=== PATIENT | male | born 1975 | race Hispanic/Latino ===

== ENCOUNTER 2016-07-16 14:07 | Emergency (ER) | payer MEDICAID ==
[2016-07-16 14:08] VITALS: BMI 34.2
[2016-07-16 14:25] VITALS: O2SAT 96
--- NOTE | 2016-07-16 15:13 | C.PDOC ---
History Of Present Illness 41-year-old male, PMHx includes chronic back pain and EtOH Abuse, presents to the emergency department with complaints of back and leg pain/tremors for the past few days. Patient states he has not had a drink in two days and is trying to self-detox. Patients last ED visit was two days ago. Denies vomiting, fevers , chills, or any other associated symptoms. No other complaints at this time. Time Seen by Provider: 07/16/16 14:17 Chief Complaint (Nursing): Back Pain History Per: Patient Onset/Duration Of Symptoms: Days Past Medical History Reviewed: Historical Data, Nursing Documentation, Vital Signs Vital Signs: Last Vital Signs Temp 98.5 F 07/16/16 15:25 Pulse 103 H 07/16/16 15:25 Resp 20 07/16/16 15:25 BP 131/91 H 07/16/16 15:25 Pulse Ox 96 07/16/16 15:25 - Medical History PMH: Anxiety, Arthritis (to knees per pt), Asthma, Back Problems (lumbar spine injury), Bipolar Disorder, Depression, HTN (per old chart but pt denies), Paranoia Denies: Diabetes, Hepatitis, HIV, Chronic Kidney Disease, Seizures, Sexually Transmitted Disease - [facility] Procedures DETOXIFICATION SERVICES FOR SUBSTANCE ABUSE TREATMENT (09/30/15) GROUP ROLE PLAYER FOR SUBSTANCE ABUSE TREATMENT, PSYCHOEDUCATION (06/26/16) GROUP PSYCHOTHERAPY (06/26/16) INDIV PSYCHOTHERAPY FOR SUBSTANCE ABUSE TREATMENT, SUPPORT (06/26/16) INDIVIDUAL PSYCHOTHERAPY, SUPPORTIVE (06/26/16) INJECT/INFUSE NEC (10/10/14) MEDICATION MANAGEMENT (06/26/16) NEBULIZER THERAPY (02/16/14) Family History: States: Unknown Family Hx - Social History Hx Tobacco Use: Yes (light smoker) Hx Alcohol Use: Yes Hx Substance Use: No - Immunization History Hx Tetanus Toxoid Vaccination: Yes Hx Influenza Vaccination: Yes Hx Pneumococcal Vaccination: Yes Review Of Systems Except As Marked, All Systems Reviewed And Found Negative. Constitutional: Negative for: Fever Gastrointestinal: Negative for: Vomiting Musculoskeletal: Positive for: Back Pain, Leg Pain Skin: Negative for: Rash Physical Exam - Physical Exam Appears: Non-toxic, No Acute Distress Skin: Warm, Dry, No Rash Eye(s): bilateral: Normal Inspection Nose: Normal Oral Mucosa: Moist Lips: Normal Appearing Neck: Normal ROM Respiratory: No Accessory Muscle Use Back: No Paraspinal Tenderness Extremity: Normal ROM ED Course And Treatment O2 Sat by Pulse Oximetry: 96 Disposition Counseled Patient/Family Regarding: Diagnosis, Need For Followup, Rx Given - Disposition Referrals: [facility] [Outside] Disposition: HOME/ ROUTINE Disposition Time: 15:15 Condition: STABLE Additional Instructions: FOLLOW UP WITH YOUR DOCTOR/CLINIC IN 1-2 DAYS USE MEDICATIONS NEEDED RETURN TO ER IF SYMPTOMS WORSEN Prescriptions: Cyclobenzaprine [Cyclobenzaprine HCl] 10 mg PO BID PRN #12 tab PRN Reason: pain/muscle Naproxen [Naprosyn Tab] 375 mg PO BID PRN #20 tab PRN Reason: pain Instructions: Back Pain (ED) Print Language: THAI - POA Present On Arrival: None - Clinical Impression Clinical Impression: Thoracic back pain, Chronic back pain - Scribe Statement The provider has reviewed the documentation as recorded by the Lenka Apodaca All medical record entries made by the Kennaibcarter were at my direction and personally dictated by me. I have reviewed the chart and agree that the record accurately reflects my personal performance of the history, physical exam, medical decision making, and the department course for this patient. I have also personally directed, reviewed, and agree with the discharge instructions and disposition.
[2016-07-16 15:27] VITALS: BP 131/91; PULSE 103; RESP 20; TEMP 98.5
== END 2016-07-16 15:35 | disposition home or self-care (01) ==
LOC: C.ER 14:07
DX: M54.6 Pain in thoracic spine (principal)

== ENCOUNTER 2016-07-19 11:39 | Inpatient (IN) | payer MEDICAID ==
[2016-07-19 11:39] VITALS: BMI 34.2
--- NOTE | 2016-07-19 13:41 | C.PDOC ---
History Of Present Illness The patient, a 41 y/o male whose PMHx includes alcohol abuse, presents to the ED requesting alcohol detoxification. Patient states he has been a heavy drinker for the past 2 years. He states he normally drinks around 2 pints of Vodka per day and reports his last drink was around 4 days ago. Patient reports body aches, tremors, weakness and nausea. Patient is concerned about impending withdrawal and alcohol related seizures (although he has no PMHx of such). Patient denies fever, chills, headache, vomiting, diarrhea at this time. Time Seen by Provider: 07/19/16 12:04 Chief Complaint (Nursing): Substance Abuse History Per: Patient History/Exam Limitations: intoxication Onset/Duration Of Symptoms: Days Current Symptoms Are (Timing): Still Present Suicide/Self Injury Attempted (Context): None Modifying Factor(s): Alcohol Associated Symptoms: denies: Suicidal Thoughts, Suicidal Plan Additional History Per: Patient Past Medical History Reviewed: Historical Data, Nursing Documentation, Vital Signs Vital Signs: Last Vital Signs Temp 98.2 F 07/19/16 15:40 Pulse 82 07/19/16 15:40 Resp 18 07/19/16 15:40 BP 119/77 07/19/16 15:40 Pulse Ox 96 07/19/16 15:57 - Medical History PMH: Anxiety, Arthritis (to knees per pt), Asthma, Back Problems (lumbar spine injury), Bipolar Disorder, Depression, HTN (per old chart but pt denies), Paranoia Denies: Diabetes, Hepatitis, HIV, Chronic Kidney Disease, Seizures, Sexually Transmitted Disease Surgical History: No Surg Hx - [facility] Procedures DETOXIFICATION SERVICES FOR SUBSTANCE ABUSE TREATMENT (09/30/15) GROUP ELECTORAL OFFICER FOR SUBSTANCE ABUSE TREATMENT, PSYCHOEDUCATION (06/26/16) GROUP PSYCHOTHERAPY (06/26/16) INDIV PSYCHOTHERAPY FOR SUBSTANCE ABUSE TREATMENT, SUPPORT (06/26/16) INDIVIDUAL PSYCHOTHERAPY, SUPPORTIVE (06/26/16) INJECT/INFUSE NEC (10/10/14) MEDICATION MANAGEMENT (06/26/16) NEBULIZER THERAPY (02/16/14) Family History: States: Unknown Family Hx - Social History Hx Tobacco Use: Yes (light smoker) Hx Alcohol Use: Yes Hx Substance Use: No - Immunization History Hx Tetanus Toxoid Vaccination: Yes Hx Influenza Vaccination: Yes Hx Pneumococcal Vaccination: Yes Review Of Systems Constitutional: Negative for: Fever, Chills Gastrointestinal: Positive for: Nausea. Negative for: Vomiting, Diarrhea Musculoskeletal: Positive for: Other (generalized body aches ) Neurological: Positive for: Weakness, Other (+tremors ) Psych: Positive for: Withdrawal, Other (+alcohol detox ). Negative for: Suicidal ideation Physical Exam - Physical Exam Appears: No Acute Distress, Other (+obese ) Skin: Normal Color, Warm, Dry Head: Atraumatic, Normacephalic Eye(s): bilateral: Normal Inspection Oral Mucosa: Moist Neck: Supple Chest: Symmetrical, No Deformity, No Tenderness Cardiovascular: Rhythm Regular, No Murmur, Other (+tachycardia ) Respiratory: Normal Breath Sounds, No Rales, No Rhonchi, No Wheezing Gastrointestinal/Abdominal: Soft, No Tenderness, No Guarding, No Rebound Back: Normal Inspection, No Vertebral Tenderness, No Paraspinal Tenderness Extremity: Normal ROM, Capillary Refill (less than 2 seconds) Neurological/Psych: Oriented x3, Normal Speech, Other (tremulous ) Gait: Steady ED Course And Treatment - Laboratory Results Result Diagrams: 07/19/16 14:07 07/19/16 14:07 ECG: Interpreted By Me, Viewed By Me ECG Rhythm: Sinus Rhythm Interpretation Of ECG: Normal Sinus Rhythm at 80bpm. No ST elevations or depressions. Rate From EC O2 Sat by Pulse Oximetry: 96 (on RA) Pulse Ox Interpretation: Normal Medical Decision Making Medical Decision Making: Impression: 41 y/o male requesting alcohol detox Plan: * labs * EKG * CXR * Librium PO * reassess and disposition Progress Notes: labs, EKG, CXR ordered and reviewed. Patient received Librium PO. Plan is to admit patient to medicine for impending withdrawals as he awaits detox beds. Disposition Discussed With : Grant Jacobsen Counseled Patient/Family Regarding: Studies Performed, Diagnosis - Disposition Disposition: HOSPITALIZED Disposition Time: 13:41 Condition: GUARDED - Clinical Impression Clinical Impression: Alcohol withdrawal - Scribe Statement The provider has reviewed the documentation as recorded by the Scribe (Carmen Sewell) Provider Attestation: All medical record entries made by the Scribe were at my direction and personally dictated by me. I have reviewed the chart and agree that the record accurately reflects my personal performance of the history, physical exam, medical decision making, and the department course for this patient. I have also personally directed, reviewed, and agree with the discharge instructions and disposition. Decision To Admit - Pt Status Changed To: Hospital Disposition Of: Inpatient - Admit Certification Admit to Inpatient:: After my assessment, the patient will require hospitalization for at least two midnights. This is because of the severity of symptoms shown, intensity of services needed, and/or the medical risk in this patient being treated as an outpatient. - InPatient: Physician Admission Certification: I certify that this patient requires 2 or more midnights of care for the following reason:: alcohol withdrawl - . Bed Request Type: Regular Patient Diagnosis: Alcohol withdrawal
[2016-07-19 14:15] LABS: URINE BILIRUBIN NEGATIVE (NEGATIVE); URINE BLOOD NEGATIVE (NEGATIVE); URINE COLOR Yellow (YELLOW); URINE GLUCOSE (UA) NORMAL (Normal); URINE KETONE NEGATIVE (NEGATIVE); URINE LEUKOCYTE ESTERASE NEG Leu/uL (Negative); URINE PROTEIN NEGATIVE (NEGATIVE); URINE UROBILINOGEN NORMAL mg/dL (0.2-1.0); WBC URINE < 1 /hpf (0-5)
[2016-07-19 14:16] LABS: BASO # 0.1 K/uL (0.0-0.2); BASO % 1.3 % (0.0-2.0); EOS # 0.3 K/uL (0.0-0.7); EOS % 3.2 % (0.0-4.0); HEMATOCRIT 47.6 % (35.0-51.0); LYMPH # 2.3 K/uL (1.0-4.3); LYMPH % 23.3 % (20.0-40.0); MEAN CELL VOLUME 90.4 fL (80.0-94.0); MEAN CORPUSCULAR HEMOGLOBIN 30.8 pg (27.0-31.0); MEAN CORPUSCULAR HGB CONC 34.1 g/dL (33.0-37.0); MEAN PLATELET VOLUME 7.7 fL (7.2-11.7); MONO # 0.7 K/uL (0.0-0.8); MONO % 7.6 % (0.0-10.0); NRBC % 0.1 % (0.0-2.0); RED CELL DISTRIBUTION WIDTH 13.2 % (11.5-14.5); WHITE BLOOD COUNT 9.7 K/uL (4.8-10.8)
[2016-07-19 14:22] LABS: CHLORIDE 99 mmol/L (98-107); POTASSIUM 3.6 mmol/L (3.6-5.2); SODIUM 142 mmol/L (132-148)
[2016-07-19 14:24] LABS: BILIRUBIN,TOTAL 0.8 mg/dL (0.2-1.3); CARBON DIOXIDE 28 mmol/L (22-30); GFR AFRICAN-AMERICAN > 60
[2016-07-19 14:25] LABS: ALB/GLOB RATIO 1.3 (1.0-2.1); ALKALINE PHOSPHATASE 38 U/L (38-126); ALT/SGPT 33 U/L (21-72); AST/SGOT 22 U/L (17-59); BLOOD UREA NITROGEN 11 mg/dL (9-20); CALCIUM 9.3 mg/dl (8.6-10.4); GLUCOSE,RANDOM 79 mg/dL (75-110); TOTAL PROTEIN 7.8 g/dL (6.3-8.3)
[2016-07-19 14:26] LABS: ALCOHOL SERUM < 10 mg/dl (0-10)
--- NOTE | 2016-07-19 14:52 | RAD ---
PROCEDURE: CHEST RADIOGRAPH, 1 VIEW HISTORY: Detox/Psy COMPARISON: None available. FINDINGS: LUNGS: No focal consolidation. Slight increased coarse interstitial markings with a few scattered peribronchial cuffing changes. Findings could represent sequela of reactive/inflammatory airway disease or viral illness. PLEURA: No pneumothorax or pleural fluid seen. CARDIOVASCULAR: Normal. OSSEOUS STRUCTURES: No significant abnormalities. VISUALIZED UPPER ABDOMEN: Normal. OTHER FINDINGS: None. IMPRESSION: No focal consolidation. Slight increased coarse interstitial markings with a few scattered peribronchial cuffing changes. Findings could represent sequela of reactive/inflammatory airway disease or viral illness.
[2016-07-19] MEDS ORDERED: Dextrose 5%/0.45% NS 1,000 ML IV ONE (20:14)
[2016-07-19] MEDS: Dextrose 5%/0.45% NS 1,000 ML IV SCH (20:25)
[2016-07-20 01:52] VITALS: RESP 20
[2016-07-20] MEDS: Dextrose 5%/0.45% NS 1,000 ML IV SCH ×2 (08:49→21:20)
[2016-07-20] MEDS: Thiamine 100 mg/ml Inj IM SCH (09:03)
--- NOTE | 2016-07-20 22:22 | CARD ---
APPROVED REPORT EKG Measurement Heart [id number] <Conclusion> Normal sinus rhythm Normal ECG
--- NOTE | 2016-07-21 07:52 | HP ---
The patient is a 41-year-old male admitted to the hospital with chief complaint of alcohol withdrawal , shaking. The patient came, found to be severe alcohol withdrawal, advised admission. The patient has history of alcoholism, hypertension. PHYSICAL EXAMINATION: GENERAL: The patient is awake, alert, shaking of extremities present. VITAL SIGNS: Temperature 98, pulse 90. HEENT: Within normal limits. NECK: Supple. CHEST: Symmetrical. HEART: Regular. ABDOMEN: Soft. EXTREMITIES: No edema. The patient suffers from alcohol withdrawal, alcoholism. The patient placed on bedrest, IV fluids, t hiamine, folic acid, Ativan p.r.n. Grant Castrejon MD cc: [phone] TT: 07/20/2016 12:05:10 en
[2016-07-21 07:54] LABS: BASO # 0.1 K/uL (0.0-0.2); EOS # 0.5 K/uL (0.0-0.7); EOS % 5.6 % (0.0-4.0); HEMATOCRIT 45.7 % (35.0-51.0); LYMPH % 22.7 % (20.0-40.0); MEAN CELL VOLUME 90.7 fL (80.0-94.0); MEAN CORPUSCULAR HEMOGLOBIN 31.3 pg (27.0-31.0); MEAN CORPUSCULAR HGB CONC 34.5 g/dL (33.0-37.0); MEAN PLATELET VOLUME 7.8 fL (7.2-11.7); MONO # 0.6 K/uL (0.0-0.8); MONO % 7.2 % (0.0-10.0); RED CELL DISTRIBUTION WIDTH 13.1 % (11.5-14.5); WHITE BLOOD COUNT 8.7 K/uL (4.8-10.8)
[2016-07-21 08:10] LABS: CHLORIDE 99 mmol/L (98-107); SODIUM 137 mmol/L (132-148)
[2016-07-21 08:11] LABS: POTASSIUM 3.8 mmol/L (3.6-5.2)
[2016-07-21 08:13] LABS: ALB/GLOB RATIO 1.3 (1.0-2.1); ALKALINE PHOSPHATASE 37 U/L (38-126); ALT/SGPT 20 U/L (21-72); AST/SGOT 18 U/L (17-59); BILIRUBIN,TOTAL 0.5 mg/dL (0.2-1.3); BLOOD UREA NITROGEN 12 mg/dL (9-20); CARBON DIOXIDE 25 mmol/L (22-30); GFR AFRICAN-AMERICAN > 60; GLUCOSE,RANDOM 92 mg/dL (75-110); TOTAL PROTEIN 6.8 g/dL (6.3-8.3)
[2016-07-21 08:14] LABS: CALCIUM 8.7 mg/dl (8.6-10.4)
--- NOTE | 2016-07-21 08:59 | CP.PCM.PN ---
Subjective - Date & Time of Evaluation Date of Evaluation: 07/21/16 Time of Evaluation: 07:10 - Subjective Subjective: PGY2 Medicine Note - Dr. Jacobsen's Service: Patient seen and examined at bedside this AM. Patient states he has been a heavy drinker for the past 2 years. He states he normally drinks around 2 pints of Vodka per day and reports his last drink was around 6 days ago. Patient reports tremors, body aches, weakness and balance impairment. Patient says he has difficulty walking to the bathroom because his balance is off. Patient denies fever, chills, nausea, vomiting, diarrhea, constipation, dysuria. Objective - Vital Signs/Intake and Output Vital Signs (last 24 hours): Temp Pulse Resp BP Pulse Ox 97.9 F 91 H 20 132/81 95 07/21/16 08:00 07/21/16 08:00 07/21/16 08:00 07/21/16 08:00 07/21/16 08:00 - Medications Medications: Current Medications Chlordiazepoxide (Librium) 50 mg PO Q6H [facility] Stop: 07/22/16 16:01 Last Admin: 07/21/16 04:29 Dose: 50 mg Folic Acid (Folic Acid) 1 mg PO DAILY [facility] Last Admin: 07/20/16 09:03 Dose: 1 mg Dextrose/Sodium Chloride (Dextrose 5%/0.45% Ns 1000 Ml) 1,000 mls @ 80 mls/hr IV .[id number] [facility] Last Admin: 07/20/16 21:20 Dose: 80 mls/hr Lorazepam (Ativan) 2 mg IVP Q6H PRN PRN Reason: Anxiety Last Admin: 07/21/16 07:35 Dose: 2 mg Pantoprazole Sodium (Protonix Inj) 40 mg IVP DAILY [facility] Last Admin: 07/20/16 09:03 Dose: 40 mg Thiamine HCl (Vitamin B1 Inj) 100 mg IM DAILY [facility] Last Admin: 07/20/16 09:03 Dose: 100 mg - Labs Labs: 07/21/16 07:38 07/21/16 07:38 - Constitutional Appears: Non-toxic, No Acute Distress - Head Exam Head Exam: NORMAL INSPECTION - Eye Exam Eye Exam: EOMI - ENT Exam ENT Exam: Mucous Membranes Moist - Respiratory Exam Respiratory Exam: Clear to Ausculation Bilateral, NORMAL BREATHING PATTERN. absent: Rales, Rhonchi, Wheezes - Cardiovascular Exam Cardiovascular Exam: REGULAR RHYTHM, +S1, +S2. absent: Gallop, Rubs, Murmur - GI/Abdominal Exam GI & Abdominal Exam: Soft, Normal Bowel Sounds. absent: Distended, Firm, Tenderness - Extremities Exam Extremities Exam: absent: Pedal Edema - Neurological Exam Neurological Exam: Alert, Oriented x3 - Psychiatric Exam Psychiatric exam: Normal Affect, Normal Mood - Skin Skin Exam: Diaphoretic Assessment and Plan - Assessment and Plan (Free Text) Assessment: 1. Alcohol withdrawal Lirbrium Taper Ativan 2mg IVP Q6H PRN anziety Thiamine 100mg IM daily Folic Acid 1mg PO daily Psych consult - Dr. Lowe - help appreciated Awaiting call back to see if patient can be transferred to detox 2. Prophylaxis PT eval Protonix 40mg PO daily
[2016-07-21] MEDS: Dextrose 5%/0.45% NS 1,000 ML IV SCH (11:19)
[2016-07-21] MEDS: Thiamine 100 mg/ml Inj IM SCH (11:24)
[2016-07-21] MEDS: Pantoprazole 40 mg EC Tab PO SCH (11:32)
[2016-07-22 08:13] LABS: BASO # 0.1 K/uL (0.0-0.2); BASO % 1.4 % (0.0-2.0); EOS # 0.4 K/uL (0.0-0.7); EOS % 5.4 % (0.0-4.0); HEMATOCRIT 48.3 % (35.0-51.0); LYMPH # 2.1 K/uL (1.0-4.3); MEAN CELL VOLUME 91.4 fL (80.0-94.0); MEAN CORPUSCULAR HEMOGLOBIN 30.4 pg (27.0-31.0); MEAN CORPUSCULAR HGB CONC 33.2 g/dL (33.0-37.0); MONO # 0.6 K/uL (0.0-0.8); MONO % 6.7 % (0.0-10.0); NRBC % 0.1 % (0.0-2.0); RED CELL DISTRIBUTION WIDTH 13.2 % (11.5-14.5); WHITE BLOOD COUNT 8.3 K/uL (4.8-10.8)
[2016-07-22 08:22] LABS: CHLORIDE 98 mmol/L (98-107); SODIUM 140 mmol/L (132-148)
[2016-07-22 08:24] LABS: BILIRUBIN,TOTAL 0.5 mg/dL (0.2-1.3); GFR AFRICAN-AMERICAN > 60
[2016-07-22 08:25] LABS: ALB/GLOB RATIO 1.4 (1.0-2.1); ALKALINE PHOSPHATASE 38 U/L (38-126); ALT/SGPT 21 U/L (21-72); AST/SGOT 22 U/L (17-59); BLOOD UREA NITROGEN 13 mg/dL (9-20); CARBON DIOXIDE 28 mmol/L (22-30); GLUCOSE,RANDOM 87 mg/dL (75-110); TOTAL PROTEIN 7.2 g/dL (6.3-8.3)
[2016-07-22 08:26] LABS: CALCIUM 9.2 mg/dl (8.6-10.4)
--- NOTE | 2016-07-22 09:38 | CP.PCM.PN ---
Subjective - Date & Time of Evaluation Date of Evaluation: 07/22/16 Time of Evaluation: 07:05 - Subjective Subjective: PGY2 Medicine Note - Dr. Jacobsen's Service: Patient seen and examined at bedside this AM. Patient reports improvement in tremors, body aches, weakness and balance impairment. Patient says he has difficulty walking to the bathroom because his balance is off. Patient was told by physical therapy he should use a rolling walker or wheelchair to get arlund but he says he likes walking. Patient was counseled to not walk around on his home because of risk of falling. Patient denies fever, chills, nausea, vomiting, diarrhea, constipation, dysuria. Objective - Vital Signs/Intake and Output Vital Signs (last 24 hours): Temp Pulse Resp BP Pulse Ox 97.2 F L 84 20 123/84 98 07/22/16 08:00 07/22/16 08:00 07/22/16 08:00 07/22/16 08:00 07/22/16 08:00 Intake and Output: 07/22/16 07/22/16 06:59 18:59 Intake Total 360 Balance 360 - Medications Medications: Current Medications Chlordiazepoxide (Librium) 50 mg PO Q6H [facility] Stop: 07/22/16 16:01 Last Admin: 07/22/16 04:12 Dose: 50 mg Folic Acid (Folic Acid) 1 mg PO DAILY [facility] Last Admin: 07/21/16 11:22 Dose: 1 mg Dextrose/Sodium Chloride (Dextrose 5%/0.45% Ns 1000 Ml) 1,000 mls @ 80 mls/hr IV .[id number] [facility] Last Admin: 07/21/16 11:19 Dose: Not Given Lorazepam (Ativan) 2 mg IVP Q6H PRN PRN Reason: Anxiety Last Admin: 07/22/16 01:50 Dose: 2 mg Pantoprazole Sodium (Protonix Ec Tab) 40 mg PO DAILY [facility] Last Admin: 07/21/16 11:32 Dose: Not Given Thiamine HCl (Vitamin B1 Inj) 100 mg IM DAILY [facility] Last Admin: 07/21/16 11:24 Dose: 100 mg - Labs Labs: 07/22/16 07:58 07/22/16 07:58 - Constitutional Appears: Non-toxic, No Acute Distress - Head Exam Head Exam: NORMAL INSPECTION - Eye Exam Eye Exam: EOMI - ENT Exam ENT Exam: Mucous Membranes Moist - Respiratory Exam Respiratory Exam: Clear to Ausculation Bilateral, NORMAL BREATHING PATTERN. absent: Rales, Rhonchi, Wheezes - Cardiovascular Exam Cardiovascular Exam: REGULAR RHYTHM, +S1, +S2. absent: Gallop, Rubs, Murmur - GI/Abdominal Exam GI & Abdominal Exam: Soft, Normal Bowel Sounds. absent: Firm, Guarding, Tenderness - Extremities Exam Extremities Exam: Normal Capillary Refill. absent: Pedal Edema - Neurological Exam Neurological Exam: Alert, Oriented x3 - Psychiatric Exam Psychiatric exam: Normal Affect, Normal Mood - Skin Skin Exam: Normal Color, Warm Assessment and Plan - Assessment and Plan (Free Text) Assessment: 1. Alcohol withdrawal Lirbrium Taper Ativan 2mg IVP Q6H PRN anziety Thiamine 100mg IM daily Folic Acid 1mg PO daily Psych consult - Dr. Lowe - help appreciated Awaiting call back to see if patient can be transferred to detox 2. Alcoholic Myopathy Case management referral for discharge planning to [facility]/TCU 2. Prophylaxis PT eval - recommends TCU Protonix 40mg PO daily
[2016-07-22 10:18] LABS: POTASSIUM 4.1 mmol/L (3.6-5.2)
[2016-07-22] MEDS: Pantoprazole 40 mg EC Tab PO SCH (10:40)
[2016-07-22] MEDS: Thiamine 100 mg/ml Inj IM SCH (10:59)
[2016-07-23 01:43] VITALS: TEMP 97.4
[2016-07-23 07:06] LABS: BASO # 0.1 K/uL (0.0-0.2); BASO % 1.3 % (0.0-2.0); EOS # 0.5 K/uL (0.0-0.7); EOS % 7.4 % (0.0-4.0); HEMATOCRIT 44.4 % (35.0-51.0); LYMPH # 1.9 K/uL (1.0-4.3); MEAN CELL VOLUME 91.2 fL (80.0-94.0); MEAN CORPUSCULAR HEMOGLOBIN 30.6 pg (27.0-31.0); MEAN CORPUSCULAR HGB CONC 33.5 g/dL (33.0-37.0); MEAN PLATELET VOLUME 7.9 fL (7.2-11.7); MONO # 0.6 K/uL (0.0-0.8); MONO % 8.7 % (0.0-10.0); RED CELL DISTRIBUTION WIDTH 13.2 % (11.5-14.5); WHITE BLOOD COUNT 6.9 K/uL (4.8-10.8)
[2016-07-23 07:18] LABS: CHLORIDE 100 mmol/L (98-107); SODIUM 140 mmol/L (132-148)
[2016-07-23 07:19] LABS: POTASSIUM 3.6 mmol/L (3.6-5.2)
[2016-07-23 07:21] LABS: ALB/GLOB RATIO 1.4 (1.0-2.1); ALKALINE PHOSPHATASE 33 U/L (38-126); ALT/SGPT 23 U/L (21-72); AST/SGOT 21 U/L (17-59); BILIRUBIN,TOTAL 0.3 mg/dL (0.2-1.3); BLOOD UREA NITROGEN 14 mg/dL (9-20); CARBON DIOXIDE 27 mmol/L (22-30); GFR AFRICAN-AMERICAN > 60; GLUCOSE,RANDOM 94 mg/dL (75-110); TOTAL PROTEIN 6.5 g/dL (6.3-8.3)
[2016-07-23 07:22] LABS: CALCIUM 8.6 mg/dl (8.6-10.4)
[2016-07-23 08:49] VITALS: BP 135/87; PULSE 77; O2SAT 98
[2016-07-23] MEDS: Pantoprazole 40 mg EC Tab PO SCH (09:59)
--- NOTE | 2016-07-23 10:28 | CP.PCM.PN ---
Subjective - Date & Time of Evaluation Date of Evaluation: 07/23/16 Time of Evaluation: 07:10 - Subjective Subjective: PGY2 Medicine Note - Dr. Jacobsen's Service: Patient seen and examined at bedside this AM. Patient says he feels he has his balance back and is no longer weak. Patient reports walking around the floor many times yesterday. Physical therapy cleared him for DC home. Patient denies fever, chills, nausea, vomiting, diarrhea, constipation, dysuria. Patient reports lipoma on his back for many years that hurts him sometimes. Objective - Vital Signs/Intake and Output Vital Signs (last 24 hours): Temp Pulse Resp BP Pulse Ox 97.4 F L 77 20 135/87 98 07/23/16 08:00 07/23/16 08:00 07/23/16 08:00 07/23/16 08:00 07/23/16 08:00 Intake and Output: 07/23/16 07/23/16 06:59 18:59 Intake Total 240 Balance 240 - Medications Medications: Current Medications Folic Acid (Folic Acid) 1 mg PO DAILY [facility] Last Admin: 07/23/16 09:59 Dose: 1 mg Lorazepam (Ativan) 1 mg PO Q6H PRN PRN Reason: Seizure activity Last Admin: 07/22/16 15:06 Dose: 1 mg Pantoprazole Sodium (Protonix Ec Tab) 40 mg PO DAILY [facility] Last Admin: 07/23/16 09:59 Dose: 40 mg Quetiapine Fumarate (Seroquel) 50 mg PO DAILY [facility] Last Admin: 07/23/16 09:59 Dose: 50 mg Thiamine HCl (Vitamin B1 Tab) 100 mg PO DAILY [facility] Last Admin: 07/23/16 09:59 Dose: 100 mg - Labs Labs: 07/23/16 06:30 07/23/16 06:30 - Constitutional Appears: Non-toxic, No Acute Distress - Head Exam Head Exam: NORMAL INSPECTION - Eye Exam Eye Exam: EOMI - ENT Exam ENT Exam: Mucous Membranes Moist - Respiratory Exam Respiratory Exam: Clear to Ausculation Bilateral, NORMAL BREATHING PATTERN. absent: Rales, Rhonchi, Wheezes - Cardiovascular Exam Cardiovascular Exam: REGULAR RHYTHM, +S1, +S2. absent: Gallop, Rubs, Murmur - GI/Abdominal Exam GI & Abdominal Exam: Soft, Normal Bowel Sounds. absent: Firm, Guarding, Tenderness - Extremities Exam Extremities Exam: Normal Capillary Refill. absent: Pedal Edema - Neurological Exam Neurological Exam: Alert, Oriented x3 - Psychiatric Exam Psychiatric exam: Normal Affect, Normal Mood - Skin Skin Exam: Normal Color, Warm Assessment and Plan - Assessment and Plan (Free Text) Assessment: 1. Alcohol withdrawal Lirbrium Taper Ativan 2mg IVP Q6H PRN anxiety Thiamine 100mg IM daily Folic Acid 1mg PO dailyx 2. Alcoholic Myopathy Resolved 2. Prophylaxis PT eval - recommends dc home now Protonix 40mg PO daily Discharge patient home with thiamine and multivitamin and instructions to follow up with PMD
[2016-07-23] MEDS ORDERED: Vancomycin 1 gm/NS 200 ml 200 ML IVPB ONE (12:00)
--- NOTE | 2016-07-23 15:09 | PCM.PSYCH ---
Initial Psychiatric Evaluation - Initial Psychiatric Evaluation Type of Admission: Voluntary Legal Status: Capacity Chief Complaint (in patient's own words): "I was drinking a lot again" History of Present Illness and Precipitating Events: Pt seen, chart reviewed, case discussed with team. Pt is a 41yo M that is well known to the psych team for detox and treatment of his EtOH use d/o and MDD. Pt was recently discharged from the psych unit after having been treated for EtOH withdrawal and for his mood disorder, he states that he relapsed a day after he was discharged because he couldn't get his medication anywhere due to lack of insurance. He reports to drinking 2 pints of vodka daily after he was sent home and came back after he started to experience more withdrawal symptoms. The pt appears to be in no distress on examination and is not complaining of any withdrawal symptoms. He indicates a desire to continue treatment as an outpt and help to set that up. The pt currently denies tremors, nausea, headache, vomiting, hallucinations, delusions, seizures, homicidal ideation, suicidal ideation. Social: homeless; Tobacco - 2-3 cig/day; ETOH - 3-4 pint/day; denies illicit drug use Psych Hx: Bipolar, anxiety, depression, suicidal attempt in his 20s (OD on pills ) Family Psych Hx: denies Family substance use: denies PMHx: denies Medications: denies Current Medications: Active Medications Generic Name Dose Route Start Last Admin Trade Name Freq PRN Reason Stop Dose Admin Folic Acid 1 mg 07/20/16 10:00 07/23/16 09:59 Folic Acid PO 1 mg DAILY [facility] Administration Lorazepam 1 mg 07/22/16 10:30 07/22/16 15:06 Ativan PO 1 mg Q6H PRN Administration Seizure activity Pantoprazole Sodium 40 mg 07/21/16 10:00 07/23/16 09:59 Protonix Ec Tab PO 40 mg DAILY [facility] Administration Quetiapine Fumarate 50 mg 07/22/16 22:00 07/23/16 09:59 Seroquel PO 50 mg DAILY [facility] Administration Thiamine HCl 100 mg 07/23/16 10:00 07/23/16 09:59 Vitamin B1 Tab PO 100 mg DAILY [facility] Administration Past Psychiatric History - Past Psychiatric History Previous Treatment History: Inpatient Pertinent Medical Hx (Current Medical&Sleep Prob, Allergies): Allergies Allergy/AdvReac Type Severity Reaction Status Date / Time No Known Allergies Allergy Verified 07/16/16 14:31 Clindamycin [Cleocin] 300 mg PO Q6H #28 cap 07/23/16 Multivitamin [Multivitamins] 1 each PO DAILY #30 capsule 07/23/16 Thiamine [Vitamin B1 Tab] 100 mg PO DAILY #30 tab 07/23/16 Review of Systems - Review of Systems All systems: reviewed and no additional remarkable complaints except - Psychiatric Psychiatric: Anxiety, Irritability Mental Status Examination - Personal Presentation Personal Presentation: Looks stated age - Affect Affect: Constricted - Motor Activity Motor Activity: Calm - Reliability in Providing Information Reliability in Providing Information: Good - Speech Speech: Organized - Mood Mood: Anxious - Formal Thought Process Formal Thought Process: No Impairment - Obsessions/Compulsions Obsessions: No Compulsions: No - Cognitive Functions Orientation: Person, Place, Situation, Time Sensorium: Alert Attention/Concentration: Attentive Abstract Thinking: [place] Estimate of Intelligence: Below average Judgement: Intact, as evidence by: Good judgement, Intact, as evidence by: Insight regarding need for hospitalization - Risk Risk: Withdrawal, Diminished functioning - Strength & Assets Inventory Strength & Assets Inventory: Cooperative - Limitations Limitations: Living alone DSM 5 DX - DSM 5 DSM 5 Diagnosis: Primary: bipolar disorder depressed moderate EtOH use d/o - severe - Recommended/Plan of Treatment Treatment Recommendations and Plan of Treatment: Patient psychiatric stable will be discharged Prognosis: good with treament
== END 2016-07-23 15:10 | disposition home or self-care (01) | DRG 750 ==
LOC: C.ER 11:39 → C.9E 13:42 → C.3T 23:17
PROVIDERS: ADMIT Internal Medicine Pulmonary Disease; ATTEND Internal Medicine Pulmonary Disease
DX: F10.230 Alcohol dependence with withdrawal, uncomplicated (principal); G72.1 Alcoholic myopathy; F31.32 Bipolar disorder, current episode depressed, moderate; M65.9 Synovitis and tenosynovitis, unspecified; J45.909 Unspecified asthma, uncomplicated; F17.210 Nicotine dependence, cigarettes, uncomplicated; M17.0 Bilateral primary osteoarthritis of knee

== ENCOUNTER 2016-08-15 20:05 | Emergency (ER) | payer MEDICAID, OTHER ==
[2016-08-15 20:06] VITALS: BMI 34.2
[2016-08-15 20:16] VITALS: BP 123/85
[2016-08-15] MEDS ORDERED: Albuterol-Ipratrop 3 mg / 0.5 (3 ml) UD ONE ×2 (20:47→21:35)
[2016-08-15] MEDS ORDERED: Albuterol-Ipratrop 3 mg / 0.5 (3 ml) UD INH STA (20:47)
--- NOTE | 2016-08-15 20:53 | C.PDOC ---
History Of Present Illness 41 y/o male presents to the ED with complains of fever, sore throat, cough and chest congestion for the past 3 days. Pt was seen at [place] yesterday, discharged with prescriptions which he wasn't able to fill. Pt denies chest pain , abdominal pain, nausea, vomiting, diarrhea or any other complaints. Time Seen by Provider: 08/15/16 20:41 Chief Complaint (Nursing): Flu-like Symptoms History Per: Patient History/Exam Limitations: no limitations Onset/Duration Of Symptoms: Days Current Symptoms Are (Timing): Still Present Sick Contacts (Context): None Associated Symptoms: Sore Throat, Cough, Other (chest congestion). denies: Fever, Vomiting, Diarrhea Severity: Moderate Recent travel outside of the [place]: No Past Medical History Reviewed: Historical Data, Nursing Documentation, Vital Signs Vital Signs: Last Vital Signs Temp 99.6 F 08/15/16 21:54 Pulse 108 H 08/15/16 21:54 Resp 20 08/15/16 21:54 BP 123/85 08/15/16 20:12 Pulse Ox 96 08/15/16 21:54 - Medical History PMH: Anxiety, Arthritis, Asthma, Back Problems (lumbar spine injury), Bipolar Disorder, Depression, HTN, Paranoia - [facility] Procedures DETOXIFICATION SERVICES FOR SUBSTANCE ABUSE TREATMENT (09/30/15) GROUP SPEECH LANGUAGE PATHOLOGIST FOR SUBSTANCE ABUSE TREATMENT, PSYCHOEDUCATION (06/26/16) GROUP PSYCHOTHERAPY (07/11/16) INDIV PSYCHOTHERAPY FOR SUBSTANCE ABUSE TREATMENT, SUPPORT (07/11/16) INDIVIDUAL PSYCHOTHERAPY, SUPPORTIVE (06/26/16) INJECT/INFUSE NEC (10/10/14) MEDICATION MANAGEMENT (06/26/16) NEBULIZER THERAPY (02/16/14) Family History: States: Unknown Family Hx - Social History Hx Tobacco Use: Yes (light smoker) Hx Alcohol Use: Yes Hx Substance Use: No - Immunization History Hx Tetanus Toxoid Vaccination: Yes Hx Influenza Vaccination: Yes Hx Pneumococcal Vaccination: Yes Review Of Systems Except As Marked, All Systems Reviewed And Found Negative. Constitutional: Positive for: Fever ENT: Positive for: Throat Pain Cardiovascular: Negative for: Chest Pain Respiratory: Positive for: Cough, Other (chest congestion) Gastrointestinal: Negative for: Nausea, Vomiting, Abdominal Pain, Diarrhea Physical Exam - Physical Exam Appears: Non-toxic, No Acute Distress Skin: Warm, Dry, No Rash Head: Atraumatic, Normacephalic Eye(s): bilateral: Normal Inspection Ear(s): Bilateral: Normal Oral Mucosa: Moist Throat: Erythema (mild), No Exudate Neck: Normal ROM, Supple Chest: Symmetrical Cardiovascular: Rhythm Regular, No Friction Rub, No Murmur Respiratory: Normal Breath Sounds, No Rales, No Rhonchi, No Wheezing, Other ( actively coughing) Gastrointestinal/Abdominal: Soft, No Tenderness Back: Normal Inspection, No CVA Tenderness Extremity: Normal ROM, No Swelling Extremity: Bilateral: Atraumatic Neurological/Psych: Oriented x3, Normal Speech, Normal Motor Gait: Steady ED Course And Treatment O2 Sat by Pulse Oximetry: 97 (on room air) Pulse Ox Interpretation: Normal Progress Note: Plan: motrin, nebulizer treatment Medical Decision Making Medical Decision Making: Old records reviewed the patient was seen in [facility] for similar symptoms and was discharged home on Z-pack but did not fill the medications. CXR done yesterday and will not repeat as lungs remain CTA and no wheezing at this time. On re-exam, the patient reports improvement of symptoms. Abdomen is soft, non- tender and tolerating PO well. Lungs are CTA, heart is RRR. Follow up with the medical doctor within 1-2 days without fail. Return if worsened. s Disposition - Disposition Referrals: [facility] [Outside] Disposition: HOME/ ROUTINE Disposition Time: 22:08 Condition: GOOD Additional Instructions: Follow up with the medical doctor within 1-2 days without fail. Return if worsened. 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 - Scribe Statement The provider has reviewed the documentation as recorded by the Kennaibcarter [facility] All medical record entries made by the Kennaibcarter were at my direction and personally dictated by me. I have reviewed the chart and agree that the record accurately reflects my personal performance of the history, physical exam, medical decision making, and the department course for this patient. I have also personally directed, reviewed, and agree with the discharge instructions and disposition.
[2016-08-15 21:55] VITALS: PULSE 108; RESP 20; TEMP 99.6
[2016-08-15 22:10] VITALS: O2SAT 97
== END 2016-08-15 22:24 | disposition home or self-care (01) ==
LOC: C.ER 20:05
DX: J45.909 Unspecified asthma, uncomplicated (principal); Z87.891 Personal history of nicotine dependence

== ENCOUNTER 2016-08-29 16:28 | Inpatient (IN) | payer MEDICAID, OTHER ==
[2016-08-29 16:28] VITALS: BMI 34.2
[2016-08-29 17:33] LABS: BASO # 0.1 K/uL (0.0-0.2); BASO % 0.8 % (0.0-2.0); EOS # 0.2 K/uL (0.0-0.7); EOS % 1.5 % (0.0-4.0); HEMATOCRIT 46.2 % (35.0-51.0); LYMPH # 3.9 K/uL (1.0-4.3); LYMPH % 32.1 % (20.0-40.0); MEAN CELL VOLUME 89.1 fL (80.0-94.0); MEAN CORPUSCULAR HEMOGLOBIN 30.6 pg (27.0-31.0); MEAN CORPUSCULAR HGB CONC 34.3 g/dL (33.0-37.0); MEAN PLATELET VOLUME 7.4 fL (7.2-11.7); MONO % 8.3 % (0.0-10.0); NRBC % 0.1 % (0.0-2.0); RED CELL DISTRIBUTION WIDTH 13.2 % (11.5-14.5)
[2016-08-29 17:39] LABS: CHLORIDE 107 mmol/L (98-107); SODIUM 148 mmol/L (132-148)
[2016-08-29 17:40] LABS: POTASSIUM 3.9 mmol/L (3.6-5.2)
[2016-08-29 17:41] LABS: GFR AFRICAN-AMERICAN > 60
[2016-08-29 17:42] LABS: ALB/GLOB RATIO 1.4 (1.0-2.1); ALKALINE PHOSPHATASE 46 U/L (38-126); ALT/SGPT 39 U/L (21-72); AST/SGOT 25 U/L (17-59); BILIRUBIN,TOTAL 0.6 mg/dL (0.2-1.3); BLOOD UREA NITROGEN 12 mg/dL (9-20); CALCIUM 8.7 mg/dl (8.6-10.4); CARBON DIOXIDE 23 mmol/L (22-30); GLUCOSE,RANDOM 115 mg/dL (75-110); TOTAL PROTEIN 7.4 g/dL (6.3-8.3)
[2016-08-29 17:43] LABS: ALCOHOL SERUM 271 mg/dl (0-10)
--- NOTE | 2016-08-29 18:51 | C.PDOC ---
History Of Present Illness <Magi Otoole - Last Filed: 08/29/16 19:03> <Edison Ramirez - Last Filed: 08/29/16 23:56> 41 y/o male presents to ED with complaint of suicidal ideation. Patient states he wants to "jump in front of a bus". Also reports alcohol use today. Otherwise , denies suicidal attempt, homicidal ideation, or other medical complaints. ( Magi Otoole) History Per: Patient History/Exam Limitations: no limitations Current Symptoms Are (Timing): Still Present Suicide/Self Injury Attempted (Context): None Modifying Factor(s): Alcohol Associated Symptoms: Suicidal Thoughts, Suicidal Plan Recent travel outside of the [place]: No <Magi Otoole - Last Filed: 08/29/16 19:03> <Edison Ramirez - Last Filed: 08/29/16 23:56> Time Seen by Provider: 08/29/16 17:39 Chief Complaint (Nursing): Psychiatric Evaluation Past Medical History Reviewed: Historical Data, Nursing Documentation, Vital Signs - Medical History PMH: Anxiety, Arthritis, Asthma, Back Problems (lumbar spine injury), Bipolar Disorder, Depression, HTN, Paranoia Family History: States: Unknown Family Hx - Social History Hx Tobacco Use: Yes (light smoker) Hx Alcohol Use: (couple mths ago) Hx Substance Use: Yes (3 years ago) - Immunization History Hx Tetanus Toxoid Vaccination: Yes Hx Influenza Vaccination: Yes Hx Pneumococcal Vaccination: Yes <Magi Otoole - Last Filed: 08/29/16 19:03> Review Of Systems Except As Marked, All Systems Reviewed And Found Negative. Constitutional: Negative for: Fever, Chills Cardiovascular: Negative for: Chest Pain Respiratory: Negative for: Cough, Shortness of Breath, Wheezing Gastrointestinal: Negative for: Vomiting, Abdominal Pain Skin: Negative for: Rash Neurological: Negative for: Headache, Dizziness Psych: Positive for: Suicidal ideation <Magi Otoole - Last Filed: 08/29/16 19:03> Physical Exam - Physical Exam Appears: Non-toxic, No Acute Distress, Other (EtOH on breath) Skin: Normal Color, Warm, Dry Head: Atraumatic, Normacephalic Eye(s): bilateral: Normal Inspection Chest: Symmetrical Cardiovascular: Rhythm Regular Respiratory: Normal Breath Sounds, No Rales, No Rhonchi, No Wheezing Gastrointestinal/Abdominal: Soft, No Tenderness, No Guarding, No Rebound Back: Normal Inspection Extremity: Normal ROM, Capillary Refill (< 2 sec. ) Neurological/Psych: Oriented x3, Normal Speech, Normal Cognition <Magi Otoole - Last Filed: 08/29/16 19:03> ED Course And Treatment - Laboratory Results Result Diagrams: 08/29/16 17:25 08/29/16 17:25 O2 Sat by Pulse Oximetry: 96 (RA) Pulse Ox Interpretation: Normal Progress Note: Labs ordered. Crisis eval ordered. As per crisis, further managment pending clinical sobriety. <Magi Otoole - Last Filed: 08/29/16 19:03> - Laboratory Results Result Diagrams: 08/29/16 17:25 08/29/16 17:25 Pulse Ox Interpretation: Normal <Edison Ramirez - Last Filed: 08/29/16 23:56> ED OBSERVATION Date of observation admission: 08/29/16 Time of observation admission: 19:03 <Magi Otoole - Last Filed: 08/29/16 19:03> <Jamila Ramirezdi - Last Filed: 08/29/16 23:56> - Observation admission statement Patient is being placed in observation because:: ETOH intoxication (Magi Otoole) - Goals of Observation Goals of observation are:: will be evaluated by Crisis when sober (Magi Otoole) Disposition - Disposition Disposition Time: 19:04 <Magi Otoole - Last Filed: 08/29/16 19:03> Discussed With : Maude Spicer Comment: accepted the pt on her service and took over the care at 11:55 PM <Edison Ramirez - Last Filed: 08/29/16 23:56> - Disposition Disposition: HOSPITALIZED Condition: FAIR - Clinical Impression Clinical Impression: Alcohol abuse, Alcohol intoxication, Major depression - 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 - Scribe Statement The provider has reviewed the documentation as recorded by the Scribe <Magi Otoole - Last Filed: 08/29/16 19:03> <Edison Ramirez - Last Filed: 08/29/16 23:56> - Scribe Statement César Moussa Provider Scribe Attestation: All medical record entries made by the Scribe were at my direction and personally dictated by me. I have reviewed the chart and agree that the record accurately reflects my personal performance of the history, physical exam, medical decision making, and the department course for this patient. I have also personally directed, reviewed, and agree with the discharge instructions and disposition. (Magi Otoole) Physician Patient Turnover Patient Signed Over To: Edison Ramirez Handoff Comments: pending sobriety, crisis eval <Magi Otoole - Last Filed: 08/29/16 19:03> Decision To Admit <Magi Otoole - Last Filed: 08/29/16 19:03> - Pt Status Changed To: Hospital Disposition Of: Inpatient - Admit Certification Admit to Inpatient:: After my assessment, the patient will require hospitalization for at least two midnights. This is because of the severity of symptoms shown, intensity of services needed, and/or the medical risk in this patient being treated as an outpatient. - InPatient: Physician Admission Certification: I certify that this patient requires 2 or more midnights of care for the following reason:: After my assessment, the patient will require hospitalization for at least two midnights. This is because of the severity of symptoms shown, intensity of services needed, and/or the medical risk in this patient being treated as an outpatient. - . Bed Request Type: Psychiatry Admitting Physician: Maude Spicer <Edison Ramirez - Last Filed: 08/29/16 23:56> - . Patient Diagnosis: Alcohol abuse, Alcohol intoxication, Major depression
[2016-08-29 22:27] LABS: RBC URINE 1 /hpf (0-3); URINE BACTERIA RARE (<OCC); URINE BILIRUBIN NEGATIVE (NEGATIVE); URINE BLOOD NEGATIVE (NEGATIVE); URINE COLOR Yellow (YELLOW); URINE GLUCOSE (UA) NORMAL (Normal); URINE KETONE 1+ mg/dL (NEGATIVE); URINE LEUKOCYTE ESTERASE NEG Leu/uL (Negative); URINE PROTEIN NEGATIVE (NEGATIVE); URINE UROBILINOGEN NORMAL mg/dL (0.2-1.0); WBC URINE 2 /hpf (0-5)
[2016-08-30] MEDS ORDERED: Pneumococcal 23-Valent Vaccine IM ONE (01:34)
[2016-08-30 07:27] VITALS: O2SAT 99
[2016-08-30] MEDS: Multiple Vitamins Tab PO SCH (09:56)
[2016-08-30] MEDS: buPROPion 150 mg/24 Hours XL Tab PO SCH (10:06)
[2016-08-31] MEDS: buPROPion 150 mg/24 Hours XL Tab PO SCH (09:11)
[2016-08-31] MEDS: Multiple Vitamins Tab PO SCH (09:11)
--- NOTE | 2016-09-01 08:38 | PCM.PSYCH ---
Initial Psychiatric Evaluation - Initial Psychiatric Evaluation Legal Status: Capacity Chief Complaint (in patient's own words): i wanted to jump in front of a bus Patient's Reaction to Hospitalization: i feel safe here History of Present Illness and Precipitating Events: pt is a 41 year old white single homeless unemployed male who suffers from depression and anxiety. He was recently discharged from but did not take meds or keep outpt appointment because he had no money. Pt now has medicaid so can get his meds. Pt lost his job with [employer] in [place]. Pt has been living in shelters. Pt states his mother has stage 4 Breast Cancer and is being cared for at home.Pt has auditory hallucinations. he feels helpless, worthless and hopeless. He has no energy, no motivation and is anhedonic. He lacks insight and jugment into his illness and life situation Current Medications: Active Medications Generic Name Dose Route Start Last Admin Trade Name Freq PRN Reason Stop Dose Admin Benztropine Mesylate 0.5 mg 08/30/16 10:00 08/31/16 17:53 Cogentin PO 0.5 mg BID TOREY Administration Bupropion HCl 150 mg 08/30/16 10:00 08/31/16 09:11 Wellbutrin Xl PO 150 mg DAILY TOREY Administration Chlordiazepoxide 25 mg 08/30/16 06:00 09/01/16 06:27 Librium PO 09/03/16 05:59 25 mg Q12H TOREY Administration Taper Chlordiazepoxide 25 mg 08/30/16 01:32 08/30/16 01:42 Librium PO 25 mg Q6 PRN Administration withdrawals Escitalopram Oxalate 10 mg 08/31/16 10:00 08/31/16 09:17 Lexapro PO 10 mg DAILY TOREY Administration Folic Acid 1 mg 08/30/16 10:00 08/31/16 09:11 Folic Acid PO 1 mg DAILY TOREY Administration Haloperidol 5 mg 08/30/16 10:00 08/31/16 17:53 Haldol PO 5 mg BID TOREY Administration Hydroxyzine HCl 25 mg 08/30/16 01:22 08/30/16 01:41 Atarax PO 25 mg Q6 PRN Administration Agitation Multivitamins 1 tab 08/30/16 10:00 08/31/16 09:11 Hexavitamin PO 1 tab DAILY TOREY Administration Quetiapine Fumarate 25 mg 08/30/16 18:00 08/31/16 17:53 Seroquel PO 25 mg TID TOREY Administration Thiamine HCl 100 mg 08/30/16 10:00 08/31/16 09:11 Vitamin B1 Tab PO 100 mg DAILY TOREY Administration Trazodone HCl 50 mg 08/30/16 22:00 08/31/16 21:18 Desyrel PO 50 mg HS TOREY Administration Past Psychiatric History - Past Psychiatric History Prior Professional Help: SEE HPI Pertinent Medical Hx (Current Medical&Sleep Prob, Allergies): Allergies Allergy/AdvReac Type Severity Reaction Status Date / Time No Known Allergies Allergy Verified 08/29/16 16:48 Albuterol HFA [Ventolin HFA 90 mcg/actuation (8 g)] 1 puff IH Q4 #1 inhaler Fluticasone/Salmeterol 250/50 [Advair Diskus 250/50] 1 puff IH Q12 puff Methylprednisolone [Medrol Dose Pack (21 tabs)] 4 mg PO ASDIR #21 mg 08/20/16 Review of Systems - Constitutional Constitutional: Malaise - EENT Eyes: UNREMARKABLE Ears: UNREMARKABLE Nose/Mouth/Throat: UNREMARKABLE - Cardiovascular Cardiovascular: UNREMARKABLE - Respiratory Respiratory: UNREMARKABLE - Gastrointestinal Gastrointestinal: UNREMARKABLE - Musculoskeletal Musculoskeletal: UNREMARKABLE - Neurological Neurological: UNREMARKABLE - Psychiatric Psychiatric: Anhedonia, Anxiety, Auditory Hallucinations, Change in Appetite, Depression, Difficulty Concentrating, Hallucinations, Hopelessness, Suicidal Ideation - Endocrine Endocrine: UNREMARKABLE - Hematologic/Lymphatic Hematologic: UNREMARKABLE Mental Status Examination - Personal Presentation Personal Presentation: Looks older than stated age - Affect Affect: Constricted - Motor Activity Motor Activity: Calm - Reliability in Providing Information Reliability in Providing Information: Fair - Speech Speech: Organized - Mood Mood: Depressed, Anxious - Formal Thought Process Formal Thought Process: Hallucinations - Hallucinations/Delusions Hallucinations: Auditory - Cognitive Functions Orientation: Person, Place, Situation, Time Sensorium: Alert Attention/Concentration: Easily distracted Abstract Thinking: [place] Estimate of Intelligence: Average Judgement: Intact, as evidence by: Insight regarding need for hospitalization Memory: Recent intact, as evidence by: 3/3 object recall, Remote intact, as evidenced by: Ability to recall historical events - Risk Risk: Withdrawal - Strength & Assets Inventory Strength & Assets Inventory: Employment history - Limitations Limitations: Living alone DSM 5 DX - DSM 5 DSM 5 Diagnosis: major depressive disorder, recurrent, severe with psychotic features alcohol use disorder severe alcohol withdrawal mDD- Wellbutrin Lexapro [place] CBT recraetional group and milieu therapy supportive psychotherapy alcohol use disorder supportive psychotherapy psychoeducation TX CBT alcohol use disorder Librium taper - Smoking Cessation Smoking Cessation Initiated: No
--- NOTE | 2016-09-01 08:51 | PCM.PYCHPN ---
Psychiatric Progress Note - Psychiatric Progress Note Patient seen today, length of contact: 15 min Patient Chief Complaint: ii am sad and depressedbut not suicidal Problems Identified/Issues Discussed: need for adherence. PAWS mourning process Medical Problems: nothing acute Diagnostic Results: reviewed DSM 5 Symptoms Update: anhedonia aenergy avolition Medication Change: Yes (librium taper) Medical Record Reviewed: Yes Mental Status Examination - Cognitive Function Orientation: Person, Place, Situation, Time Memory: Intact Attention: WNL Concentration: Poor Association: WNL Fund of Knowledge: WNL - Mood Mood: Depressed, Anxious - Affect Affect: Constricted - Formal Thought Process Formal Thought Process: Hallucinations - Suicidal Ideation Suicidal Ideation: No - Homicidal Ideation Homicidal Ideation: No Goal/Treatment Plan - Goal/Treatment Plan Need for Continued Stay: Discharge may exacerbated symptoms Progress Toward Problem(s) and Goals/Treatment Plan: MDD continue Wellbutrin Lexapro Alcohol willie Librium taper Estimated Date of D/C: 09/08/16 - Smoking Cessation Smoking Cessation Initiated: No
[2016-09-01] MEDS: Multiple Vitamins Tab PO SCH (10:26)
[2016-09-01] MEDS: buPROPion 150 mg/24 Hours XL Tab PO SCH (10:26)
--- NOTE | 2016-09-01 10:47 | PCM.PYCHPN ---
Psychiatric Progress Note - Psychiatric Progress Note Patient seen today, length of contact: 15 min Patient Chief Complaint: 'I feel terrible' Problems Identified/Issues Discussed: Patient seen and evaluated, chart reviewed and discussed with nurse. 41 yo M discussed at morning meeting and it was reported that the patient was positive for alcohol and opiate use, suicidal ideation with plans to jump in front of a bus. Upon follow up patient reports that he feeling "terrible", anxious, and feels the same compared to yesterday, and that detox is going "OK". Positive for hearing one voice that tells him to keep drinking and give up on life. Denies current suicidal ideation. Patient is experiencing withdrawal symptoms including body aches, sweating, shaking. Did not sleep well and is taking naps during the day to compensate. Medication side effects include sluggishness that began Thursday. Denies agitation and anger. Denies wanting to hurt self or others, seeing things that are not really there, feeling like people are out to get him, following him, reading his mind and thoughts. Denies chest pain, shortness of breath, fever, chills, headache, nausea, vomiting, abdominal pain. Patient plans to speak to a clinical social work aide about his plans for after the hospital stay. General impression includes depressed and tired disposition. Medication Change: Yes (librium taper) Medical Record Reviewed: Yes Mental Status Examination - Cognitive Function Orientation: Person, Place, Situation, Time Memory: Intact Attention: WNL Concentration: Poor Association: WNL Fund of Knowledge: WNL - Mood Mood: Depressed, Anxious - Affect Affect: Constricted - Speech Speech: Soft - Formal Thought Process Formal Thought Process: Hallucinations, Delusions, Paranoia - Suicidal Ideation Suicidal Ideation: No - Homicidal Ideation Homicidal Ideation: No Goal/Treatment Plan - Goal/Treatment Plan Need for Continued Stay: Discharge may exacerbated symptoms Progress Toward Problem(s) and Goals/Treatment Plan: Major depressive disorder, recurrent, severe with psychotic features CBT Psychoeducation Supportive therapy, group therapy, individual therapy Lexapro 10 mg daily Trazodone 50 mg by mouth daily at bedtime Haldol 5 mg by mouth twice a day Wellbutrin 150 mg by mouth daily Seroquel 5 mg daily TID Alcohol use disorder severe CBT Psychoeducation Supportive therapy, individual therapy Use SD for abstinence Alcohol withdrawal uncomplicated CBT Psychoeducation Supportive therapy, individual therapy Librium when necessary Start Librium taper Start folic acid/thiamine/multivitamin Estimated Date of D/C: 09/08/16
[2016-09-02 08:04] VITALS: RESP 18
[2016-09-02] MEDS: Multiple Vitamins Tab PO SCH (09:34)
[2016-09-02] MEDS: buPROPion 150 mg/24 Hours XL Tab PO SCH (09:34)
--- NOTE | 2016-09-02 11:04 | PCM.PYCHPN ---
Psychiatric Progress Note - Psychiatric Progress Note Patient seen today, length of contact: 15 min Patient Chief Complaint: I'm feeling better Problems Identified/Issues Discussed: Patient seen and evaluated, chart reviewed and discussed with nurse. 41 yo M discussed at morning meeting and it was reported that the patient slept through the night. Yesterday he stayed in his room and also went to the TV room. Upon follow up patient reports improvement in the anxiety and depression. Patient reports improvement in the voices and denies any visual hallucinations. Patient has trouble falling asleep, but says staying asleep is not a problem. Positive appetite. Current symptoms include sweating, shaking. Patient feels the medication is making him 'groggy'. Denies suicidal or homicidal ideation. Denies shortness of breath, chest pain, nausea, vomiting, abdominal pain, body aches, headache, fever, chills. Patient is still unsure of what his plans are after discharge. General impression includes depressed and anxious demeanor. Medication Change: Yes (librium taper, discontinue Seroquel) Medical Record Reviewed: Yes Mental Status Examination - Cognitive Function Orientation: Person, Place, Situation, Time Memory: Intact Attention: WNL Concentration: WNL Association: WNL Fund of Knowledge: WNL - Mood Mood: Depressed, Anxious - Affect Affect: Constricted - Speech Speech: Soft - Formal Thought Process Formal Thought Process: Hallucinations - Suicidal Ideation Suicidal Ideation: No - Homicidal Ideation Homicidal Ideation: No Goal/Treatment Plan - Goal/Treatment Plan Need for Continued Stay: Discharge may exacerbated symptoms Progress Toward Problem(s) and Goals/Treatment Plan: Major depressive disorder, recurrent, severe with psychotic features CBT Psychoeducation Supportive therapy, group therapy, individual therapy Lexapro 10 mg daily Trazodone 50 mg by mouth daily at bedtime Haldol 5 mg by mouth twice a day Wellbutrin 150 mg by mouth daily Seroquel 5 mg daily TID Alcohol use disorder severe CBT Psychoeducation Supportive therapy, individual therapy Use PR for abstinence Alcohol withdrawal uncomplicated CBT Psychoeducation Supportive therapy, individual therapy Librium when necessary Start Librium taper Start folic acid/thiamine/multivitamin Estimated Date of D/C: 09/08/16 - Smoking Cessation Smoking Cessation Initiated: No
[2016-09-03] MEDS: Multiple Vitamins Tab PO SCH (10:14)
--- NOTE | 2016-09-03 10:25 | PCM.PYCHDC ---
Mental Status Examination - Mental Status Examination Orientation: Person, Place, Situation, Time Memory: Intact Mood: Neutral Affect: Constricted Speech: Soft Attention: WNL Concentration: WNL Association: WNL Fund of Knowledge: WNL Formal Thought Process: No Impairment Description of patient's judgement and insight: good, fair Psychotic Thoughts and Behaviors: denies any AVH Suicidal Ideation: No Current Homicidal Ideation?: No Discharge Summary - Discharge Note Reason for Hospitalization: pt is a 41 year old white single homeless unemployed male who suffers from depression and anxiety. He was recently discharged from but did not take meds or keep outpt appointment because he had no money. Pt now has medicaid so can get his meds. Pt lost his job with [employer] in [place]. Pt has been living in shelters. Pt states his mother has stage 4 Breast Cancer and is being cared for at home.Pt has auditory hallucinations. he feels helpless, worthless and hopeless. He has no energy, no motivation and is anhedonic. He lacks insight and jugment into his illness and life situation Consultations:: List each consultation separately and include: 1. Reason for request. 2. Findings. 3. Follow-up Summary of Hospital Course include:: 1. Description of specific treatment plan utilized for patients during their course of treatmen. 2. Summarize the time- course for resolution of acute symptoms and/or regressed behaviors. 3. Describe issues identified and worked on during hospitalization. 4. Describe medication utilized. 5. Describe medical problems identified and treated. 6. Reassessment of suicide risk Summary of Hospital Course: During the course of his stay, patient (pt) started progressively improving and he no longer remained irritable, depressed, suicidal and paranoid. His mood and paranoia were improved and he started attending groups and meetings and started socializing. Patient denied any feelings of hopelessness, helplessness, and worthlessness, denied any problem with the sleep or appetite, denied suicidal ideation or homicidal ideation. Pt denied any auditory or visual hallucinations. Some changes were made in his current medications and patient was discharged on following medications. He tolerated these medications very well and denied any side effects. - Final Diagnosis (DSM 5) Condition upon Discharge: FAIR DSM 5: Major depressive disorder, recurrent, severe with psychotic features Alcohol use disorder severe Alcohol withdrawal uncomplicated Disposition: HOME/ ROUTINE Follow-up Treatment Plan: Education: Pt was educated and counseled about the risks and benefits of taking and not taking medications. Pt was educated and counseled about the risks of drinking and abusing drugs. Pt was educated and counseled to go to the ER or call 911 if pt develop suicidal ideation or homicidal ideation, worsening of symptoms or severe side effects of the meds. Prescriptions/Medication Reconciliation: buPROPion XL [Wellbutrin XL] 150 mg PO DAILY #30 t24 Escitalopram [Lexapro] 10 mg PO DAILY #30 tab Haloperidol [Haldol] 5 mg PO BID #60 tab traZODone [Desyrel] 50 mg PO HS #30 tab - Smoking Cessation Smoking Cessation Medication prescribed: No - Antipsychotic Medications Pt discharged on 2 or more routine antipsychotic medications: No
[2016-09-03] MEDS: buPROPion 150 mg/24 Hours XL Tab PO SCH (10:41)
[2016-09-03 14:18] VITALS: BP 119/79; PULSE 77; TEMP 98.1
== END 2016-09-03 11:40 | disposition home or self-care (01) | DRG 430 ==
LOC: C.ER 16:28 → OBSVTOIN 19:05 → INTOOBSV 19:05 → C.9OBSV 19:05 → OBSVTOIN 23:54 → C.5E 08-30 00:07 → C.9OBSV 08-30 00:07 → C.5E 08-30 00:26
PROVIDERS: ADMIT Psychiatry & Neurology Psychiatry; ATTEND Psychiatry & Neurology Psychiatry
PROC: GZ3ZZZZ Medication Management (ICD-10-PCS; principal; 2016-08-29)
PROC: GZHZZZZ Group Psychotherapy (ICD-10-PCS; 2016-08-29)
PROC: GZ56ZZZ Individual Psychotherapy, Supportive (ICD-10-PCS; 2016-08-29)
PROC: HZ2ZZZZ Detoxification Services for Substance Abuse Treatment (ICD-10-PCS; 2016-08-29)
DX: F33.3 Major depressive disorder, recurrent, severe with psychotic symptoms (principal); F10.230 Alcohol dependence with withdrawal, uncomplicated; F17.210 Nicotine dependence, cigarettes, uncomplicated; M19.90 Unspecified osteoarthritis, unspecified site; I10 Essential (primary) hypertension; J45.909 Unspecified asthma, uncomplicated; F41.9 Anxiety disorder, unspecified; Z59.0 Homelessness

== ENCOUNTER 2016-09-12 18:08 | Observation (INO) | payer MEDICAID ==
[2016-09-12 18:08] VITALS: BMI 34.7
--- NOTE | 2016-09-12 20:12 | C.PDOC ---
History Of Present Illness Patient presents to the ER intoxicated with a complaint of hearing voices telling him to hurt himself. Denies any physical complaint at this time. Time Seen by Provider: 09/12/16 20:12 Chief Complaint (Nursing): Psychiatric Evaluation History Per: Patient History/Exam Limitations: no limitations Onset/Duration Of Symptoms: Hrs Current Symptoms Are (Timing): Still Present Suicide/Self Injury Attempted (Context): None Modifying Factor(s): Alcohol Severity: None Pain Scale Rating Of: 0 Associated Symptoms: Suicidal Thoughts. denies: Depression, Suicidal Plan Involuntary Hold By: None Recent travel outside of the [place]: No Past Medical History Reviewed: Historical Data, Nursing Documentation, Vital Signs Vital Signs: Last Vital Signs Temp 98 F 09/13/16 00:37 Pulse 102 H 09/13/16 00:37 Resp 20 09/13/16 00:37 BP 130/74 09/13/16 00:37 Pulse Ox 96 09/13/16 01:26 - Medical History PMH: Anxiety, Arthritis, Asthma (WAS TAKING MEDS FOR SAME BUT REFUSED IT FOR NOW ), Back Problems (lumbar spine injury), Bipolar Disorder, Depression, HTN, Paranoia Surgical History: No Surg Hx - [facility] Procedures DETOXIFICATION SERVICES FOR SUBSTANCE ABUSE TREATMENT (08/29/16) GROUP WE[employer]ER [employer]IVITY FOR SUBSTANCE ABUSE TREATMENT, PSYCHOEDUCATION (06/26/16) GROUP PSYCHOTHERAPY (08/29/16) INDIV PSYCHOTHERAPY FOR SUBSTANCE ABUSE TREATMENT, SUPPORT (07/11/16) INDIVIDUAL PSYCHOTHERAPY, SUPPORTIVE (08/29/16) INJECT/INFUSE NEC (10/10/14) MEDICATION MANAGEMENT (08/29/16) NEBULIZER THERAPY (02/16/14) Family History: States: No Known Family Hx - Social History Hx Tobacco Use: Yes (light smoker) Hx Alcohol Use: Yes Hx Substance Use: Yes - Immunization History Hx Tetanus Toxoid Vaccination: Yes Hx Influenza Vaccination: Yes Hx Pneumococcal Vaccination: Yes Review Of Systems Constitutional: Negative for: Fever, Chills Gastrointestinal: Negative for: Nausea, Vomiting Neurological: Positive for: Other (ETOH intoxication) Psych: Positive for: Suicidal ideation, Other (Hearing voices) Physical Exam - Physical Exam Appears: Non-toxic, Other (ETOH on breath) Skin: Warm, Dry Oral Mucosa: Moist Chest: Symmetrical, No Tenderness Cardiovascular: Rhythm Regular, No Murmur Respiratory: No Rales, No Rhonchi, No Wheezing Gastrointestinal/Abdominal: Soft, No Tenderness Neurological/Psych: Oriented x3 ED Course And Treatment - Laboratory Results Result Diagrams: 09/12/16 20:28 09/12/16 20:28 O2 Sat by Pulse Oximetry: 96 (Room air) Pulse Ox Interpretation: Normal Progress Note: Blood work and urinalysis ordered. Consulted w/ crisis. Patient was cleared for discharge by dr Marshall Reevaluation Time: 05:39 Reassessment Condition: Improved ED OBSERVATION Discharge: Yes Date of observation admission: 09/12/16 Time of observation admission: 20:20 - Observation admission statement Patient is being placed in observation because:: acute alcohol intoxication - Goals of Observation Goals of observation are:: sobriety - Progress Note Progress Note: 09/12/16 20:20 vitals stable, 09/12/16 22:20 no complaints 09/13/16 00:25 vitals stable 09/13/16 02:25 no complaints Disposition Counseled Patient/Family Regarding: Studies Performed, Diagnosis, Need For Followup - Disposition Disposition: HOME/ ROUTINE Disposition Time: 20:12 Condition: FAIR - Clinical Impression Clinical Impression: Depression - Scribe Statement The provider has reviewed the documentation as recorded by the Scribe Kota Rodriguez All medical record entries made by the Kennaibcarter were at my direction and personally dictated by me. I have reviewed the chart and agree that the record accurately reflects my personal performance of the history, physical exam, medical decision making, and the department course for this patient. I have also personally directed, reviewed, and agree with the discharge instructions and disposition.
[2016-09-12 20:32] LABS: BASO # 0.1 K/uL (0.0-0.2); BASO % 1.3 % (0.0-2.0); EOS # 0.4 K/uL (0.0-0.7); EOS % 4.8 % (0.0-4.0); LYMPH # 2.9 K/uL (1.0-4.3); LYMPH % 36.9 % (20.0-40.0); MEAN CELL VOLUME 90.1 fL (80.0-94.0); MEAN CORPUSCULAR HEMOGLOBIN 30.4 pg (27.0-31.0); MEAN CORPUSCULAR HGB CONC 33.7 g/dL (33.0-37.0); MEAN PLATELET VOLUME 7.7 fL (7.2-11.7); MONO # 0.7 K/uL (0.0-0.8); MONO % 8.5 % (0.0-10.0); NRBC % 0.1 % (0.0-2.0); RED CELL DISTRIBUTION WIDTH 13.8 % (11.5-14.5); WHITE BLOOD COUNT 7.9 K/uL (4.8-10.8)
[2016-09-12 20:41] LABS: CHLORIDE 103 mmol/L (98-107); SODIUM 142 mmol/L (132-148)
[2016-09-12 20:42] LABS: POTASSIUM 3.4 mmol/L (3.6-5.2)
[2016-09-12 20:44] LABS: ALB/GLOB RATIO 1.5 (1.0-2.1); ALKALINE PHOSPHATASE 42 U/L (38-126); ALT/SGPT 26 U/L (21-72); AST/SGOT 19 U/L (17-59); BILIRUBIN,TOTAL 0.6 mg/dL (0.2-1.3); BLOOD UREA NITROGEN 13 mg/dL (9-20); CALCIUM 9.1 mg/dl (8.6-10.4); CARBON DIOXIDE 25 mmol/L (22-30); GFR AFRICAN-AMERICAN > 60; GLUCOSE,RANDOM 97 mg/dL (75-110); TOTAL PROTEIN 7.2 g/dL (6.3-8.3)
[2016-09-12 20:45] LABS: ALCOHOL SERUM 207 mg/dl (0-10)
[2016-09-12 20:46] LABS: RBC URINE 1 /hpf (0-3); URINE BILIRUBIN NEGATIVE (NEGATIVE); URINE COLOR Yellow (YELLOW); URINE GLUCOSE (UA) NORMAL (Normal); URINE KETONE NEGATIVE (NEGATIVE); URINE LEUKOCYTE ESTERASE NEG Leu/uL (Negative); URINE PROTEIN NEGATIVE (NEGATIVE); URINE UROBILINOGEN NORMAL mg/dL (0.2-1.0); WBC URINE < 1 /hpf (0-5)
[2016-09-12 20:49] LABS: URINE BLOOD NEGATIVE (NEGATIVE)
[2016-09-13 00:38] VITALS: RESP 20; TEMP 98
[2016-09-13 06:30] VITALS: BP 130/80; PULSE 80; O2SAT 98
== END 2016-09-13 05:40 | disposition home or self-care (01) ==
LOC: C.ER 18:08 → C.9OBSV 20:18
PROVIDERS: ADMIT Emergency Medicine; ATTEND Emergency Medicine
DX: F10.129 Alcohol abuse with intoxication, unspecified (principal); F20.9 Schizophrenia, unspecified; F31.9 Bipolar disorder, unspecified; I10 Essential (primary) hypertension
CPT/HCPCS: 36415; 80053; 80320; 80324; 80345; 80346; 80349; 80353; 80358; 80361; 81001; 83992; 85025; 99284; G0378

== ENCOUNTER 2016-09-14 15:15 | Emergency (ER) | payer MEDICAID ==
[2016-09-14 15:15] VITALS: BMI 34.7
[2016-09-14 15:25] VITALS: RESP 20; TEMP 97.8
[2016-09-14 16:29] VITALS: BP 122/85; PULSE 101; O2SAT 97
--- NOTE | 2016-09-14 16:33 | C.PDOC ---
History Of Present Illness 41-year-old male, presents to the emergency department requesting detox from alcohol. Patients last drink was a few hours ago. He has a hx of multiple visits to ED for similar complaint. No SI/HI, or physical complaint at this time. Time Seen by Provider: 09/14/16 15:53 Chief Complaint (Nursing): Substance Abuse History Per: Patient History/Exam Limitations: no limitations Onset/Duration Of Symptoms: Days Current Symptoms Are (Timing): Still Present Past Medical History Reviewed: Historical Data, Nursing Documentation, Vital Signs Vital Signs: Last Vital Signs Temp 97.8 F 09/14/16 15:18 Pulse 101 H 09/14/16 16:28 Resp 20 09/14/16 16:28 BP 122/85 09/14/16 16:28 Pulse Ox 97 09/14/16 18:55 - Medical History PMH: Anxiety, Arthritis, Asthma (WAS TAKING MEDS FOR SAME BUT REFUSED IT FOR NOW ), Back Problems (lumbar spine injury), Bipolar Disorder, COPD, Depression, HTN , Paranoia Denies: Diabetes, Hepatitis, HIV, Chronic Kidney Disease, Seizures, Sexually Transmitted Disease - [facility] Procedures DETOXIFICATION SERVICES FOR SUBSTANCE ABUSE TREATMENT (08/29/16) GROUP DIESEL LUBE TECH FOR SUBSTANCE ABUSE TREATMENT, PSYCHOEDUCATION (06/26/16) GROUP PSYCHOTHERAPY (08/29/16) INDIV PSYCHOTHERAPY FOR SUBSTANCE ABUSE TREATMENT, SUPPORT (07/11/16) INDIVIDUAL PSYCHOTHERAPY, SUPPORTIVE (08/29/16) INJECT/INFUSE NEC (10/10/14) MEDICATION MANAGEMENT (08/29/16) NEBULIZER THERAPY (02/16/14) Family History: States: Unknown Family Hx - Social History Hx Tobacco Use: Yes (light smoker) Hx Alcohol Use: Yes Hx Substance Use: Yes - Immunization History Hx Tetanus Toxoid Vaccination: Yes Hx Influenza Vaccination: Yes Hx Pneumococcal Vaccination: Yes Review Of Systems Except As Marked, All Systems Reviewed And Found Negative. Constitutional: Negative for: Fever, Chills Cardiovascular: Negative for: Chest Pain Respiratory: Negative for: Shortness of Breath Neurological: Negative for: Weakness, Numbness Psych: Negative for: Suicidal ideation Physical Exam - Physical Exam Appears: Non-toxic, No Acute Distress Head: Atraumatic Eye(s): bilateral: Normal Inspection Neck: Normal ROM Extremity: Normal ROM Neurological/Psych: Oriented x3, Normal Speech, Normal Cognition Gait: Steady ED Course And Treatment ECG: Interpreted By Me, Viewed By Me ECG Rhythm: Sinus Tachycardia ECG Interpretation: No Acute Changes Rate From EC O2 Sat by Pulse Oximetry: 97 Progress Note: Case was discussed w/ mortar worker Maral, who states that Dr Marshall is aware of patient; there are no detox beds available. Patient made aware ; Pt will be discharged w/ a list of detox programs, and information for the detox co-ordinator/instructions for pre-screening process. Patient is agreeable with plan. All questions answered. Disposition Counseled Patient/Family Regarding: Diagnosis, Need For Followup - Disposition Disposition: HOME/ ROUTINE Disposition Time: 16:31 Condition: STABLE Additional Instructions: Please follow up outpatiently as instructed by Crisis counselor Return to ER if worse Instructions: Alcohol Dependence (ED) - Clinical Impression Clinical Impression: Alcohol abuse - Scribe Statement The provider has reviewed the documentation as recorded by the Scribe Shae Apodaca All medical record entries made by the Scribe were at my direction and personally dictated by me. I have reviewed the chart and agree that the record accurately reflects my personal performance of the history, physical exam, medical decision making, and the department course for this patient. I have also personally directed, reviewed, and agree with the discharge instructions and disposition.
== END 2016-09-14 16:52 | disposition home or self-care (01) ==
LOC: C.ER 15:15
DX: F10.10 Alcohol abuse, uncomplicated (principal); Y90.9 Presence of alcohol in blood, level not specified

== ENCOUNTER 2016-09-21 15:26 | Emergency (ER) | payer MEDICAID ==
[2016-09-21 15:27] VITALS: BMI 34.7
[2016-09-21 15:32] VITALS: O2SAT 97
--- NOTE | 2016-09-21 15:54 | C.PDOC ---
History Of Present Illness 41 year old patient presents to the ED requesting detox from alcohol. Patient admits his last drink was yesterday. Patient has been trying to get a detox admission for several day, but still there are no detox beds available. Patient also complains of shakes, generalized myalgia, and nausea. REQUESTING ETOH DETOX. LAST DRINK YEST. PS HAS BEEN TRYING FOR SEV DAYS FOR DETOX ADMISSION BUT STILL NO DETOX BEDS. CO SHAKES, GEN MYALGIA, NAUSEA. EXAM MILD DIST NONTOXIC +TONGUE FASCIC +FINE TREMORS CV RRR TACHY NO S/S ACUTE INTOX. Time Seen by Provider: 09/21/16 15:45 Chief Complaint (Nursing): Substance Abuse History Per: Patient History/Exam Limitations: no limitations Onset/Duration Of Symptoms: Other Current Symptoms Are (Timing): Still Present Suicide/Self Injury Attempted (Context): None Modifying Factor(s): None Severity: None Pain Scale Rating Of: 0 Recent travel outside of the [place]: No Past Medical History Reviewed: Historical Data, Nursing Documentation, Vital Signs Vital Signs: Last Vital Signs Temp 97.9 F 09/21/16 17:05 Pulse 83 09/21/16 17:05 Resp 17 09/21/16 17:05 BP 126/81 09/21/16 17:05 Pulse Ox 97 09/21/16 17:07 - Medical History PMH: Anxiety, Arthritis, Asthma (WAS TAKING MEDS FOR SAME BUT REFUSED IT FOR NOW ), Back Problems (lumbar spine injury), Bipolar Disorder, COPD, Depression, Paranoia - [facility] Procedures DETOXIFICATION SERVICES FOR SUBSTANCE ABUSE TREATMENT (08/29/16) GROUP OUTSOLE CUTTER MACHINE FOR SUBSTANCE ABUSE TREATMENT, PSYCHOEDUCATION (06/26/16) GROUP PSYCHOTHERAPY (08/29/16) INDIV PSYCHOTHERAPY FOR SUBSTANCE ABUSE TREATMENT, SUPPORT (07/11/16) INDIVIDUAL PSYCHOTHERAPY, SUPPORTIVE (08/29/16) INJECT/INFUSE NEC (10/10/14) MEDICATION MANAGEMENT (08/29/16) NEBULIZER THERAPY (02/16/14) Family History: States: Unknown Family Hx - Social History Hx Tobacco Use: Yes (light smoker) Hx Alcohol Use: Yes Hx Substance Use: Yes - Immunization History Hx Tetanus Toxoid Vaccination: Yes Hx Influenza Vaccination: Yes Hx Pneumococcal Vaccination: Yes Review Of Systems Except As Marked, All Systems Reviewed And Found Negative. Constitutional: Positive for: Malaise (generalized), Other (shakes) Gastrointestinal: Positive for: Nausea. Negative for: Vomiting, Abdominal Pain Physical Exam - Physical Exam Appears: Non-toxic, Other (mild distress, no signs and symptoms) Skin: Warm, Dry Head: Atraumatic, Normacephalic Eye(s): bilateral: Normal Inspection Ear(s): Bilateral: Normal Nose: Normal Oral Mucosa: Moist Tongue: Other (tongue fasciculations) Throat: Normal Neck: Normal ROM, Supple Chest: Symmetrical Cardiovascular: Rhythm Regular (tachycardic) Respiratory: Normal Breath Sounds, No Rales, No Rhonchi, No Wheezing Neurological/Psych: Other (fine tremors) Gait: Steady ED Course And Treatment O2 Sat by Pulse Oximetry: 97 (room air) Pulse Ox Interpretation: Normal Reevaluation Time: 17:07 Reassessment Condition: Improved Progress - Data Reviewed Data Reviewed: Old records Disposition Counseled Patient/Family Regarding: Diagnosis, Need For Followup - Disposition Referrals: ESTEFANY,DETOX [Other] Disposition: HOME/ ROUTINE Disposition Time: 17:07 Condition: IMPROVED Instructions: Abuse of Alcohol (ED) - Clinical Impression Clinical Impression: Alcohol abuse - Scribe Statement The provider has reviewed the documentation as recorded by the Scribe Candy Sewell Provider Attestation: All medical record entries made by the Scribe were at my direction and personally dictated by me. I have reviewed the chart and agree that the record accurately reflects my personal performance of the history, physical exam, medical decision making, and the department course for this patient. I have also personally directed, reviewed, and agree with the discharge instructions and disposition.
[2016-09-21 17:06] VITALS: BP 126/81; PULSE 83; RESP 17; TEMP 97.9
== END 2016-09-21 17:15 | disposition home or self-care (01) ==
LOC: C.ER 15:26
DX: F10.10 Alcohol abuse, uncomplicated (principal); Y90.9 Presence of alcohol in blood, level not specified
CPT/HCPCS: 96372; 99284; J1885

== ENCOUNTER 2016-09-28 21:44 | Inpatient (IN) | payer MEDICAID ==
[2016-09-28 21:45] VITALS: BMI 34.7
[2016-09-28 22:02] VITALS: O2SAT 98
--- NOTE | 2016-09-28 22:15 | C.PDOC ---
History Of Present Illness Pt was transferred here from [facility] for psychiatric admission. He was medically cleared at the referring facility. Time Seen by Provider: 09/28/16 22:11 Chief Complaint (Nursing): Psychiatric Evaluation History Per: Patient Onset/Duration Of Symptoms: Days Current Symptoms Are (Timing): Still Present Severity: Moderate Associated Symptoms: Anxiety, Depression Additional History Per: Prior Records Past Medical History Reviewed: Historical Data, Nursing Documentation, Vital Signs Vital Signs: Last Vital Signs Temp 97.9 F 09/28/16 21:55 Pulse 91 H 09/28/16 21:55 Resp 16 09/28/16 21:55 BP 129/88 09/28/16 21:55 Pulse Ox 98 09/28/16 21:55 - Medical History PMH: Anxiety, Arthritis, Asthma, Back Problems (lumbar spine injury), Bipolar Disorder, COPD, Depression, Paranoia - [facility] Procedures DETOXIFICATION SERVICES FOR SUBSTANCE ABUSE TREATMENT (08/29/16) GROUP AIRLINE STATION AGENT FOR SUBSTANCE ABUSE TREATMENT, PSYCHOEDUCATION (06/26/16) GROUP PSYCHOTHERAPY (08/29/16) INDIV PSYCHOTHERAPY FOR SUBSTANCE ABUSE TREATMENT, SUPPORT (07/11/16) INDIVIDUAL PSYCHOTHERAPY, SUPPORTIVE (08/29/16) INJECT/INFUSE NEC (10/10/14) MEDICATION MANAGEMENT (08/29/16) NEBULIZER THERAPY (02/16/14) Family History: States: Unknown Family Hx - Social History Hx Tobacco Use: Yes (light smoker) Hx Alcohol Use: Yes Hx Substance Use: No - Immunization History Hx Tetanus Toxoid Vaccination: Yes Hx Influenza Vaccination: Yes Hx Pneumococcal Vaccination: Yes Review Of Systems Constitutional: Negative for: Fever Respiratory: Negative for: Hemoptysis Gastrointestinal: Negative for: Vomiting Musculoskeletal: Negative for: Neck Pain Skin: Negative for: Rash Neurological: Negative for: Weakness, Seizures Physical Exam - Physical Exam Appears: Non-toxic, No Acute Distress Skin: Normal Color, Warm, Dry, No Rash Head: Atraumatic, Normacephalic Eye(s): bilateral: PERRL, EOMI Neck: Normal ROM, Supple Cardiovascular: Rhythm Regular Respiratory: Normal Breath Sounds, No Accessory Muscle Use Gastrointestinal/Abdominal: Soft Extremity: Normal ROM, No Deformity Neurological/Psych: Oriented x3, Normal Motor, Normal Sensation ED Course And Treatment O2 Sat by Pulse Oximetry: 98 Pulse Ox Interpretation: Normal Disposition - Disposition Disposition: HOSPITALIZED Disposition Time: 22:14 Condition: STABLE - Clinical Impression Clinical Impression: Depression Decision To Admit - Pt Status Changed To: Hospital Disposition Of: Inpatient - Admit Certification Admit to Inpatient:: After my assessment, the patient will require hospitalization for at least two midnights. This is because of the severity of symptoms shown, intensity of services needed, and/or the medical risk in this patient being treated as an outpatient. - InPatient: Physician Admission Certification: I certify that this patient requires 2 or more midnights of care for the following reason:: Psych. - . Bed Request Type: Psychiatry Admitting Physician: Robert Viera Patient Diagnosis: Depression
[2016-09-28] MEDS ORDERED: Albuterol HFA 90 mcg/actuation (8 g) INH PRN (22:32)
--- NOTE | 2016-09-29 18:38 | PCM.PSYCH ---
Initial Psychiatric Evaluation - Initial Psychiatric Evaluation Type of Admission: Voluntary Legal Status: Capacity Chief Complaint (in patient's own words): I am depressed and was suicidal. History of Present Illness and Precipitating Events: Patient is a 41 years old single, employed, male, with history of depression and alcohol use was admitted because of depression and suicidal ideations. Patient reported that he is very depressed because of his stresses including his mother's breast cancer and for him stress of work. Reported noncompliant with treatment after discharge from the hospital. Patient reported he couldn't afford medications because of no insurance at that time. Reported now he has insurance. But reported that he cannot continue his treatment and also he cannot go to appointments because of his alcohol problem. Patient reported that he starts drinking when he starts feeling more depressed. No patient reported that he started feeling more depressed for last few days with decreased sleep but no change in appetite but he lost about 4 pounds in 1 month. Reported that 2 days ago he had suicidal ideations with plan to cut on his arm. Denied any previous suicidal attempts or any homicidal ideations. Reported he has history of cutting on his arms twice in the past not for suicidal but he wanted to feel pain. Reported he cut on his arm one month ago and he was admitted to [facility] after that. Also reported that he hears voices that sometimes last heard 2 days ago. Reported voices were telling him to jump in front of a bus. Denied any manic or anxiety symptoms. History of 3 previous admissions but no visit to any psychiatrist after discharge from the hospitals. Alcohol: Reported he started drinking alcohol 2 years ago. Started from half pint when increased gradually up to 2 pints daily. Lasting reported 2 days ago. Reported history of 2 previous detox at [facility] and no rehabs. Denied use of any other drugs including cocaine cannabis heroin. Denied smoking cigarette. Patient was born in [place], has high school graduation working, lives in shelters. Never and has no children. His height is 6 feet 1 inch and weight is 254 pounds. Current Medications: Active Medications Generic Name Dose Route Start Last Admin Trade Name Freq PRN Reason Stop Dose Admin Albuterol 1 puff 09/28/16 22:32 Ventolin Hfa 90 Mcg/Actuation (8 G) INH RQ6 PRN Shortness of Breath Benztropine Mesylate 0.5 mg 09/29/16 18:30 Cogentin PO BID TOREY Escitalopram Oxalate 10 mg 09/30/16 10:00 Lexapro PO DAILY TOREY Haloperidol 5 mg 09/29/16 18:30 Haldol PO BID TOREY Lorazepam 1 mg 09/28/16 22:28 09/29/16 18:18 Ativan PO 1 mg Q6H PRN Administration Anxiety Trazodone HCl 100 mg 09/28/16 22:30 09/28/16 23:15 Desyrel PO 100 mg HS TOREY Administration Past Psychiatric History - Past Psychiatric History Previous Treatment History: Inpatient Prior Professional Help: Inpatient detox, inpatient admissions At [facility]: [facility] History of Abuse: None reported History of ETOH/Drug Use: See HPI History of Family Illness: None reported Pertinent Medical Hx (Current Medical&Sleep Prob, Allergies): Allergies Allergy/AdvReac Type Severity Reaction Status Date / Time shellfish derived Allergy RASH Verified 09/28/16 13:03 Ventolin HFA 90 mcg/actuation (8 g) 90 mcg INH PRN PRN 09/21/16 COPD Review of Systems - Psychiatric Psychiatric: Depression Mental Status Examination - Personal Presentation Personal Presentation: Looks stated age - Affect Affect: Depressed - Motor Activity Motor Activity: Calm - Reliability in Providing Information Reliability in Providing Information: Fair - Speech Speech: Organized - Mood Mood: Depressed - Formal Thought Process Formal Thought Process: No Impairment - Hallucinations/Delusions Hallucinations: Other (None reported) Delusions: Other - Obsessions/Compulsions Obsessions: None Compulsions: None - Cognitive Functions Orientation: Person, Place, Situation, Time Sensorium: Alert Attention/Concentration: Attentive Abstract Thinking: [place] Estimate of Intelligence: Average Judgement: Intact, as evidence by: Insight regarding need for hospitalization Memory: Recent intact, as evidence by: 3/3 object recall, Remote intact, as evidenced by: Ability to recall historical events - Risk Risk: Diminished functioning - Strength & Assets Inventory Strength & Assets Inventory: Employment status, Cooperative - Limitations Limitations: Other DSM 5 DX - DSM 5 DSM 5 Diagnosis: Major depressive disorder recurrent severe with psychotic features Alcohol use disorder Alcohol withdrawal - Recommended/Plan of Treatment Treatment Recommendations and Plan of Treatment: Patient education Supportive therapy Start Lexapro 10 mg daily Haloperidol 5 mg twice a day Cogentin 0.5 mg twice a day Ativan 1 mg by mouth every 6 hours when necessary for alcohol withdrawal symptoms. Currently patient has no withdrawal symptoms. Gabapentin 300 mg 3 times a day Projected ELOS: 8-10 days - Smoking Cessation Smoking Cessation Initiated: No Reason for not providing: Patient doesn't smoke cigarettes
--- NOTE | 2016-09-30 15:21 | PCM.PYCHPN ---
Psychiatric Progress Note - Psychiatric Progress Note Patient seen today, length of contact: 16min Patient Chief Complaint: "I'm doing alright." Problems Identified/Issues Discussed: The pt is seen, chart reviewed, case discussed with staff. The patient states that he is doing alright except for some withdrawal symptoms. He also says that he's been living in [place] with a friend but is otherwise homeless. He is willing to go to the [facility]. The pt is compliant with medications and reports no side-effects. Symptoms are improving but needs more time to stabilize. After care discussed, support and psychoeducation given Medication Change: Yes (marely villalpando) Medical Record Reviewed: Yes Mental Status Examination - Cognitive Function Orientation: Person, Place, Situation, Time Memory: Intact Attention: WNL Concentration: WNL Association: WNL Fund of Knowledge: WNL - Mood Mood: Depressed - Affect Affect: Depressed - Speech Speech: Appropriate - Formal Thought Process Formal Thought Process: No Impairment - Suicidal Ideation Suicidal Ideation: No - Homicidal Ideation Homicidal Ideation: No Goal/Treatment Plan - Goal/Treatment Plan Need for Continued Stay: Discharge may exacerbated symptoms, Severe functional impairment Progress Toward Problem(s) and Goals/Treatment Plan: Continue medications but some of the unnecessary ones are discontinued. he agreed Support and psychoeducation daily Attend groups and activities daily After care planning by DESHAUN Estimated Date of D/C: 10/02/16
--- NOTE | 2016-10-01 14:47 | PCM.PYCHPN ---
Psychiatric Progress Note - Psychiatric Progress Note Patient seen today, length of contact: 16min Patient Chief Complaint: "I'm doing alright." Problems Identified/Issues Discussed: The pt is seen, chart reviewed, case discussed with staff. The patient states that he is still a little shaky but has no other complaints. Mood is down at times, nervous about [employer] app[employer] The pt is compliant with medications and reports no side-effects. Symptoms are improving but needs more time to stabilize. After care discussed, support and psychoeducation given Medication Change: No Medical Record Reviewed: Yes Mental Status Examination - Cognitive Function Orientation: Person, Place, Situation, Time Memory: Intact Attention: WNL Concentration: WNL Association: WNL Fund of Knowledge: WNL - Mood Mood: Depressed - Affect Affect: Depressed - Speech Speech: Appropriate - Formal Thought Process Formal Thought Process: No Impairment - Suicidal Ideation Suicidal Ideation: No - Homicidal Ideation Homicidal Ideation: No Goal/Treatment Plan - Goal/Treatment Plan Need for Continued Stay: Discharge may exacerbated symptoms, Severe functional impairment Progress Toward Problem(s) and Goals/Treatment Plan: Continue medications but some of the unnecessary ones are discontinued. he agreed Support and psychoeducation daily Attend groups and activities daily After care planning by [employer] isamar faxed to [facility] in EDD Estimated Date of D/C: 10/02/16
--- NOTE | 2016-10-02 12:35 | PCM.PYCHPN ---
Psychiatric Progress Note - Psychiatric Progress Note Patient seen today, length of contact: 16min Patient Chief Complaint: "I'm fine." Problems Identified/Issues Discussed: The pt is seen, chart reviewed, case discussed with staff. The patient states that he is doing fine and has no complaints. He states that he is planning to go to the [facility] [employer] [facility]. The pt is compliant with medications and reports no side-effects. Symptoms are improving but needs more time to stabilize. After care discussed, support and psychoeducation given. Medication Change: No Medical Record Reviewed: Yes Mental Status Examination - Cognitive Function Orientation: Person, Place, Situation, Time Memory: Intact Attention: WNL Concentration: WNL Association: WNL Fund of Knowledge: WNL - Mood Mood: Depressed - Affect Affect: Depressed - Speech Speech: Appropriate - Formal Thought Process Formal Thought Process: No Impairment - Suicidal Ideation Suicidal Ideation: No - Homicidal Ideation Homicidal Ideation: No Goal/Treatment Plan - Goal/Treatment Plan Need for Continued Stay: Discharge may exacerbated symptoms, Severe functional impairment Progress Toward Problem(s) and Goals/Treatment Plan: Continue medications but some of the unnecessary ones are discontinued. he agreed Support and psychoeducation daily Attend groups and activities daily After care planning by [employer] isamar faxed to [facility] in EDD Estimated Date of D/C: 10/02/16
[2016-10-03 07:27] VITALS: BP 118/77; PULSE 78; RESP 19; TEMP 97.5
--- NOTE | 2016-10-03 08:51 | PCM.PYCHDC ---
Mental Status Examination - Mental Status Examination Orientation: Person, Place, Situation, Time Memory: Intact Mood: Neutral Affect: Broad Speech: Appropriate Attention: WNL Concentration: WNL Association: WNL Fund of Knowledge: WNL Formal Thought Process: No Impairment Suicidal Ideation: No Current Homicidal Ideation?: No Plan: Continue below medications after discharge. Follow after care plan as discussed. Use relapse prevention skills Return to ER or call 911 if suicidal, homicidal or symptoms relapse. Stay away from stress, alcohol and drugs. See primary doctor once a year. Discharge Summary - Discharge Note Reason for Hospitalization: Depression, SI Laboratory Data: Abnormal Lab Results 10/02/16 16:44 HIV 1&2 Antibody Screen Negative Consultations:: List each consultation separately and include: 1. Reason for request. 2. Findings. 3. Follow-up Summary of Hospital Course include:: 1. Description of specific treatment plan utilized for patients during their course of treatmen. 2. Summarize the time- course for resolution of acute symptoms and/or regressed behaviors. 3. Describe issues identified and worked on during hospitalization. 4. Describe medication utilized. 5. Describe medical problems identified and treated. 6. Reassessment of suicide risk Summary of Hospital Course: The pt was admitted and started on treatment with psychotherapy, support, psychoeducation and medications. NH and CBT used. The pt attended groups and activities, as well as milieu therapy. All the risks and benefits of medications are discussed and the patient understood and agreed. After care discussed with the patient and he will [facility]. - Final Diagnosis (DSM 5) Condition upon Discharge: GOOD DSM 5: Major depressive disorder recurrent severe with psychotic features Alcohol use disorder Alcohol withdrawal Disposition: HOME/ ROUTINE Follow-up Treatment Plan: Continue medications but some of the unnecessary ones are discontinued. He agreed Attend [facility], which takes adults too Continue below medications after discharge. Use relapse prevention skills Return to ER or call 911 if suicidal, homicidal or symptoms relapse. Stay away from stress, alcohol and drugs. Prescriptions/Medication Reconciliation: Albuterol HFA [Ventolin HFA 90 mcg/actuation (8 g)] 1 puff INH RQ6 PRN #1 inhaler PRN Reason: Shortness Of Breath Escitalopram [Lexapro] 10 mg PO DAILY #30 tab Gabapentin [Neurontin] 300 mg PO TID #90 cap traZODone [Desyrel] 100 mg PO HS #30 tab - Smoking Cessation Smoking Cessation Medication prescribed: No - Antipsychotic Medications Pt discharged on 2 or more routine antipsychotic medications: No
== END 2016-10-03 12:10 | disposition home or self-care (01) | DRG 430 ==
LOC: C.ER 21:44 → C.5E 22:15
PROC: GZ3ZZZZ Medication Management (ICD-10-PCS; principal; 2016-09-28)
PROC: GZHZZZZ Group Psychotherapy (ICD-10-PCS; 2016-09-28)
PROC: GZ56ZZZ Individual Psychotherapy, Supportive (ICD-10-PCS; 2016-09-28)
DX: F33.3 Major depressive disorder, recurrent, severe with psychotic symptoms (principal); R45.851 Suicidal ideations; F10.282 Alcohol dependence with alcohol-induced sleep disorder; J44.9 Chronic obstructive pulmonary disease, unspecified; J45.909 Unspecified asthma, uncomplicated; R06.02 Shortness of breath; Z87.891 Personal history of nicotine dependence

== ENCOUNTER 2017-02-18 16:13 | Emergency (ER) | payer MEDICAID ==
[2017-02-18 16:13] VITALS: BMI 33.0
[2017-02-18 16:22] VITALS: TEMP 98.1
[2017-02-18] MEDS ORDERED: Multivitamin (MVI) 10 ML, Thiamine 100 MG, Folic Acid 1 MG in Sodium Chloride 0.9% 1,00... IV ONE (16:49)
[2017-02-18 17:08] LABS: BASO # 0.1 K/uL (0.0-0.2); EOS # 0.1 K/uL (0.0-0.7); EOS % 0.6 % (0.0-4.0); HEMATOCRIT 42.9 % (35.0-51.0); LYMPH # 2.4 K/uL (1.0-4.3); LYMPH % 23.1 % (20.0-40.0); MEAN CELL VOLUME 90.9 fL (80.0-94.0); MEAN CORPUSCULAR HEMOGLOBIN 31.5 pg (27.0-31.0); MEAN CORPUSCULAR HGB CONC 34.7 g/dL (33.0-37.0); MEAN PLATELET VOLUME 7.4 fL (7.2-11.7); MONO # 0.7 K/uL (0.0-0.8); MONO % 6.9 % (0.0-10.0); NRBC % 0.1 % (0.0-2.0); RED CELL DISTRIBUTION WIDTH 13.3 % (11.5-14.5); WHITE BLOOD COUNT 10.3 K/uL (4.8-10.8)
[2017-02-18 17:23] LABS: CHLORIDE 100 mmol/L (98-107)
[2017-02-18 17:24] LABS: POTASSIUM 3.6 mmol/L (3.6-5.2); SODIUM 135 mmol/L (132-148)
--- NOTE | 2017-02-18 17:24 | C.PDOC ---
History Of Present Illness 41 y/o male with Hx of ETOH abuse presents to ED requesting detox from ETOH. Patient states last time he consumed ETOH was 3 days ago and reports he feel tremulous. Patient is a regular ED visitor [address] Patient denies HX of DTs, headache, fever, hallucinations or any other complaints at this time. Time Seen by Provider: 02/18/17 16:42 Chief Complaint (Nursing): Psychiatric Evaluation History Per: Patient History/Exam Limitations: no limitations Onset/Duration Of Symptoms: Days Current Symptoms Are (Timing): Still Present Suicide/Self Injury Attempted (Context): None Modifying Factor(s): Alcohol Past Medical History Reviewed: Historical Data, Nursing Documentation, Vital Signs Vital Signs: Last Vital Signs Temp 98.1 F 02/18/17 16:21 Pulse 131 H 02/18/17 16:21 Resp 18 02/18/17 16:21 BP 127/83 02/18/17 16:21 Pulse Ox 94 L 02/18/17 18:39 - Medical History PMH: Anxiety, Arthritis, Asthma, Back Problems, Bipolar Disorder, COPD, Depression, HTN, Paranoia Surgical History: No Surg Hx - [facility] Procedures DETOXIFICATION SERVICES FOR SUBSTANCE ABUSE TREATMENT (08/29/16) GROUP REINFORCING STEEL PLACER FOR SUBSTANCE ABUSE TREATMENT, PSYCHOEDUCATION (06/26/16) GROUP PSYCHOTHERAPY (01/24/17) INDIV PSYCHOTHERAPY FOR SUBSTANCE ABUSE TREATMENT, SUPPORT (07/11/16) INDIVIDUAL PSYCHOTHERAPY, COGNITIVE-BEHAVIORAL (01/24/17) INDIVIDUAL PSYCHOTHERAPY, SUPPORTIVE (09/28/16) INJECT/INFUSE NEC (10/10/14) MEDICATION MANAGEMENT (09/28/16) NEBULIZER THERAPY (02/16/14) Family History: States: No Known Family Hx - Social History Hx Tobacco Use: Yes (light smoker) Hx Alcohol Use: Yes Hx Substance Use: No - Immunization History Hx Tetanus Toxoid Vaccination: Yes Hx Influenza Vaccination: Yes Hx Pneumococcal Vaccination: Yes Review Of Systems Constitutional: Negative for: Fever, Chills Cardiovascular: Negative for: Chest Pain Respiratory: Negative for: Shortness of Breath Gastrointestinal: Negative for: Nausea, Vomiting Skin: Negative for: Rash Neurological: Negative for: Weakness, Numbness, Headache Psych: Negative for: Suicidal ideation Physical Exam - Physical Exam Appears: Non-toxic Skin: Warm, Dry, No Rash Head: Atraumatic, Normacephalic Eye(s): bilateral: Normal Inspection Oral Mucosa: Moist Neck: Normal ROM, Supple Chest: Symmetrical Cardiovascular: Rhythm Regular Respiratory: Normal Breath Sounds, No Rales, No Rhonchi, No Wheezing Gastrointestinal/Abdominal: Soft, No Tenderness, No Guarding, No Rebound Extremity: Capillary Refill (<2 seconds), No Deformity, Other (Tremulous hands bilaterally) Pulses: Left Radial: Normal, Right Radial: Normal Neurological/Psych: Oriented x3, Normal Motor, Normal Sensation ED Course And Treatment - Laboratory Results Result Diagrams: 02/18/17 17:03 02/18/17 17:03 O2 Sat by Pulse Oximetry: 94 (RA) Pulse Ox Interpretation: Normal Medical Decision Making Medical Decision Making: Patient given Ativan and Iv fluids Disposition Counseled Patient/Family Regarding: Diagnosis, Need For Followup - Disposition Disposition: HOME/ ROUTINE Disposition Time: 18:20 Condition: GUARDED Additional Instructions: Follow up with Detox. You can go to other locations. You can call [facility] at [phone] Instructions: Abuse of Alcohol (ED) Forms: [facility] (Micronesian), General Discharge Instructions - POA Present On Arrival: None - Clinical Impression Clinical Impression: Alcohol abuse - Scribe Statement The provider has reviewed the documentation as recorded by the Kennaibcarter Barber All medical record entries made by the Kennaibcarter were at my direction and personally dictated by me. I have reviewed the chart and agree that the record accurately reflects my personal performance of the history, physical exam, medical decision making, and the department course for this patient. I have also personally directed, reviewed, and agree with the discharge instructions and disposition.
[2017-02-18 17:26] LABS: ALB/GLOB RATIO 1.3 (1.0-2.1); ALKALINE PHOSPHATASE 52 U/L (38-126); ALT/SGPT 40 U/L (21-72); AST/SGOT 26 U/L (17-59); BILIRUBIN,TOTAL 0.8 mg/dL (0.2-1.3); BLOOD UREA NITROGEN 13 mg/dL (9-20); CARBON DIOXIDE 25 mmol/L (22-30); GFR AFRICAN-AMERICAN > 60; GLUCOSE,RANDOM 124 mg/dL (75-110); TOTAL PROTEIN 7.5 g/dL (6.3-8.3)
[2017-02-18 17:27] LABS: ALCOHOL SERUM < 10 mg/dl (0-10); CALCIUM 9.3 mg/dl (8.6-10.4)
[2017-02-18 20:57] VITALS: BP 124/70; PULSE 94; RESP 20; O2SAT 97
--- NOTE | 2017-02-20 12:26 | CARD ---
APPROVED REPORT EKG Measurement Heart [id number] <Conclusion> Sinus tachycardia Otherwise normal ECG
== END 2017-02-18 20:57 | disposition home or self-care (01) ==
LOC: C.ER 16:13
DX: F10.10 Alcohol abuse, uncomplicated (principal); Y90.9 Presence of alcohol in blood, level not specified
CPT/HCPCS: 80053; 80320; 80329; 85025; 93005; 96365; 96366; 96375; 96376; 99284; J2060; J3411; J7040

== ENCOUNTER 2017-03-13 15:30 | Emergency (ER) | payer MEDICAID ==
[2017-03-13 15:31] VITALS: BMI 33.0
[2017-03-13 15:37] VITALS: RESP 18
--- NOTE | 2017-03-13 16:18 | C.PDOC ---
History Of Present Illness 41 year old male with Hx of ETOH abuse presents to the ED requesting ETOH detox , he states being a daily drinker felt nauseous, anxious, and shaky this morning. Patient denies any CP, SOB, vomit, diarrhea. Time Seen by Provider: 03/13/17 15:44 Chief Complaint (Nursing): Substance Abuse History Per: Patient History/Exam Limitations: no limitations Onset/Duration Of Symptoms: Hrs Current Symptoms Are (Timing): Still Present Suicide/Self Injury Attempted (Context): None Modifying Factor(s): Alcohol Associated Symptoms: Anxiety. denies: Suicidal Thoughts, Suicidal Plan Recent travel outside of the [place]: No Additional History Per: Patient Past Medical History Reviewed: Historical Data, Nursing Documentation, Vital Signs Vital Signs: Last Vital Signs Temp 97.7 F 03/13/17 16:55 Pulse 103 H 03/13/17 16:55 Resp 18 03/13/17 16:55 BP 135/84 03/13/17 16:55 Pulse Ox 96 03/13/17 16:55 - Medical History PMH: Anxiety, Arthritis, Asthma, Back Problems, Bipolar Disorder, COPD, Depression, HTN, Paranoia, Schizophrenia Denies: Diabetes, Hepatitis, HIV, Chronic Kidney Disease, Seizures, Sexually Transmitted Disease Surgical History: No Surg Hx - [facility] Procedures DETOXIFICATION SERVICES FOR SUBSTANCE ABUSE TREATMENT (08/29/16) GROUP EXPLOSIVES DETONATOR FOR SUBSTANCE ABUSE TREATMENT, PSYCHOEDUCATION (06/26/16) GROUP PSYCHOTHERAPY (03/06/17) INDIV PSYCHOTHERAPY FOR SUBSTANCE ABUSE TREATMENT, SUPPORT (07/11/16) INDIVIDUAL PSYCHOTHERAPY, COGNITIVE-BEHAVIORAL (01/24/17) INDIVIDUAL PSYCHOTHERAPY, SUPPORTIVE (09/28/16) INJECT/INFUSE NEC (10/10/14) MEDICATION MANAGEMENT (09/28/16) NEBULIZER THERAPY (02/16/14) Family History: States: Unknown Family Hx - Social History Hx Tobacco Use: Yes (light smoker) Hx Alcohol Use: Yes Hx Substance Use: No - Immunization History Hx Tetanus Toxoid Vaccination: No Hx Influenza Vaccination: Yes Hx Pneumococcal Vaccination: Yes Review Of Systems Except As Marked, All Systems Reviewed And Found Negative. Gastrointestinal: Positive for: Nausea Neurological: Positive for: Other (Very mild tremors to upper extremities ) Physical Exam - Physical Exam Appears: Other (Mildly uncomfortable) Skin: Normal Color, Warm, Dry Head: Atraumatic, Normacephalic Oral Mucosa: Moist Chest: Symmetrical Cardiovascular: Rhythm Regular (Mildly tachycardia) Respiratory: Normal Breath Sounds, No Accessory Muscle Use, No Rales, No Rhonchi , No Wheezing Gastrointestinal/Abdominal: Soft, No Tenderness Extremity: Other (Very mild tremors to upper extremities) Neurological/Psych: Oriented x3, Normal Speech, Normal Cognition ED Course And Treatment ECG Rhythm: Sinus Tachycardia ECG Interpretation: No Acute Changes Interpretation Of ECG: Normal axis, no acute ST-T chnages Rate From EC O2 Sat by Pulse Oximetry: 97 (On RA) Pulse Ox Interpretation: Normal Progress Note: Plan: -EKG done. -Librium 50 mg PO, and Zofran 4 mg PO administered. Spoke with crisis counselor regarding the patient, there are not detox beds available at the moment. After medications will repeat vitals to see if there is an improvement. Disposition Counseled Patient/Family Regarding: Diagnosis, Need For Followup - Disposition Referrals: [facility] [Outside] Disposition: HOME/ ROUTINE Disposition Time: 16:30 Condition: STABLE Instructions: Alcohol Dependence (ED) Forms: [employer] [facility] (Mohawk) Print Language: SOUTH AFRICAN - Clinical Impression Clinical Impression: Alcohol dependence - Scribe Statement The provider has reviewed the documentation as recorded by the Scribe Doug Whiteside All medical record entries made by the Scribe were at my direction and personally dictated by me. I have reviewed the chart and agree that the record accurately reflects my personal performance of the history, physical exam, medical decision making, and the department course for this patient. I have also personally directed, reviewed, and agree with the discharge instructions and disposition.
[2017-03-13 16:56] VITALS: BP 135/84; PULSE 103; TEMP 97.7
[2017-03-13 17:10] VITALS: O2SAT 97
--- NOTE | 2017-03-17 12:35 | CARD ---
APPROVED REPORT EKG Measurement Heart [id number] <Conclusion> Sinus tachycardia Otherwise normal ECG
== END 2017-03-13 17:05 | disposition home or self-care (01) ==
LOC: C.ER 15:30
DX: F10.20 Alcohol dependence, uncomplicated (principal); Y90.9 Presence of alcohol in blood, level not specified

== ENCOUNTER 2017-04-23 16:51 | Inpatient (IN) | payer MEDICAID ==
[2017-04-23 16:52] VITALS: BMI 33.0
[2017-04-23] MEDS ORDERED: Lactated Ringer's 1,000 ML IVB STA (17:59)
[2017-04-23] MEDS ORDERED: Lactated Ringer's 1,000 ML ONE (18:12)
[2017-04-23 18:18] LABS: BASO # 0.1 K/uL (0.0-0.2); BASO % 1.2 % (0.0-2.0); EOS # 0.3 K/uL (0.0-0.7); EOS % 3.4 % (0.0-4.0); LYMPH # 2.7 K/uL (1.0-4.3); LYMPH % 27.1 % (20.0-40.0); MEAN CELL VOLUME 91.9 fL (80.0-94.0); MEAN CORPUSCULAR HEMOGLOBIN 31.9 pg (27.0-31.0); MEAN CORPUSCULAR HGB CONC 34.8 g/dL (33.0-37.0); MEAN PLATELET VOLUME 7.2 fL (7.2-11.7); MONO # 0.7 K/uL (0.0-0.8); MONO % 7.1 % (0.0-10.0); NRBC % 0.1 % (0.0-2.0); RED CELL DISTRIBUTION WIDTH 13.5 % (11.5-14.5); WHITE BLOOD COUNT 9.9 K/uL (4.8-10.8)
[2017-04-23 18:34] LABS: ALB/GLOB RATIO 1.7 (1.0-2.1); ALCOHOL SERUM 222 mg/dl (0-10); ALKALINE PHOSPHATASE 40 U/L (38-126); ALT/SGPT 18 U/L (21-72); AST/SGOT 18 U/L (17-59); BILIRUBIN,TOTAL 0.8 mg/dL (0.2-1.3); BLOOD UREA NITROGEN 11 mg/dL (9-20); CALCIUM 8.4 mg/dl (8.6-10.4); CARBON DIOXIDE 26 mmol/L (22-30); CHLORIDE 103 mmol/L (98-107); GFR AFRICAN-AMERICAN > 60; GLUCOSE,RANDOM 90 mg/dL (75-110); POTASSIUM 3.5 mmol/L (3.6-5.2); SODIUM 139 mmol/L (132-148); TOTAL PROTEIN 6.4 g/dL (6.3-8.3)
[2017-04-23 18:48] LABS: RBC URINE < 1 /hpf (0-3); URINE BILIRUBIN NEGATIVE (NEGATIVE); URINE BLOOD NEGATIVE (NEGATIVE); URINE COLOR Yellow (YELLOW); URINE GLUCOSE (UA) NORMAL (Normal); URINE KETONE NEGATIVE (NEGATIVE); URINE LEUKOCYTE ESTERASE NEG Leu/uL (Negative); URINE PROTEIN NEGATIVE (NEGATIVE); URINE UROBILINOGEN NORMAL mg/dL (0.2-1.0); WBC URINE 1 /hpf (0-5)
--- NOTE | 2017-04-23 19:31 | C.PDOC ---
Time Seen by Provider: 04/23/17 17:08 Chief Complaint (Nursing): Psychiatric Evaluation History Per: Patient History/Exam Limitations: intoxication Onset/Duration Of Symptoms: Days Current Symptoms Are (Timing): Still Present Suicide/Self Injury Attempted (Context): None Modifying Factor(s): Alcohol Severity: Moderate Associated Symptoms: Suicidal Thoughts Additional History Per: Prior Records Past Medical History Reviewed: Historical Data, Nursing Documentation, Vital Signs Vital Signs: Last Vital Signs Temp 97.5 F L 04/23/17 16:53 Pulse 125 H 04/23/17 16:53 Resp 20 04/23/17 16:53 BP 146/94 H 04/23/17 16:53 Pulse Ox 96 04/23/17 19:32 - Medical History PMH: Anxiety, Arthritis, Asthma, Back Problems, Bipolar Disorder, COPD, Depression, HTN, Pancreatitis, Paranoia, Schizophrenia - [facility] Procedures DETOXIFICATION SERVICES FOR SUBSTANCE ABUSE TREATMENT (08/29/16) GROUP SIGNAL TOWER OPERATOR FOR SUBSTANCE ABUSE TREATMENT, PSYCHOEDUCATION (06/26/16) GROUP PSYCHOTHERAPY (03/06/17) INDIV PSYCHOTHERAPY FOR SUBSTANCE ABUSE TREATMENT, SUPPORT (07/11/16) INDIVIDUAL PSYCHOTHERAPY, COGNITIVE-BEHAVIORAL (01/24/17) INDIVIDUAL PSYCHOTHERAPY, SUPPORTIVE (09/28/16) INJECT/INFUSE NEC (10/10/14) MEDICATION MANAGEMENT (09/28/16) NEBULIZER THERAPY (02/16/14) Family History: States: Unknown Family Hx - Social History Hx Tobacco Use: Yes (light smoker) Hx Alcohol Use: Yes Hx Substance Use: No - Immunization History Hx Tetanus Toxoid Vaccination: No Hx Influenza Vaccination: Yes Hx Pneumococcal Vaccination: Yes Review Of Systems Constitutional: Negative for: Fever Gastrointestinal: Positive for: Abdominal Pain Musculoskeletal: Negative for: Neck Pain Skin: Negative for: Rash Neurological: Negative for: Weakness, Numbness Psych: Positive for: Psychosis Physical Exam - Physical Exam Appears: Non-toxic, No Acute Distress, Other (AOB) Skin: Normal Color, Warm, Dry, No Rash Head: Atraumatic, Normacephalic Eye(s): bilateral: Normal Inspection, PERRL, EOMI Neck: Normal ROM, No Midline Cervical Tenderness, No Step Off Deformity, Supple Cardiovascular: Rhythm Regular Respiratory: Normal Breath Sounds, No Accessory Muscle Use Gastrointestinal/Abdominal: Soft, Tenderness (mild nonspecific), No Guarding, No Rebound Back: No CVA Tenderness, No Vertebral Tenderness, Other (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 Disposition Counseled Patient/Family Regarding: Studies Performed, Diagnosis - Disposition Disposition: HOSPITALIZED Disposition Time: 21:01 Condition: STABLE - Clinical Impression Clinical Impression: Bipolar disorder, Alcohol abuse Decision To Admit - Pt Status Changed To: Hospital Disposition Of: Inpatient - Admit Certification Admit to Inpatient:: After my assessment, the patient will require hospitalization for at least two midnights. This is because of the severity of symptoms shown, intensity of services needed, and/or the medical risk in this patient being treated as an outpatient. - InPatient: Physician Admission Certification: I certify that this patient requires 2 or more midnights of care for the following reason:: Psych - . Bed Request Type: Psychiatry Admitting Physician: Cammy Lowe Patient Diagnosis: Bipolar disorder, Alcohol abuse
--- NOTE | 2017-04-23 22:11 | PCM.BM ---
<Efren Gee - Last Filed: 04/23/17 22:08> Treatment Plan Problems - Problems identified on initial assessmt Depression Date Initiated: 04/23/17 Time Initiated: 22:09 Assessment reference: NA Suicidal Ideations Date Initiated: 04/23/17 Time Initiated: 22:09 Assessment reference: NA Treatment assets and liabiliti Patient Assests: cooperative, self-reliant, ADL independent, physically healthy , negotiates basic needs Patient Liabilities: live alone (Stays at [facility]), substance abuse (Alcohol), medical problems (Asthma, COPD) - Milieu Protocol Maintain good personal hygiene: daily Encourage regular showers, every shift Remind patient to perform daily oral care, every shift Assist patient to perform ADL's Conduct patient checks and document Observation sheet: Q15 minutes (For safety) Maintain personal safety: every shift Educate patient to report safety concerns to staff, every shift Monitor environment for contraband/sharps Medication safety: Monitor for expected outcome, potential side effects: every shift, Assess barriers to learning: every shift, Assess readiness for medication education: every shift <Cammy Lowe - Last Filed: 04/24/17 10:41> - Diagnosis (1) Bipolar disorder Status: Acute Interventions: 04/24/17 10:41 * Assess/adjust medications daily and /or as needed * See patient on an individual basis 7x/week to assess level of manic behaviors and stability * Discuss risks, benefits, side effects and alternatives of medications * (2) Alcohol dependence Status: Acute Interventions: 04/24/17 10:41 * Assess 7x/week regarding severity of withdrawal * Educate regarding risks, benefits, side effects and alternatives of medications * Use Motivational Interviewing for abstinence * Use CBT for relapse prevention * Medication management for withdrawal symptoms * Encourage medication assisted treatment * <Tonya Higuera - Last Filed: 04/24/17 11:08> Family Contact Family involvement: Family/SO is involved Family contact: Patient declines to allow family contact at present - Goals for Treatment Patient goals for treatment: "I want to go to rehab." Discharge/Continuing Care - Education Needs Education Needs: Patient Medication, Patient Coping Skills - Discharge Discharge Criteria: Tolerates medication w/o severe side effects, Free of Suicidal thoughts, Reduction of target symptoms Discharge to:: Substance Abuse Rehab - Treatment Team Participation Discussed with Family/SO: No Was Patient/Family/SO present at Treatment Team Meeting: Yes
[2017-04-23] MEDS ORDERED: Albuterol HFA 90 mcg/actuation (8 g) INH PRN (22:59)
[2017-04-24] MEDS: Multiple Vitamins Tab PO SCH (09:34)
[2017-04-24] MEDS ORDERED: RANITIDINE HCL 75 MG PO SCH (10:00)
--- NOTE | 2017-04-24 10:33 | PCM.PSYCH ---
Initial Psychiatric Evaluation - Initial Psychiatric Evaluation Type of Admission: Voluntary Legal Status: Capacity Chief Complaint (in patient's own words): i was feeling depressed and suicidal.' History of Present Illness and Precipitating Events: Pt is a 42 y/o CM, who is currently unemployed and homeless, came to the ED, with depressed mood and suicidal ideation with plan of throwing himself in front of a car or train. Patient is well known to the brief writer. Patient has been admitted to the [facility] multiple times in the past. patient was just discharged from [facility] a month ago. As per the patient he stopped taking his medications and relapsed on drinking. Patient reports of drinking 2-3 pints on a daily basis. As per the ED notes, 'patient reported that he drink alcohol daily, and wants to drink until he is . As per patient his mother is dying of cancer.' Patient reported that he attempted suicide 1 or 2 months ago by planning to threw himself in front of a car. Patient reported that he have suicidal attempts in the past when he was younger by cutting his face and his wrist. Patient reports depressed mood, poor sleep and poor appetite. He reports feelings of hopelessness and helplessness. He also reports at times irritability , and agitation. He reports auditory hallucinations but denies any visual hallucinations or delusions. He reports withdrawal symptoms from drinking including shakes, tremors, sweating and headaches. Past medical history HTN Current Medications: Active Medications Generic Name Dose Route Start Last Admin Trade Name Freq PRN Reason Stop Dose Admin Albuterol 1 puff 04/23/17 22:59 Ventolin Hfa 90 Mcg/Actuation (8 G) INH RQ6 PRN Cough Aripiprazole 5 mg 04/24/17 10:00 04/24/17 09:34 Abilify PO 5 mg DAILY TOREY Administration Chlordiazepoxide 25 mg 04/23/17 23:06 Librium PO Q4H PRN Alcohol Withdrawal Chlordiazepoxide 25 mg 04/24/17 00:00 04/24/17 06:33 Librium PO 04/28/17 23:59 25 mg Q6 TOREY Administration Taper Clonidine HCl 0.1 mg 04/23/17 23:06 Catapres PO Q4H PRN Symptoms of alcohol withdrawl Famotidine 20 mg 04/24/17 10:00 04/24/17 09:34 Pepcid PO 20 mg BID TOREY Administration Folic Acid 1 mg 04/24/17 10:00 04/24/17 09:34 Folic Acid PO 1 mg DAILY TOREY Administration Gabapentin 100 mg 04/24/17 10:00 04/24/17 09:34 Neurontin PO 100 mg TID TOREY Administration Multivitamins 1 tab 04/24/17 10:00 04/24/17 09:34 Hexavitamin PO 1 tab DAILY TOREY Administration Pneumococcal Polyvalent Vaccine 0.5 ml 04/25/17 10:00 Pneumovax 23 Vaccine IM 04/25/17 10:01 .ONCE ONE Thiamine HCl 100 mg 04/24/17 10:00 04/24/17 09:34 Vitamin B1 Tab PO 100 mg DAILY TOREY Administration Trazodone HCl 50 mg 04/23/17 23:06 Desyrel PO HS PRN Insomnia Past Psychiatric History - Past Psychiatric History Previous Treatment History: Inpatient Pertinent Medical Hx (Current Medical&Sleep Prob, Allergies): Allergies Allergy/AdvReac Type Severity Reaction Status Date / Time shellfish derived Allergy ANAPHYLAXIS Verified 04/23/17 16:59 ARIPiprazole [Abilify] 10 mg PO DAILY 30 Days #30 tab 03/12/17 Gabapentin [Neurontin] 200 mg PO TID 30 Days #90 cap 03/12/17 Albuterol HFA [Ventolin HFA 90 mcg/actuation (8 g)] 1 puff INH Q6 PRN 03/15/17 Folic Acid 1 mg PO DAILY #30 tab 03/18/17 LORazepam [Ativan] 1 mg PO Q12 #4 tab 03/18/17 Thiamine [Vitamin B1 Tab] 100 mg PO DAILY #30 tab 03/18/17 Ranitidine HCl [Zantac 75] 75 mg PO BID #10 tablet 03/20/17 Famotidine [Pepcid] 20 mg PO BID #20 tab 04/03/17 Review of Systems - Review of Systems All systems: reviewed and no additional remarkable complaints except - Psychiatric Psychiatric: Anxiety, Auditory Hallucinations, Irritability, Mood Swings, Suicidal Ideation Mental Status Examination - Personal Presentation Personal Presentation: Looks stated age - Affect Affect: Constricted, Depressed - Motor Activity Motor Activity: Calm - Reliability in Providing Information Reliability in Providing Information: Fair - Speech Speech: Organized - Mood Mood: Depressed, Anxious - Formal Thought Process Formal Thought Process: No Impairment - Hallucinations/Delusions Hallucinations: Auditory - Obsessions/Compulsions Obsessions: No Compulsions: No - Cognitive Functions Orientation: Person, Place, Situation, Time Sensorium: Alert Attention/Concentration: Attentive Abstract Thinking: [place] Estimate of Intelligence: Below average Judgement: Imparied, as evidence by: Poor judgement, Imparied, as evidence by: Lack of insight into illness - Risk Risk: Suicidal, Withdrawal, Diminished functioning - Limitations Limitations: Living alone DSM 5 DX - DSM 5 DSM 5 Diagnosis: Bipolar disorder depressed severe with psychotic features Alcohol use disorder severe Alcohol withdrawal - Recommended/Plan of Treatment Treatment Recommendations and Plan of Treatment: Bipolar disorder depressed severe with psychotic features CBT Psychoeducation Supportive therapy, group therapy, individual therapy Neurontin 100 mg PO TID Depakote 250 mg by mouth twice a day Trazodone 50 mg by mouth daily at bedtime Alcohol use disorder severe CBT Psychoeducation Supportive therapy, individual therapy Use [place] for abstinence Librium when necessary Librium taper Start folic acid/thiamine/multivitamin - Smoking Cessation Smoking Cessation Initiated: No
--- NOTE | 2017-04-24 18:33 | CARD ---
APPROVED REPORT EKG Measurement Heart [id number] <Conclusion> Normal sinus rhythm Normal ECG
[2017-04-25] MEDS: Multiple Vitamins Tab PO SCH (09:01)
[2017-04-25] MEDS ORDERED: Influenza Vaccine 60 mcg/0.5 mL SYR (4YR UP) IM ONE (10:00)
[2017-04-25] MEDS ORDERED: Pneumococcal 23-Valent Vaccine IM ONE (10:00)
--- NOTE | 2017-04-25 15:49 | PCM.PYCHPN ---
Psychiatric Progress Note - Psychiatric Progress Note Patient seen today, length of contact: 15 minutes Patient Chief Complaint: "I'm feeling better" Problems Identified/Issues Discussed: Patient is admitted for etoh Detoxification and bipolar disorder patient reported that he still have depressive symptoms including passive suicidal ideation. However he denied any suicidal intent or plan. He reported improvement and focus and anhedonia. He still reported difficulty in sleep. He stated that he is hearing voices, which are telling him that he is going to . He needed a more time for stabilization on medications. DSM 5 Symptoms Update: Bipolar disorder depressed severe with psychotic features Medication Change: Yes (Increase Abilify to 10 mg orally daily) Medical Record Reviewed: Yes Mental Status Examination - Cognitive Function Orientation: Person, Place, Situation, Time Memory: Intact Attention: WNL Concentration: WNL Association: WNL Fund of Knowledge: [facility] Decription of patient's judgement and insights: limited/fair - Mood Mood: Depressed, Anxious - Affect Affect: Constricted, Depressed - Speech Speech: Appropriate - Formal Thought Process Formal Thought Process: Hallucinations Psychotic Thoughts and Behaviors: Patient is calm and cooperative Additional comments: Calm and cooperative - Suicidal Ideation Suicidal Ideation: Yes Plan: Patient have passive suicidal ideation. He denied intent and plan. - Homicidal Ideation Homicidal Ideation: No Goal/Treatment Plan - Goal/Treatment Plan Need for Continued Stay: Discharge may exacerbated symptoms, Severe functional impairment Progress Toward Problem(s) and Goals/Treatment Plan: Continue current medication as a prior primary care team except increase Abilify 10 mg orally daily CBT Psychoeducation Supportive therapy, group therapy, individual therapy Neurontin 100 mg PO TID Trazodone 50 mg by mouth daily at bedtime Alcohol use disorder severe CBT Psychoeducation Supportive therapy, individual therapy Use [place] for abstinence Librium when necessary Librium taper Start folic acid/thiamine/multivitamin Estimated Date of D/C: 04/29/17 - Smoking Cessation Smoking Cessation Initiated: Yes
[2017-04-26] MEDS: Multiple Vitamins Tab PO SCH (09:06)
--- NOTE | 2017-04-26 12:27 | PCM.PYCHPN ---
Psychiatric Progress Note - Psychiatric Progress Note Patient seen today, length of contact: 15 minutes Patient Chief Complaint: "I'm depressed" Problems Identified/Issues Discussed: The pt is seen, chart reviewed, case discussed with staff. The pt is compliant with medications and reports no side-effects. Symptoms are improving but needs more time to stabilize. After care discussed, support and psychoeducation given. He als c/o not getting an AD when he is depressed. Lexapro started Medication Change: Yes (jorge) Medical Record Reviewed: Yes Mental Status Examination - Cognitive Function Orientation: Person, Place, Situation, Time Memory: Intact Attention: WNL Concentration: WNL Association: WN Fund of Knowledge: WNL - Mood Mood: Depressed, Anxious - Affect Affect: Constricted, Depressed - Speech Speech: Appropriate - Formal Thought Process Formal Thought Process: No Impairment - Suicidal Ideation Suicidal Ideation: No - Homicidal Ideation Homicidal Ideation: No Goal/Treatment Plan - Goal/Treatment Plan Need for Continued Stay: Discharge may exacerbated symptoms, Severe functional impairment Progress Toward Problem(s) and Goals/Treatment Plan: Continue medications Support and psychoeducation daily Attend groups and activities daily After care planning by DESHAUN. He doesn't [facility] Estimated Date of D/C: 04/29/17
[2017-04-27] MEDS: Multiple Vitamins Tab PO SCH (09:08)
--- NOTE | 2017-04-27 19:19 | PCM.PYCHPN ---
Psychiatric Progress Note - Psychiatric Progress Note Patient seen today, length of contact: 15 minutes Patient Chief Complaint: "I'm doing better" Problems Identified/Issues Discussed: Pt was seen and chart reviewed. Nurse input received. No issues overnight. Patient is admitted for etoh Detoxification and bipolar disorder patient reported that he still have depressive symptoms including passive suicidal ideation. However he denied any suicidal intent or plan. He reported improvement and focus and anhedonia. He still reported difficulty in sleep. He stated that he is hearing voices, which are telling him that he is going to . He needed a more time for stabilization on medications. Medication Change: No Medical Record Reviewed: Yes Mental Status Examination - Cognitive Function Orientation: Person, Place, Situation, Time Memory: Intact Attention: WNL Concentration: WNL Association: WNL Fund of Knowledge: [facility] Decription of patient's judgement and insights: fair/fair Addtional comments: calm and cooperative - Mood Mood: Depressed, Anxious - Affect Affect: Constricted, Depressed - Speech Speech: Appropriate - Formal Thought Process Formal Thought Process: No Impairment - Suicidal Ideation Suicidal Ideation: No Plan: denied - Homicidal Ideation Homicidal Ideation: No Plan: denied Goal/Treatment Plan - Goal/Treatment Plan Need for Continued Stay: Discharge may exacerbated symptoms, Severe functional impairment Progress Toward Problem(s) and Goals/Treatment Plan: Continue current medication as a prior primary care team CBT Psychoeducation Supportive therapy, group therapy, individual therapy Neurontin 100 mg PO TID Trazodone 50 mg by mouth daily at bedtime Alcohol use disorder severe CBT Psychoeducation Supportive therapy, individual therapy Use [place] for abstinence Librium when necessary Librium taper folic acid/thiamine/multivitamin Estimated Date of D/C: 04/29/17 - Smoking Cessation Smoking Cessation Initiated: No
[2017-04-28 06:08] VITALS: O2SAT 95
[2017-04-28] MEDS: Multiple Vitamins Tab PO SCH (09:12)
--- NOTE | 2017-04-28 11:28 | PCM.PYCHPN ---
Psychiatric Progress Note - Psychiatric Progress Note Patient seen today, length of contact: 15 minutes Patient Chief Complaint: I am feeling much better.' Problems Identified/Issues Discussed: P t seen and evaluated, chart reviewed and discussed with the staff. He reports improvement in his mood and improvement in the feelings of hopelessness and helplessness. Patient also reports improvement in the withdrawal symptoms. Patient is compliant with medications and denies any side effects. Symptoms are improving but need more time to stabilize. Support and psychoeducation given. Medication Change: No Medical Record Reviewed: Yes Mental Status Examination - Cognitive Function Orientation: Person, Place, Situation, Time Memory: Intact Attention: WNL Concentration: WNL Association: WN Fund of Knowledge: WNL - Mood Mood: Depressed, Anxious - Affect Affect: Constricted, Depressed - Speech Speech: Appropriate - Formal Thought Process Formal Thought Process: No Impairment - Suicidal Ideation Suicidal Ideation: No - Homicidal Ideation Homicidal Ideation: No Goal/Treatment Plan - Goal/Treatment Plan Need for Continued Stay: Discharge may exacerbated symptoms, Severe functional impairment Progress Toward Problem(s) and Goals/Treatment Plan: Bipolar disorder depressed severe with psychotic features CBT Psychoeducation Supportive therapy, group therapy, individual therapy Neurontin 100 mg PO TID Depakote 250 mg by mouth twice a day Trazodone 50 mg by mouth daily at bedtime Alcohol use disorder severe CBT Psychoeducation Supportive therapy, individual therapy Use [place] for abstinence Librium when necessary Librium taper Start folic acid/thiamine/multivitamin Estimated Date of D/C: 04/29/17 - Smoking Cessation Smoking Cessation Initiated: No
[2017-04-29 06:38] VITALS: BP 121/80; PULSE 72; RESP 18; TEMP 97.5
[2017-04-29] MEDS: Multiple Vitamins Tab PO SCH (10:10)
--- NOTE | 2017-04-29 10:46 | PCM.PYCHDC ---
Mental Status Examination - Mental Status Examination Orientation: Person, Place, Situation, Time Memory: Intact Mood: Neutral Affect: Constricted Speech: Soft Attention: WNL Concentration: WNL Association: WNL Fund of Knowledge: WNL Formal Thought Process: No Impairment Description of patient's judgement and insight: good, fair Psychotic Thoughts and Behaviors: denies any AVH Suicidal Ideation: No Current Homicidal Ideation?: No Discharge Summary - Discharge Note Reason for Hospitalization: Pt is a 42 y/o CM, who is currently unemployed and homeless, came to the ED, with depressed mood and suicidal ideation with plan of throwing himself in front of a car or train. Patient is well known to the freelance copywriter. Patient has been admitted to the [facility] multiple times in the past. patient was just discharged from [facility] a month ago. As per the patient he stopped taking his medications and relapsed on drinking. Patient reports of drinking 2-3 pints on a daily basis. As per the ED notes, 'patient reported that he drink alcohol daily, and wants to drink until he is . As per patient his mother is dying of cancer.' Patient reported that he attempted suicide 1 or 2 months ago by planning to threw himself in front of a car. Patient reported that he have suicidal attempts in the past when he was younger by cutting his face and his wrist. Patient reports depressed mood, poor sleep and poor appetite. He reports feelings of hopelessness and helplessness. He also reports at times irritability , and agitation. He reports auditory hallucinations but denies any visual hallucinations or delusions. He reports withdrawal symptoms from drinking including shakes, tremors, sweating and headaches. Consultations:: List each consultation separately and include: 1. Reason for request. 2. Findings. 3. Follow-up Summary of Hospital Course include:: 1. Description of specific treatment plan utilized for patients during their course of treatmen. 2. Summarize the time- course for resolution of acute symptoms and/or regressed behaviors. 3. Describe issues identified and worked on during hospitalization. 4. Describe medication utilized. 5. Describe medical problems identified and treated. 6. Reassessment of suicide risk Summary of Hospital Course: During the course of his stay, patient (pt) started progressively improving and he no longer remained irritable, depressed, and suicidal. His mood and anxiety symptoms were improved and he started attending groups and meetings and started socializing. Patient denied any feelings of hopelessness, helplessness, and worthlessness, denied any problem with the sleep or appetite, denied suicidal ideation or homicidal ideation. Pt denied any auditory or visual hallucinations. Some changes were made in his current medications and patient was discharged on following medications. He tolerated these medications very well and denied any side effects. Pt is to attend partial care program at [facility] in [place]. - Diagnosis (1) Bipolar disorder Status: Acute (2) Alcohol dependence Status: Acute - Final Diagnosis (DSM 5) Condition upon Discharge: STABLE DSM 5: Bipolar disorder depressed severe with psychotic features Alcohol use disorder severe Disposition: HOME/ ROUTINE Follow-up Treatment Plan: Education: Pt was educated and counseled about the risks and benefits of taking and not taking medications. Pt was educated and counseled about the risks of drinking and abusing drugs. Pt was educated and counseled to go to the ER or call 911 if pt develop suicidal ideation or homicidal ideation, worsening of symptoms or severe side effects of the meds. Prescriptions/Medication Reconciliation: ARIPiprazole [Abilify] 10 mg PO DAILY 30 Days #30 tab Escitalopram [Lexapro] 10 mg PO DAILY #30 tab QUEtiapine [Seroquel] 100 mg PO HS #30 tab - Smoking Cessation Smoking Cessation Medication prescribed: No - Antipsychotic Medications Pt discharged on 2 or more routine antipsychotic medications: No
== END 2017-04-29 11:35 | disposition home or self-care (01) | DRG 430 ==
LOC: C.ER 16:51 → C.9E 21:02 → C.5E 21:46 → UNDODISIN 04-25 10:45
PROVIDERS: ADMIT Psychiatry & Neurology Psychiatry; ATTEND Psychiatry & Neurology Psychiatry
PROC: GZ3ZZZZ Medication Management (ICD-10-PCS; principal; 2017-04-23)
PROC: HZ2ZZZZ Detoxification Services for Substance Abuse Treatment (ICD-10-PCS; 2017-04-23)
PROC: GZHZZZZ Group Psychotherapy (ICD-10-PCS; 2017-04-23)
PROC: GZ56ZZZ Individual Psychotherapy, Supportive (ICD-10-PCS; 2017-04-23)
PROC: HZ59ZZZ Individual Psychotherapy for Substance Abuse Treatment, Supportive (ICD-10-PCS; 2017-04-23)
DX: F31.5 Bipolar disorder, current episode depressed, severe, with psychotic features (principal); R45.851 Suicidal ideations; F10.239 Alcohol dependence with withdrawal, unspecified; J44.9 Chronic obstructive pulmonary disease, unspecified; I10 Essential (primary) hypertension; Y90.7 Blood alcohol level of 200-239 mg/100 ml; M19.90 Unspecified osteoarthritis, unspecified site; Z91.5 Personal history of self-harm; Z79.899 Other long term (current) drug therapy; Z59.0 Homelessness

== ENCOUNTER 2017-06-22 04:15 | Inpatient (IN) | payer MEDICAID ==
[2017-06-22 04:16] VITALS: BMI 33.0
--- NOTE | 2017-06-22 04:32 | C.PDOC ---
History Of Present Illness Pt was transferred from [place] ED for psych admission. Pt was medically cleared at the referring facility. Time Seen by Provider: 06/22/17 04:25 Chief Complaint (Nursing): Psychiatric Evaluation History Per: Patient, Other (Transfer papers) Onset/Duration Of Symptoms: Days Current Symptoms Are (Timing): Still Present Severity: Moderate Associated Symptoms: Depression Additional History Per: Prior Records Past Medical History Reviewed: Historical Data, Nursing Documentation, Vital Signs Vital Signs: Last Vital Signs Temp 97.6 F 06/22/17 04:25 Pulse 83 06/22/17 04:25 Resp 20 06/22/17 04:25 BP 135/88 06/22/17 04:25 Pulse Ox 96 06/22/17 04:25 - Medical History PMH: Anxiety, Arthritis, Asthma, Back Problems, Bipolar Disorder, COPD, Depression, Pancreatitis, Paranoia, Schizophrenia - [facility] Procedures DETOXIFICATION SERVICES FOR SUBSTANCE ABUSE TREATMENT (04/23/17) GROUP PROJECT MANAGER PROCESS DEVELOPMENT FOR SUBSTANCE ABUSE TREATMENT, PSYCHOEDUCATION (06/26/16) GROUP PSYCHOTHERAPY (05/12/17) INDIV PSYCHOTHERAPY FOR SUBSTANCE ABUSE TREATMENT, SUPPORT (04/23/17) INDIVIDUAL PSYCHOTHERAPY, COGNITIVE-BEHAVIORAL (01/24/17) INDIVIDUAL PSYCHOTHERAPY, SUPPORTIVE (05/12/17) INJECT/INFUSE NEC (10/10/14) MEDICATION MANAGEMENT (04/23/17) NEBULIZER THERAPY (02/16/14) Family History: States: Unknown Family Hx - Social History Hx Tobacco Use: Yes (light smoker) Hx Alcohol Use: Yes Hx Substance Use: Yes - Immunization History Hx Tetanus Toxoid Vaccination: No Hx Influenza Vaccination: Yes Hx Pneumococcal Vaccination: Yes Review Of Systems Constitutional: Negative for: Fever Cardiovascular: Negative for: Chest Pain Respiratory: Negative for: Shortness of Breath Musculoskeletal: Positive for: Back Pain Neurological: Negative for: Weakness, Numbness Physical Exam - Physical Exam Appears: Non-toxic, No Acute Distress Skin: Normal Color, Warm, Dry Head: Atraumatic Eye(s): bilateral: PERRL, EOMI Neck: Normal ROM, Supple Cardiovascular: Rhythm Regular Respiratory: Normal Breath Sounds, No Accessory Muscle Use Gastrointestinal/Abdominal: Soft Extremity: Normal ROM Neurological/Psych: Oriented x3, Normal Motor, Normal Sensation ED Course And Treatment O2 Sat by Pulse Oximetry: 96 Pulse Ox Interpretation: Normal Disposition - Disposition Disposition: HOSPITALIZED Disposition Time: 04:31 Condition: STABLE - Clinical Impression Clinical Impression: Depression Decision To Admit - Pt Status Changed To: Hospital Disposition Of: Inpatient - Admit Certification Admit to Inpatient:: After my assessment, the patient will require hospitalization for at least two midnights. This is because of the severity of symptoms shown, intensity of services needed, and/or the medical risk in this patient being treated as an outpatient. - InPatient: Physician Admission Certification: I certify that this patient requires 2 or more midnights of care for the following reason:: Psych - . Bed Request Type: Psychiatry Admitting Physician: Carly Garcia Patient Diagnosis: Depression
--- NOTE | 2017-06-22 05:18 | PCM.BM ---
<DesPam reynaga - Last Filed: 06/22/17 05:17> Treatment Plan Problems - Problems identified on initial assessmt Suicidal Ideation Date Initiated: 06/22/17 Time Initiated: 04:50 Assessment reference: NA Status: Active Depression Date Initiated: 06/22/17 Time Initiated: 04:50 Assessment reference: NA Status: Active Auditory Hallucinations Date Initiated: 06/22/17 Time Initiated: 04:50 Assessment reference: NA Status: Active Treatment assets and liabiliti Patient Assests: cooperative, self-reliant, ADL independent, negotiates basic needs Patient Liabilities: physical pain, financial problems, poor support system, substance abuse, medical problems - Milieu Protocol Maintain good personal hygiene: daily Encourage regular showers, daily Remind patient to perform daily oral care, daily Assist patient to perform ADL's Conduct patient checks and document Observation sheet: Q15 minutes Maintain personal safety: every shift Educate patient to report safety concerns to staff, every shift Monitor environment for contraband/sharps Medication safety: Monitor for expected outcome, potential side effects: every shift, Assess barriers to learning: every shift, Assess readiness for medication education: every shift <Filippo Marshall - Last Filed: 06/23/17 19:27> - Diagnosis (1) Depression Status: Acute Interventions: 06/23/17 19:27 * Assess/adjust medications daily and /or as needed * See patient on an individual basis 7x/week to assess symptoms of depression * Monitor for side effects & effectiveness of medications * (2) Alcohol dependence Status: Acute Interventions: 06/23/17 19:27 * Assess 7x/week regarding severity of withdrawal * Educate regarding risks, benefits, side effects and alternatives of medications * Use Motivational Interviewing for abstinence * Use CBT for relapse prevention * Medication management for withdrawal symptoms * Encourage medication assisted treatment * <Tonya Higuera - Last Filed: 06/24/17 10:37> Family Contact Family involvement: Family/SO is involved Family contact: Patient declines to allow family contact at present - Goals for Treatment Patient goals for treatment: "I want to go to a rehab near my mom's house." Discharge/Continuing Care - Education Needs Education Needs: Patient Medication, Patient Coping Skills - Discharge Discharge Criteria: Tolerates medication w/o severe side effects, Free of Suicidal thoughts, Reduction of target symptoms Discharge to:: Substance Abuse Rehab - Treatment Team Participation Discussed with Family/SO: No Was Patient/Family/SO present at Treatment Team Meeting: Yes
--- NOTE | 2017-06-22 09:38 | PCM.PSYCH ---
Initial Psychiatric Evaluation - Initial Psychiatric Evaluation Type of Admission: Voluntary Legal Status: Capacity Chief Complaint (in patient's own words): Im very, very depressed and overwhelmed. History of Present Illness and Precipitating Events: Patient is a 42 year old male. He is single, lives at a half-way in [place] on/off for 4 years, unemployed (previously worked at the [employer] in [place]). Patient states he is very depressed, he cant sleep, he feels very overwhelmed and was thinking of killing himself before he came to the hospital. States he previously considered SI last fall, without a plan. Patient states he recently became significantly depressed after his mom got even sicker than she already was (has cancer) and required a blood transfusion. He denies heroin use, and states he is drinking significantly less but admits his last drink was yesterday. He says he hears voices that are definitely not his own telling him to hurt himself. Denies the voices tell him to hurt others. He denies visual hallucinations, says he sometimes sees shadows. Patient appears disheveled with flat affect. Absent: tremors, diaphoresis, psychomotor agitation. Denies current SI. He remained depressed, isolated and withdrawn. Alcohol: drinks 1 pint of vodka daily. Cigarettes: 2 packs per week Drugs: denies Rehab: 1x. TP last year Detox: twice. Most recently, Jan 2016. PsychHx: drug-induced psychosis, heroin use. Current Medications: Active Medications Generic Name Dose Route Start Last Admin Trade Name Freq PRN Reason Stop Dose Admin Chlordiazepoxide 25 mg 06/22/17 08:00 Librium PO 06/26/17 07:59 Q6 PRN alcohol withdrawal Taper Escitalopram Oxalate 10 mg 06/22/17 10:00 Lexapro PO DAILY TOREY Folic Acid 1 mg 06/22/17 10:00 Folic Acid PO DAILY TOREY Hydroxyzine HCl 25 mg 06/22/17 08:00 Atarax PO TID PRN Anxiety Multivitamins 1 tab 06/22/17 10:00 Hexavitamin PO DAILY TOREY Thiamine HCl 100 mg 06/22/17 10:00 Vitamin B1 Tab PO DAILY TOREY Past Psychiatric History - Past Psychiatric History Previous Treatment History: Inpatient Pertinent Medical Hx (Current Medical&Sleep Prob, Allergies): Allergies Allergy/AdvReac Type Severity Reaction Status Date / Time shellfish derived Allergy ANAPHYLAXIS Verified 06/21/17 15:25 Clindamycin [Cleocin] 300 mg PO Q8@0600,1400,2200 #21 cap 05/19/17 Escitalopram [Lexapro] 10 mg PO DAILY #30 tab 05/19/17 Folic Acid 1 mg PO DAILY tab 05/19/17 Lactobacillus Acidophilus [Bacid Acidophilus] 1 cap PO BID #14 cap 05/19/17 Nicotine [Nicotine Patch] 14 mg TD DAILY #30 patch.td24 05/19/17 Thiamine [Vitamin B1 Tab] 100 mg PO DAILY tab 05/19/17 risperiDONE [RisperDAL Tab] 3 mg PO HS #30 tab 05/19/17 traZODone [Desyrel] 50 mg PO HS #30 tab 05/19/17 Methylprednisolone [Medrol Dose Pack (21 tabs)] 4 mg PO DAILY #21 tab 06/19/17 Review of Systems - Review of Systems All systems: reviewed and no additional remarkable complaints except - Neurological Neurological: UNREMARKABLE - Psychiatric Psychiatric: Depression, Hallucinations, Suicidal Ideation (Denies current SI) Mental Status Examination - Personal Presentation Personal Presentation: Looks stated age - Affect Affect: Constricted, Depressed - Motor Activity Motor Activity: Calm - Reliability in Providing Information Reliability in Providing Information: Good - Speech Speech: Disorganized - Mood Mood: Depressed, Anxious - Formal Thought Process Formal Thought Process: Hallucinations, Delusions, Paranoia - Hallucinations/Delusions Hallucinations: Auditory - Obsessions/Compulsions Obsessions: No Compulsions: No - Cognitive Functions Orientation: Person, Place, Situation, Time Sensorium: Alert Attention/Concentration: Attentive Abstract Thinking: [place] Estimate of Intelligence: Below average Judgement: Imparied, as evidence by: Poor judgement, Imparied, as evidence by: Lack of insight into illness Memory: Recent intact, as evidence by: Ability to recall events of the day, Remote intact, as evidenced by: Abilit to recall sig. life events - Risk Risk: Suicidal, Diminished functioning - Limitations Limitations: Living alone (homeless) DSM 5 DX - DSM 5 DSM 5 Diagnosis: Bipolar disorder depressed severe with psychotic features r/o Schizoaffective disorder depressive type Alcohol use disorder severe Alcohol withdrawal - Recommended/Plan of Treatment Treatment Recommendations and Plan of Treatment: Bipolar disorder depressed severe with psychotic features r/o Schizoaffective disorder depressive type Alcohol use disorder severe Alcohol withdrawal Attend groups and activities Individual therapy daily Psychoeducation and support daily Encourage compliance with meds and after care Refer to outpatient program Teach healthy lifestyle methods, i.e. diet, exercise, meditation Smoking cessation and patch Lexapro 10 mg PO daily Librium taper Atarax Folic acid/thiamine/multivitamin Neurntin Risperdal - Smoking Cessation Smoking Cessation Initiated: Yes
[2017-06-22] MEDS: Multiple Vitamins Tab PO SCH (10:49)
[2017-06-23] MEDS: Multiple Vitamins Tab PO SCH (09:56)
--- NOTE | 2017-06-23 12:53 | PCM.PYCHPN ---
Psychiatric Progress Note - Psychiatric Progress Note Patient seen today, length of contact: 18 min Patient Chief Complaint: "I'm fine" Problems Identified/Issues Discussed: He is seen, chart reviewed and case discussed He acknowledges that he has not been drinking "much" lately and that he doesn't need the detox - stopped. Mood is better but he claims he is depressed and sometimes hears voices. He has been going form hospital to hospital again He is advised to focus on getting into a rehab - and he agreed No SI/HI Medication Change: Yes (meds adjusted) Medical Record Reviewed: Yes Mental Status Examination - Cognitive Function Orientation: Person, Place, Situation, Time Memory: Intact Attention: WNL Concentration: Poor Association: WNL Fund of Knowledge: WNL - Mood Mood: Depressed, Anxious - Affect Affect: Constricted, Depressed - Speech Speech: Appropriate - Formal Thought Process Formal Thought Process: Hallucinations - Suicidal Ideation Suicidal Ideation: No - Homicidal Ideation Homicidal Ideation: No Goal/Treatment Plan - Goal/Treatment Plan Need for Continued Stay: Discharge may exacerbated symptoms, Severe functional impairment Progress Toward Problem(s) and Goals/Treatment Plan: Continue meds Attend groups and activities Indiv tx [place] and CBT Refer to rehab
[2017-06-24 06:03] VITALS: O2SAT 97
[2017-06-24] MEDS: Multiple Vitamins Tab PO SCH (10:45)
--- NOTE | 2017-06-24 11:16 | PCM.PYCHPN ---
Psychiatric Progress Note - Psychiatric Progress Note Patient seen today, length of contact: 15 min Patient Chief Complaint: "I'm nervous" Problems Identified/Issues Discussed: The pt is seen, chart reviewed, case discussed with staff. Support given, CBT and NE used briefly No new symptoms reported, improving slowly and needs more time No SEs from medications, risks discussed. After care discussed - wants rehab but still restricts it to [facility] b/ c it is close to his mother (??) Salesperson [employer] reminded him that he really must be more more flexible, given how hard to get into a rehab is. Medication Change: Yes (meds adjusted) Medical Record Reviewed: Yes Mental Status Examination - Cognitive Function Orientation: Person, Place, Situation, Time Memory: Intact Attention: WNL Concentration: Poor Association: WNL Fund of Knowledge: WNL - Mood Mood: Depressed, Anxious - Affect Affect: Constricted, Depressed - Speech Speech: Appropriate - Formal Thought Process Formal Thought Process: Hallucinations - Suicidal Ideation Suicidal Ideation: No - Homicidal Ideation Homicidal Ideation: No Goal/Treatment Plan - Goal/Treatment Plan Need for Continued Stay: Discharge may exacerbated symptoms, Severe functional impairment Progress Toward Problem(s) and Goals/Treatment Plan: Continue meds Attend groups and activities Indiv tx [place] and CBT Refer to rehab
[2017-06-25] MEDS: Multiple Vitamins Tab PO SCH (10:06)
--- NOTE | 2017-06-25 11:18 | PCM.PYCHPN ---
Psychiatric Progress Note - Psychiatric Progress Note Patient seen today, length of contact: 15 min Patient Chief Complaint: "I'm a little bummed." Problems Identified/Issues Discussed: Patient was seen, chart reviewed and case discussed Mood is improved, but he claims he is depressed and sometimes hears voices. He has been going form hospital to hospital again. He is advised to focus on getting into a rehab - he agreed, but has been resistant to considering any location other than . Denies SI/HI He says he is disappointed today because he is having trouble getting into ; patient is adamant about only considering IH because his mother lives next door to and she has a terminal illness. Patient was reminded he will not be able to come and go from the facility, which makes location irrelevant and was encouraged to prioritize his health. Medication Change: Yes (meds adjusted) Medical Record Reviewed: Yes Mental Status Examination - Cognitive Function Orientation: Person, Place, Situation, Time Memory: Intact Attention: WNL Concentration: Poor Association: WNL Fund of Knowledge: WNL - Mood Mood: Depressed, Anxious - Affect Affect: Constricted, Depressed - Speech Speech: Appropriate - Formal Thought Process Formal Thought Process: Hallucinations - Suicidal Ideation Suicidal Ideation: No - Homicidal Ideation Homicidal Ideation: No Goal/Treatment Plan - Goal/Treatment Plan Need for Continued Stay: Discharge may exacerbated symptoms, Severe functional impairment Progress Toward Problem(s) and Goals/Treatment Plan: Continue meds Attend groups and activities Indiv tx [place] and CBT Refer to rehab SW will coordinate outpt rehab- patient has been resistant to considering any location other than . Reiterated again to patient that d/c cannot be extended to accomodate waiting for acceptance at and he should pursue alternative programs. Patient agreed.
[2017-06-26 06:33] VITALS: BP 107/76; PULSE 74; RESP 18; TEMP 97.4
--- NOTE | 2017-06-26 09:50 | PCM.PYCHDC ---
Mental Status Examination - Mental Status Examination Orientation: Person Discharge Summary - Discharge Note Consultations:: List each consultation separately and include: 1. Reason for request. 2. Findings. 3. Follow-up Summary of Hospital Course include:: 1. Description of specific treatment plan utilized for patients during their course of treatmen. 2. Summarize the time- course for resolution of acute symptoms and/or regressed behaviors. 3. Describe issues identified and worked on during hospitalization. 4. Describe medication utilized. 5. Describe medical problems identified and treated. 6. Reassessment of suicide risk - Diagnosis (1) Depression Current Visit: Yes Status: Acute (2) Alcohol dependence Current Visit: No Status: Acute - Final Diagnosis (DSM 5) Condition upon Discharge: STABLE Disposition: HOME/ ROUTINE Follow-up Treatment Plan: Continue meds Attend groups and activities Indiv tx [place] and CBT Refer to rehab SW will coordinate outpt rehab- patient has been resistant to considering any location other than . Reiterated again to patient that d/c cannot be extended to accomodate waiting for acceptance at and he should pursue alternative programs. Patient agreed.
[2017-06-26] MEDS: Multiple Vitamins Tab PO SCH (10:03)
== END 2017-06-26 10:54 | disposition home or self-care (01) | DRG 430 ==
LOC: C.ER 04:15 → C.5E 04:32
PROVIDERS: ADMIT Psychiatry & Neurology Psychiatry; ATTEND Psychiatry & Neurology Psychiatry
PROC: GZHZZZZ Group Psychotherapy (ICD-10-PCS; principal; 2017-06-22)
PROC: GZ58ZZZ Individual Psychotherapy, Cognitive-Behavioral (ICD-10-PCS; 2017-06-22)
PROC: GZ56ZZZ Individual Psychotherapy, Supportive (ICD-10-PCS; 2017-06-22)
DX: F31.5 Bipolar disorder, current episode depressed, severe, with psychotic features (principal); F10.239 Alcohol dependence with withdrawal, unspecified; J44.9 Chronic obstructive pulmonary disease, unspecified; F11.90 Opioid use, unspecified, uncomplicated; F17.210 Nicotine dependence, cigarettes, uncomplicated

== ENCOUNTER 2017-07-31 08:25 | Emergency (ER) | payer MEDICAID ==
[2017-07-31 08:26] VITALS: BMI 33.0
[2017-07-31 09:15] LABS: URINE BILIRUBIN NEGATIVE (NEGATIVE); URINE BLOOD NEGATIVE (NEGATIVE); URINE CLARITY Clear (Clear); URINE COLOR Yellow (YELLOW); URINE GLUCOSE (UA) NORMAL (Normal); URINE LEUKOCYTE ESTERASE NEG Leu/uL (Negative); URINE PROTEIN NEGATIVE (NEGATIVE); URINE UROBILINOGEN NORMAL mg/dL (0.2-1.0)
[2017-07-31] MEDS ORDERED: Belladonna-Phenobarbital PO STA (09:21)
[2017-07-31] MEDS ORDERED: Sodium Chloride 0.9% 1,000 ML IV ONE (09:21)
[2017-07-31] MEDS ORDERED: Aluminum Hydroxide/Magnesium Hydroxide Susp (30 mL) PO STA (09:21)
[2017-07-31] MEDS ORDERED: Sodium Chloride 0.9% 1,000 ML ONE (09:35)
[2017-07-31] MEDS ORDERED: Belladonna-Phenobarbital ONE (09:35)
[2017-07-31] MEDS ORDERED: Aluminum Hydroxide/Magnesium Hydroxide Susp (30 mL) ONE (09:35)
[2017-07-31 09:48] LABS: BASO # 0.1 K/uL (0.0-0.2); BASO % 1.2 % (0.0-2.0); EOS # 0.2 K/uL (0.0-0.7); EOS % 2.1 % (0.0-4.0); HEMOGLOBIN 15.6 g/dL (12.0-18.0); LYMPH # 1.8 K/uL (1.0-4.3); LYMPH % 21.6 % (20.0-40.0); MEAN CELL VOLUME 91.7 fL (80.0-94.0); MEAN CORPUSCULAR HEMOGLOBIN 31.3 pg (27.0-31.0); MEAN CORPUSCULAR HGB CONC 34.1 g/dL (33.0-37.0); MONO # 0.7 K/uL (0.0-0.8); NEUT # 5.4 K/uL (1.8-7.0); NEUT % 66.1 % (50.0-75.0); RBC 4.99 Mil/uL (4.40-5.90); RED CELL DISTRIBUTION WIDTH 13.6 % (11.5-14.5); WHITE BLOOD COUNT 8.2 K/uL (4.8-10.8)
[2017-07-31 10:04] LABS: ALB/GLOB RATIO 1.4 (1.0-2.1); ALBUMIN 4.4 g/dL (3.5-5.0); ALT/SGPT 24 U/L (21-72); AST/SGOT 20 U/L (17-59); BLOOD UREA NITROGEN 14 mg/dL (9-20); CALCIUM 9.1 mg/dl (8.6-10.4); GFR AFRICAN-AMERICAN > 60; GFR NON-AFRICAN AMERICAN > 60; LIPASE 74 U/L (23-300)
--- NOTE | 2017-07-31 10:24 | C.PDOC ---
History Of Present Illness 42-year-old male, PMHx includes chronic alcoholism, presents to the emergency department with complaints of two day duration of epigastric abdominal pain, associated with vomiting. Patient states he noticed "specks of blood" in his vomit. Has a Hx of pancreatitis and thinks it may have returned. Denies fevers, rash, diarrhea, travel, back pain, chest pain or shortness of breath. Time Seen by Provider: 07/31/17 08:38 Chief Complaint (Nursing): Abdominal Pain History Per: Patient History/Exam Limitations: no limitations Onset/Duration Of Symptoms: Days Current Symptoms Are (Timing): Still Present Severity: Moderate Location Of Pain/Discomfort: Epigastric Past Medical History Reviewed: Historical Data, Nursing Documentation, Vital Signs Vital Signs: Last Vital Signs Temp 98 F 07/31/17 11:30 Pulse 78 07/31/17 11:30 Resp 16 07/31/17 11:30 BP 135/76 07/31/17 11:30 Pulse Ox 96 07/31/17 12:24 - Medical History PMH: Anxiety, Arthritis, Asthma, Back Problems, Bipolar Disorder, COPD, Depression, Pancreatitis, Paranoia, Schizophrenia - [facility] Procedures DETOXIFICATION SERVICES FOR SUBSTANCE ABUSE TREATMENT (04/23/17) GROUP DIE TURNER FOR SUBSTANCE ABUSE TREATMENT, PSYCHOEDUCATION (06/26/16) GROUP PSYCHOTHERAPY (07/08/17) INDIV PSYCHOTHERAPY FOR SUBSTANCE ABUSE TREATMENT, SUPPORT (04/23/17) INDIV PSYCHOTHERAPY FOR SUBSTANCE ABUSE, COGNITIV BEHAVIORAL (07/08/17) INDIVIDUAL PSYCHOTHERAPY, COGNITIVE-BEHAVIORAL (07/08/17) INDIVIDUAL PSYCHOTHERAPY, SUPPORTIVE (06/22/17) INJECT/INFUSE NEC (10/10/14) MEDICATION MANAGEMENT (04/23/17) NEBULIZER THERAPY (02/16/14) Family History: States: No Known Family Hx - Social History Hx Tobacco Use: Yes (light smoker) Hx Alcohol Use: Yes (pt stated he had Detox years ago) Hx Substance Use: No - Immunization History Hx Tetanus Toxoid Vaccination: No Hx Influenza Vaccination: No Hx Pneumococcal Vaccination: No Review Of Systems Except As Marked, All Systems Reviewed And Found Negative. Constitutional: Negative for: Fever, Chills Respiratory: Negative for: Shortness of Breath Gastrointestinal: Positive for: Nausea, Vomiting, Abdominal Pain Musculoskeletal: Negative for: Back Pain Skin: Negative for: Rash Neurological: Negative for: Weakness, Headache, Dizziness Physical Exam - Physical Exam Appears: Non-toxic, No Acute Distress Skin: Normal Color, Warm, Dry, No Rash Head: Atraumatic, Normacephalic Eye(s): bilateral: PERRL Nose: Normal Oral Mucosa: Moist Neck: Normal ROM Chest: Symmetrical, No Tenderness Cardiovascular: Rhythm Regular, No Friction Rub, No Murmur Respiratory: Normal Breath Sounds, No Accessory Muscle Use Gastrointestinal/Abdominal: Bowel Sounds (active), Soft, No Tenderness Back: Normal Inspection, No CVA Tenderness Extremity: Normal ROM, No Deformity, No Swelling Neurological/Psych: Oriented x3, Normal Speech, Normal Motor Gait: Steady ED Course And Treatment - Laboratory Results Result Diagrams: 07/31/17 09:42 07/31/17 09:42 O2 Sat by Pulse Oximetry: 96 (RA) Pulse Ox Interpretation: Normal Medical Decision Making Medical Decision Making: Plan: * Labs * Chest X-Ray * Maalox, , Protonix, IVF, Toradol, Zofran * UA * Reassess and Disposition On re-exam, the patient reports that she feels well. Abdomen is soft, non- tender and the patient is tolerating PO well. Lungs are CTA, heart is RRR. Ambulatory in the ED with steady gait. Follow up with the medical doctor/clinic within 1-2 days. Return if worsened. Disposition - Disposition Referrals: at [facility] [Outside] Disposition: HOME/ ROUTINE Disposition Time: 11:18 Condition: FAIR Additional Instructions: Follow up with the medical doctor within 1-2 days. Return if worsened. Prescriptions: Famotidine [Pepcid] 20 mg PO BID #20 tab Ondansetron ODT [Zofran ODT] 1 odt PO BID PRN #6 odt PRN Reason: Nausea/Vomiting Instructions: Gastritis (DC) Forms: [employer] (Peruvian) - Clinical Impression Clinical Impression: Alcoholic gastritis - Scribe Statement The provider has reviewed the documentation as recorded by the Scribe (Shae Apodaca) All medical record entries made by the Scribe were at my direction and personally dictated by me. I have reviewed the chart and agree that the record accurately reflects my personal performance of the history, physical exam, medical decision making, and the department course for this patient. I have also personally directed, reviewed, and agree with the discharge instructions and disposition.
--- NOTE | 2017-07-31 10:37 | RAD ---
PROCEDURE: CHEST RADIOGRAPH, 1 VIEW HISTORY: Abdominal pain COMPARISON: 07/19/2016. FINDINGS: LUNGS: The lungs are well inflated and clear. PLEURA: No pneumothorax or pleural fluid seen. CARDIOVASCULAR: Normal. OSSEOUS STRUCTURES: No significant abnormalities. VISUALIZED UPPER ABDOMEN: Normal. OTHER FINDINGS: None. IMPRESSION: No active pulmonary disease.
[2017-07-31 11:04] VITALS: TEMP 98
[2017-07-31 11:31] VITALS: BP 135/76; PULSE 78; RESP 16
[2017-07-31 12:19] VITALS: O2SAT 96
== END 2017-07-31 11:30 | disposition home or self-care (01) ==
LOC: C.ER 08:25
DX: K29.20 Alcoholic gastritis without bleeding (principal); F10.20 Alcohol dependence, uncomplicated
CPT/HCPCS: 71045; 80053; 81001; 83690; 85025; 96374; 96375; 99285; C9113; J1885; J2405; J7040

== ENCOUNTER 2017-08-06 22:31 | Inpatient (IN) | payer MEDICAID ==
[2017-08-06 22:31] VITALS: BMI 33.0
[2017-08-06 23:39] LABS: BASO # 0.1 K/uL (0.0-0.2); BASO % 1.2 % (0.0-2.0); EOS # 0.5 K/uL (0.0-0.7); EOS % 4.4 % (0.0-4.0); HEMOGLOBIN 16.9 g/dL (12.0-18.0); LYMPH # 3.5 K/uL (1.0-4.3); LYMPH % 30.6 % (20.0-40.0); MEAN CELL VOLUME 90.9 fL (80.0-94.0); MEAN CORPUSCULAR HEMOGLOBIN 31.2 pg (27.0-31.0); MEAN CORPUSCULAR HGB CONC 34.3 g/dL (33.0-37.0); MEAN PLATELET VOLUME 7.3 fL (7.2-11.7); MONO # 0.9 K/uL (0.0-0.8); MONO % 7.7 % (0.0-10.0); NEUT # 6.5 K/uL (1.8-7.0); NEUT % 56.1 % (50.0-75.0); NRBC % 0.2 % (0.0-2.0); RBC 5.42 Mil/uL (4.40-5.90); RED CELL DISTRIBUTION WIDTH 13.7 % (11.5-14.5); WHITE BLOOD COUNT 11.5 K/uL (4.8-10.8)
[2017-08-06 23:49] LABS: ALB/GLOB RATIO 1.2 (1.0-2.1); ALBUMIN 4.7 g/dL (3.5-5.0); ALT/SGPT 37 U/L (21-72); AST/SGOT 24 U/L (17-59); BLOOD UREA NITROGEN 12 mg/dL (9-20); CALCIUM 9.6 mg/dl (8.6-10.4); GFR AFRICAN-AMERICAN > 60; GFR NON-AFRICAN AMERICAN > 60
[2017-08-06 23:53] LABS: URINE BILIRUBIN NEGATIVE (NEGATIVE); URINE BLOOD NEGATIVE (NEGATIVE); URINE CLARITY Clear (Clear); URINE COLOR Yellow (YELLOW); URINE GLUCOSE (UA) NORMAL (Normal); URINE LEUKOCYTE ESTERASE NEG Leu/uL (Negative); URINE PROTEIN NEGATIVE (NEGATIVE); URINE UROBILINOGEN NORMAL mg/dL (0.2-1.0)
[2017-08-06 23:59] LABS: BARBITURATES, UR NEGATIVE (NEGATIVE); BENZODIAZEPINES, UR NEGATIVE (NEGATIVE); PHENCYCLIDINE, UR NEGATIVE (NEGATIVE)
[2017-08-07 00:07] LABS: OPIATES, UR POSITIVE (NEGATIVE)
--- NOTE | 2017-08-07 00:29 | C.PDOC ---
History Of Present Illness Pt is here requesting detox from alcohol. Time Seen by Provider: 08/06/17 23:16 Chief Complaint (Nursing): Substance Abuse History Per: Patient Onset/Duration Of Symptoms: Days Current Symptoms Are (Timing): Still Present Suicide/Self Injury Attempted (Context): None Modifying Factor(s): Alcohol Severity: Moderate Associated Symptoms: denies: Suicidal Thoughts, Suicidal Plan Additional History Per: Prior Records Past Medical History Reviewed: Historical Data, Nursing Documentation, Vital Signs Vital Signs: Last Vital Signs Temp 98 F 08/06/17 22:34 Pulse 116 H 08/06/17 22:34 Resp 20 08/06/17 22:34 BP 142/96 H 08/06/17 22:34 Pulse Ox 95 08/07/17 00:29 - Medical History PMH: Anxiety, Arthritis, Asthma, Back Problems, Bipolar Disorder, COPD, Depression, Pancreatitis, Paranoia, Schizophrenia Other PMH: Lipomas Surgical History: No Surg Hx - [facility] Procedures DETOXIFICATION SERVICES FOR SUBSTANCE ABUSE TREATMENT (04/23/17) GROUP HEAD PORTER BAGGAGE FOR SUBSTANCE ABUSE TREATMENT, PSYCHOEDUCATION (06/26/16) GROUP PSYCHOTHERAPY (07/08/17) INDIV PSYCHOTHERAPY FOR SUBSTANCE ABUSE TREATMENT, SUPPORT (04/23/17) INDIV PSYCHOTHERAPY FOR SUBSTANCE ABUSE, COGNITIV BEHAVIORAL (07/08/17) INDIVIDUAL PSYCHOTHERAPY, COGNITIVE-BEHAVIORAL (07/08/17) INDIVIDUAL PSYCHOTHERAPY, SUPPORTIVE (06/22/17) INJECT/INFUSE NEC (10/10/14) MEDICATION MANAGEMENT (04/23/17) NEBULIZER THERAPY (02/16/14) Family History: States: Unknown Family Hx - Social History Hx Tobacco Use: Yes (light smoker) Hx Alcohol Use: Yes Hx Substance Use: No - Immunization History Hx Tetanus Toxoid Vaccination: No Hx Influenza Vaccination: No Hx Pneumococcal Vaccination: No Review Of Systems Except As Marked, All Systems Reviewed And Found Negative. Constitutional: Negative for: Fever, Weakness Cardiovascular: Negative for: Chest Pain Respiratory: Negative for: Shortness of Breath Gastrointestinal: Negative for: Vomiting, Abdominal Pain Musculoskeletal: Negative for: Neck Pain Neurological: Negative for: Weakness, Numbness Physical Exam - Physical Exam Appears: Non-toxic, No Acute Distress Skin: Normal Color, Warm, Dry, Other (Lipomas) Head: Atraumatic, Normacephalic Eye(s): bilateral: PERRL, EOMI Neck: Normal ROM, Supple Cardiovascular: Rhythm Regular Respiratory: Normal Breath Sounds, No Accessory Muscle Use Gastrointestinal/Abdominal: Soft, No Tenderness Extremity: Normal ROM Neurological/Psych: Oriented x3, Normal Motor, Normal Sensation ED Course And Treatment - Laboratory Results Result Diagrams: 08/06/17 23:32 08/06/17 23:32 O2 Sat by Pulse Oximetry: 95 Pulse Ox Interpretation: Normal Disposition - Disposition Disposition Time: 01:00 Condition: STABLE - Clinical Impression Clinical Impression: Alcohol dependence Physician Patient Turnover Patient Signed Over To: Edison Ramirez Handoff Comments: Pending sample worker eval for detox admission.
[2017-08-07 05:24] VITALS: TEMP 98
--- NOTE | 2017-08-07 06:19 | PCM.BM ---
<Mellisa Lorenzo - Last Filed: 08/07/17 06:18> Treatment Plan Problems - Problems identified on initial assessmt Alcohol Dependent Date Initiated: 08/07/17 Time Initiated: 06:18 Assessment reference: NA Status: Active Treatment assets and liabiliti Patient Assests: cooperative, self-reliant, ADL independent, negotiates basic needs, good past tx response Patient Liabilities: substance abuse - Milieu Protocol Maintain good personal hygiene: daily Encourage regular showers, daily Remind patient to perform daily oral care, daily Assist patient to perform ADL's Maintain personal safety: every shift Educate patient to report safety concerns to staff, every shift Monitor environment for contraband/sharps Medication safety: Monitor for expected outcome, potential side effects: every shift, Assess barriers to learning: every shift, Assess readiness for medication education: every shift <Filippo Marshall - Last Filed: 08/08/17 18:04> - Diagnosis (1) Alcohol dependence Status: Acute Interventions: 08/08/17 18:04 * Assess 7x/week regarding severity of withdrawal * Educate regarding risks, benefits, side effects and alternatives of medications * Use Motivational Interviewing for abstinence * Use CBT for relapse prevention * Medication management for withdrawal symptoms * Encourage medication assisted treatment *
[2017-08-07] MEDS ORDERED: buPROPion 150 mg/24 Hours XL Tab PO SCH (10:00)
--- NOTE | 2017-08-07 10:14 | PCM.PSYCH ---
Initial Psychiatric Evaluation - Initial Psychiatric Evaluation Type of Admission: Voluntary Legal Status: Capacity Chief Complaint (in patient's own words): "I was not thinking right" History of Present Illness and Precipitating Events: Patient is a 42 year old male. He is single, lives at a prison in [place] on/off for 4 years, unemployed (previously worked at the [employer] in [place]). He is well-known from many past psych and detox admissions. He was admitted for alcohol detox but he had just been discharged from [place] psych inpatient unit the same day (yesterday) morning after a 7-day stay for depression. He couldn't have been in withdrawal, and he admits that. He also admits that he used alcohol upon d/c but denies opioid use (UDS positive) and claims he [facility]. He agrees to be sd'ed and go to [facility] rehab and if he is not accepted he has a f/u appt at [facility]. MA used for abstinence Not depressed or suicidal, no manic/psychotic sxs Alcohol: drinks 1 pint of vodka daily. Cigarettes: 2 packs per week Drugs: denies now but used heroin in the past Rehab: Once last year Detox: 2-3x Most recently, Jan 2016. Psych Hx: drug-induced psychosis. He also had depression episodes in the past. Current Medications: Active Medications Generic Name Dose Route Start Last Admin Trade Name Freq PRN Reason Stop Dose Admin Bupropion HCl 150 mg 08/07/17 10:00 Wellbutrin Xl PO DAILY TOREY Clonidine HCl 0.1 mg 08/07/17 08:45 Catapres PO Q6H PRN BP>150/100 or P>100 Famotidine 20 mg 08/07/17 10:00 Pepcid PO BID TOREY Gabapentin 300 mg 08/07/17 10:00 Neurontin PO TID TOREY Hydroxyzine HCl 25 mg 08/07/17 08:45 Atarax PO Q6H PRN Anxiety Quetiapine Fumarate 300 mg 08/07/17 22:00 Seroquel PO HS TOREY Past Psychiatric History - Past Psychiatric History Previous Treatment History: Inpatient Pertinent Medical Hx (Current Medical&Sleep Prob, Allergies): Allergies Allergy/AdvReac Type Severity Reaction Status Date / Time shellfish derived Allergy ANAPHYLAXIS Verified 07/31/17 08:29 Famotidine [Pepcid] 20 mg PO BID #60 tab 08/07/17 Gabapentin [Neurontin] 300 mg PO TID #90 cap 08/07/17 QUEtiapine [Seroquel] 300 mg PO HS #30 tab 08/07/17 buPROPion XL [Wellbutrin XL] 150 mg PO DAILY #30 t24 08/07/17 Review of Systems - Neurological Neurological: UNREMARKABLE - Psychiatric Psychiatric: Abnormal Sleep Pattern, Anxiety. absent: Hallucinations, Homicidal Ideation, Hopelessness, Paranoia, Suicidal Ideation Mental Status Examination - Personal Presentation Personal Presentation: Looks stated age - Affect Affect: Constricted - Motor Activity Motor Activity: Calm - Reliability in Providing Information Reliability in Providing Information: Fair - Speech Speech: Organized - Mood Mood: Anxious - Formal Thought Process Formal Thought Process: No Impairment - Cognitive Functions Orientation: Person, Place, Situation, Time Sensorium: Alert Attention/Concentration: Easily distracted Estimate of Intelligence: Average Judgement: Imparied, as evidence by: Poor judgement Memory: Recent intact, as evidence by: Ability to recall events of the day, Remote intact, as evidenced by: Abilit to recall sig. life events - Risk Risk: Diminished functioning - Strength & Assets Inventory Strength & Assets Inventory: Cooperative - Limitations Limitations: Living alone, Other DSM 5 DX - DSM 5 DSM 5 Diagnosis: Alcohol use d/o - severe Major depressive d/o - recurrent, moderate Personality d/o - unspecified Opioid use d/o - moderate - Recommended/Plan of Treatment Treatment Recommendations and Plan of Treatment: Pt will be d/c'ed due to not needing detox Go to [facility] in [place] Also consider IOP at [facility] in [place] Continue below medications after discharge. He said he had not filled rx after [facility] admission Follow after care plan as discussed above Use relapse prevention skills Return to ER or call 911 if suicidal, homicidal or symptoms relapse. Stay away from stress, alcohol and drugs. See primary doctor regularly and get labs. 32 min - Smoking Cessation Smoking Cessation Initiated: Yes
--- NOTE | 2017-08-07 10:19 | PCM.PYCHDC ---
Mental Status Examination - Mental Status Examination Orientation: Person, Place, Situation, Time Memory: Intact Mood: Anxious Affect: Constricted Speech: Appropriate Attention: WNL Concentration: Poor Association: WNL Fund of Knowledge: WNL Formal Thought Process: No Impairment Suicidal Ideation: No Current Homicidal Ideation?: No Discharge Summary - Discharge Note Reason for Hospitalization: Alcohol detox Psychiatric History (includes Medical, Family, Personal Hx): Multiple admissions to [facility] with depression Laboratory Data: Abnormal Lab Results 08/06/17 08/06/17 08/06/17 23:32 23:32 23:40 WBC 11.5 H RBC 5.42 Hgb 16.9 Hct 49.3 MCV 90.9 MCH 31.2 H MCHC 34.3 RDW 13.7 Plt Count 322 MPV 7.3 Neut % (Auto) 56.1 Lymph % (Auto) 30.6 [place] % (Auto) 7.7 Eos % (Auto) 4.4 H Baso % (Auto) 1.2 Neut # (Auto) 6.5 Lymph # (Auto) 3.5 [place] # (Auto) 0.9 H Eos # (Auto) 0.5 Baso # (Auto) 0.1 Sodium 145 Potassium 3.7 Chloride 102 Carbon Dioxide 24 Anion Gap 22 H BUN 12 Creatinine 0.9 Est GFR ( Amer) > 60 Est GFR (Non-Af Amer) > 60 Random Glucose 115 H Calcium 9.6 Total Bilirubin 0.6 AST 24 ALT 37 Alkaline Phosphatase 47 Total Protein 8.6 H Albumin 4.7 Globulin 3.8 Albumin/Globulin Ratio 1.2 Urine Color Yellow Urine Clarity Clear Urine pH 5.0 Ur Specific [place] 1.019 Urine Protein Negative Urine Glucose (UA) Normal Urine Ketones Negative Urine Blood Negative Urine Nitrate Negative Urine Bilirubin Negative Urine Urobilinogen Normal Ur Leukocyte Esterase Neg Urine WBC (Auto) 1 Urine RBC (Auto) < 1 Urine Opiates Screen Urine Methadone Screen Ur Barbiturates Screen Ur Phencyclidine Scrn Ur Amphetamines Screen U Benzodiazepines Scrn U Oth Cocaine Metabols U Cannabinoids Screen Alcohol, Quantitative 212 H 08/06/17 23:40 WBC RBC Hgb Hct MCV MCH MCHC RDW Plt Count MPV Neut % (Auto) Lymph % (Auto) [place] % (Auto) Eos % (Auto) Baso % (Auto) Neut # (Auto) Lymph # (Auto) [place] # (Auto) Eos # (Auto) Baso # (Auto) Sodium Potassium Chloride Carbon Dioxide Anion Gap BUN Creatinine Est GFR ( Amer) Est GFR (Non-Af Amer) Random Glucose Calcium Total Bilirubin AST ALT Alkaline Phosphatase Total Protein Albumin Globulin Albumin/Globulin Ratio Urine Color Urine Clarity Urine pH Ur Specific [place] Urine Protein Urine Glucose (UA) Urine Ketones Urine Blood Urine Nitrate Urine Bilirubin Urine Urobilinogen Ur Leukocyte Esterase Urine WBC (Auto) Urine RBC (Auto) Urine Opiates Screen Positive H Urine Methadone Screen Negative Ur Barbiturates Screen Negative Ur Phencyclidine Scrn Negative Ur Amphetamines Screen Negative U Benzodiazepines Scrn Negative U Oth Cocaine Metabols Negative U Cannabinoids Screen Negative Alcohol, Quantitative Consultations:: List each consultation separately and include: 1. Reason for request. 2. Findings. 3. Follow-up Summary of Hospital Course include:: 1. Description of specific treatment plan utilized for patients during their course of treatmen. 2. Summarize the time- course for resolution of acute symptoms and/or regressed behaviors. 3. Describe issues identified and worked on during hospitalization. 4. Describe medication utilized. 5. Describe medical problems identified and treated. 6. Reassessment of suicide risk Summary of Hospital Course: The pt was admitted and started on treatment with support [place] and CBT used. All the risks and benefits of medications are discussed and the patient understood and agreed. The pt did not have any wdw sxs b/c he was just d/c'ed from an inpatient unit after 7 days and only drank for 1 day After care discussed with the patient. He agreed to follow with [facility] but will also try [facility] - Final Diagnosis (DSM 5) Condition upon Discharge: FAIR DSM 5: Alcohol use d/o - severe Major depressive d/o - recurrent, moderate Personality d/o - unspecified Opioid use d/o - moderate Disposition: HOME/ ROUTINE Follow-up Treatment Plan: Continue below medications after discharge. Follow after care plan as discussed. Use relapse prevention skills Return to ER or call 911 if suicidal, homicidal or symptoms relapse. Stay away from stress, alcohol and drugs. See primary doctor regularly and get labs. Prescriptions/Medication Reconciliation: buPROPion XL [Wellbutrin XL] 150 mg PO DAILY #30 t24 Famotidine [Pepcid] 20 mg PO BID #60 tab Gabapentin [Neurontin] 300 mg PO TID #90 cap QUEtiapine [Seroquel] 300 mg PO HS #30 tab
[2017-08-07 10:51] VITALS: BP 120/82; PULSE 100; RESP 20; O2SAT 98
== END 2017-08-07 11:00 | disposition home or self-care (01) | DRG 744 ==
LOC: C.ER 22:31 → C.7D 08-07 05:13
PROVIDERS: ADMIT Psychiatry & Neurology Psychiatry; ATTEND Psychiatry & Neurology Psychiatry
PROC: HZ2ZZZZ Detoxification Services for Substance Abuse Treatment (ICD-10-PCS; principal; 2017-08-07)
DX: F10.220 Alcohol dependence with intoxication, uncomplicated (principal); J44.9 Chronic obstructive pulmonary disease, unspecified; F11.10 Opioid abuse, uncomplicated; F33.1 Major depressive disorder, recurrent, moderate; Y90.7 Blood alcohol level of 200-239 mg/100 ml; F31.9 Bipolar disorder, unspecified; Z87.891 Personal history of nicotine dependence

== ENCOUNTER 2017-08-19 21:17 | Emergency (ER) | payer MEDICAID ==
[2017-08-19 21:17] VITALS: BMI 33.0
--- NOTE | 2017-08-19 22:58 | C.PDOC ---
History Of Present Illness Patient is a 42 y/o male who presents to the ED with a complaint of acute EtOH intoxication requesting for a place to stay. Patient has history of ED presentations for the same. Patient normally stays in homeless halfway. No other physical complaints at this time. Time Seen by Provider: 08/19/17 22:34 Chief Complaint (Nursing): Substance Abuse History Per: Patient History/Exam Limitations: no limitations Onset/Duration Of Symptoms: Hrs Current Symptoms Are (Timing): Still Present Suicide/Self Injury Attempted (Context): None Modifying Factor(s): Alcohol Past Medical History Reviewed: Historical Data, Nursing Documentation, Vital Signs Vital Signs: Last Vital Signs Temp 97.9 F 08/19/17 22:02 Pulse 100 H 08/19/17 22:02 Resp 16 08/19/17 22:02 BP 119/78 08/19/17 22:02 Pulse Ox 95 08/20/17 00:34 - Medical History PMH: Anxiety, Arthritis, Asthma, Back Problems, Bipolar Disorder, COPD, Depression, Pancreatitis, Paranoia, Schizophrenia Denies: Diabetes, Hepatitis, HIV, HTN, Chronic Kidney Disease, Seizures, Sexually Transmitted Disease Surgical History: No Surg Hx - [facility] Procedures DETOXIFICATION SERVICES FOR SUBSTANCE ABUSE TREATMENT (08/07/17) GROUP PATCHER FOR SUBSTANCE ABUSE TREATMENT, PSYCHOEDUCATION (06/26/16) GROUP PSYCHOTHERAPY (07/31/17) INDIV PSYCHOTHERAPY FOR SUBSTANCE ABUSE TREATMENT, SUPPORT (04/23/17) INDIV PSYCHOTHERAPY FOR SUBSTANCE ABUSE, COGNITIV BEHAVIORAL (07/31/17) INDIVIDUAL PSYCHOTHERAPY, COGNITIVE-BEHAVIORAL (07/31/17) INDIVIDUAL PSYCHOTHERAPY, SUPPORTIVE (06/22/17) INJECT/INFUSE NEC (10/10/14) MEDICATION MANAGEMENT (04/23/17) NEBULIZER THERAPY (02/16/14) Family History: States: No Known Family Hx - Social History Hx Tobacco Use: Yes (light smoker) Hx Alcohol Use: Yes Hx Substance Use: No - Immunization History Hx Tetanus Toxoid Vaccination: No Hx Influenza Vaccination: No Hx Pneumococcal Vaccination: No Review Of Systems Neurological: Positive for: Other (EtOH intoxication) Physical Exam - Physical Exam Appears: No Acute Distress, Other (EtOH on breath; lethargic) Skin: Normal Color, Warm, Dry Head: Atraumatic, Normacephalic Oral Mucosa: Moist Chest: Symmetrical Cardiovascular: Rhythm Regular, No Murmur Respiratory: Normal Breath Sounds, No Rales, No Rhonchi, No Wheezing Gastrointestinal/Abdominal: Soft, No Tenderness Neurological/Psych: Oriented x3, No Normal Speech (slurred) ED Course And Treatment O2 Sat by Pulse Oximetry: 95 Progress Note: Patient to stay in ED until sobreity is reached. Disposition - Disposition Disposition Time: 00:33 Condition: STABLE - Clinical Impression Clinical Impression: Alcohol intoxication - Scribe Statement The provider has reviewed the documentation as recorded by the Scribe Janis Pacheco All medical record entries made by the Scribe were at my direction and personally dictated by me. I have reviewed the chart and agree that the record accurately reflects my personal performance of the history, physical exam, medical decision making, and the department course for this patient. I have also personally directed, reviewed, and agree with the discharge instructions and disposition. Physician Patient Turnover Patient Signed Over To: Edison Ramirez Handoff Comments: pending sobriety
[2017-08-20 03:44] VITALS: RESP 18
[2017-08-20 05:29] VITALS: BP 118/72; PULSE 99; TEMP 98; O2SAT 98
== END 2017-08-20 05:30 | disposition home or self-care (01) ==
LOC: C.ER 21:17
DX: F10.129 Alcohol abuse with intoxication, unspecified (principal); Y90.9 Presence of alcohol in blood, level not specified

== ENCOUNTER 2017-09-08 15:42 | Emergency (ER) | payer MEDICAID, OTHER ==
[2017-09-08 15:43] VITALS: BMI 33.0
[2017-09-08 15:54] VITALS: RESP 16
[2017-09-08 18:14] VITALS: BP 118/80; PULSE 98; TEMP 97.3; O2SAT 97
--- NOTE | 2017-09-08 18:18 | C.PDOC ---
History Of Present Illness [id number] male, presents to the emergency department with complaints of nausea and epigastric pain that started after drinking alcohol. Patient has a Hx of alcohol abuse, and has been seen in ED for this multiple times in the past. Denies any SI/HI. Time Seen by Provider: 09/08/17 16:27 Chief Complaint (Nursing): Abdominal Pain History Per: Patient History/Exam Limitations: no limitations Onset/Duration Of Symptoms: Days Current Symptoms Are (Timing): Still Present Past Medical History Reviewed: Historical Data, Nursing Documentation, Vital Signs Vital Signs: Last Vital Signs Temp 97.3 F L 09/08/17 18:14 Pulse 98 H 09/08/17 18:14 Resp 16 09/08/17 18:14 BP 118/80 09/08/17 18:14 Pulse Ox 97 09/08/17 18:18 - Medical History PMH: Anxiety, Arthritis, Asthma, Back Problems, Bipolar Disorder, COPD, Depression, Pancreatitis, Paranoia, Schizophrenia - [facility] Procedures DETOXIFICATION SERVICES FOR SUBSTANCE ABUSE TREATMENT (08/07/17) GROUP PACKAGE DYER FOR SUBSTANCE ABUSE TREATMENT, PSYCHOEDUCATION (06/26/16) GROUP PSYCHOTHERAPY (07/31/17) INDIV PSYCHOTHERAPY FOR SUBSTANCE ABUSE TREATMENT, SUPPORT (04/23/17) INDIV PSYCHOTHERAPY FOR SUBSTANCE ABUSE, COGNITIV BEHAVIORAL (07/31/17) INDIVIDUAL PSYCHOTHERAPY, COGNITIVE-BEHAVIORAL (07/31/17) INDIVIDUAL PSYCHOTHERAPY, SUPPORTIVE (06/22/17) INJECT/INFUSE NEC (10/10/14) MEDICATION MANAGEMENT (04/23/17) NEBULIZER THERAPY (02/16/14) Family History: States: No Known Family Hx - Social History Hx Tobacco Use: Yes (light smoker) Hx Alcohol Use: Yes Hx Substance Use: Yes - Immunization History Hx Influenza Vaccination: Yes Review Of Systems Cardiovascular: Negative for: Chest Pain Respiratory: Negative for: Shortness of Breath Gastrointestinal: Negative for: Vomiting Neurological: Negative for: Weakness, Numbness Psych: Positive for: Withdrawal. Negative for: Suicidal ideation Physical Exam - Physical Exam Appears: Non-toxic, No Acute Distress Skin: Normal Color, Warm, Dry, No Rash Head: Normacephalic Eye(s): bilateral: Normal Inspection, PERRL, EOMI Nose: Normal Oral Mucosa: Moist Lips: Normal Appearing Neck: Normal ROM Chest: Symmetrical Cardiovascular: Rhythm Regular, No Murmur Respiratory: Normal Breath Sounds, No Accessory Muscle Use Extremity: Normal ROM, No Deformity, No Swelling Neurological/Psych: Oriented x3, Normal Speech ED Course And Treatment O2 Sat by Pulse Oximetry: 97 (RA) Pulse Ox Interpretation: Normal Disposition Counseled Patient/Family Regarding: Studies Performed, Diagnosis, Need For Followup - Disposition Referrals: [facility] [Outside] Disposition: HOME/ ROUTINE Disposition Time: 18:15 Condition: STABLE Instructions: Anxiety, Adult (DC), Alcohol Abuse and Alcoholism (DC) Forms: CARDFREE (Grenadian) Print Language: CENTRAL AFRICAN - Clinical Impression Clinical Impression: Anxiety, Alcohol dependence - Scribe Statement The provider has reviewed the documentation as recorded by the Scribe (Shae Apodaca) All medical record entries made by the Scribe were at my direction and personally dictated by me. I have reviewed the chart and agree that the record accurately reflects my personal performance of the history, physical exam, medical decision making, and the department course for this patient. I have also personally directed, reviewed, and agree with the discharge instructions and disposition.
== END 2017-09-08 18:26 | disposition home or self-care (01) ==
LOC: C.ER 15:42
DX: F41.9 Anxiety disorder, unspecified (principal); F10.20 Alcohol dependence, uncomplicated; Y90.9 Presence of alcohol in blood, level not specified

== ENCOUNTER 2017-09-15 15:35 | Inpatient (IN) | payer MEDICAID, OTHER ==
[2017-09-15 15:35] VITALS: BMI 33.0
--- NOTE | 2017-09-15 16:51 | C.PDOC ---
History Of Present Illness 42 y/o male with history of Depression and ETOH abuse presents to ED with suicidal ideation stating " I am going to run in front of a car to get hit ". Patient is well known to ED for similar evaluations. No other physical complaints at this time. Time Seen by Provider: 09/15/17 16:35 Chief Complaint (Nursing): Psychiatric Evaluation History Per: Patient History/Exam Limitations: no limitations Onset/Duration Of Symptoms: Days Current Symptoms Are (Timing): Still Present Suicide/Self Injury Attempted (Context): None Modifying Factor(s): None Past Medical History Reviewed: Historical Data, Nursing Documentation, Vital Signs Vital Signs: Last Vital Signs Temp 98.5 F 09/15/17 20:16 Pulse 83 09/15/17 20:16 Resp 17 09/15/17 20:42 BP 118/71 09/15/17 20:16 Pulse Ox 96 09/15/17 20:16 - Medical History PMH: Anxiety, Arthritis, Asthma, Back Problems, Bipolar Disorder, COPD, Depression, Pancreatitis, Paranoia, Schizophrenia Surgical History: No Surg Hx - [facility] Procedures DETOXIFICATION SERVICES FOR SUBSTANCE ABUSE TREATMENT (08/07/17) GROUP BUSINESS DEPARTMENT CHAIR FOR SUBSTANCE ABUSE TREATMENT, PSYCHOEDUCATION (06/26/16) GROUP PSYCHOTHERAPY (09/02/17) INDIV PSYCHOTHERAPY FOR SUBSTANCE ABUSE TREATMENT, SUPPORT (09/02/17) INDIV PSYCHOTHERAPY FOR SUBSTANCE ABUSE, COGNITIV BEHAVIORAL (07/31/17) INDIV PSYCHOTHERAPY FOR SUBSTANCE ABUSE, MOTIVATION ENHANCE (09/02/17) INDIVIDUAL PSYCHOTHERAPY, COGNITIVE-BEHAVIORAL (07/31/17) INDIVIDUAL PSYCHOTHERAPY, SUPPORTIVE (06/22/17) INJECT/INFUSE NEC (10/10/14) MEDICATION MANAGEMENT (04/23/17) NEBULIZER THERAPY (02/16/14) Family History: States: No Known Family Hx - Social History Hx Tobacco Use: Yes (light smoker) Hx Alcohol Use: Yes Hx Substance Use: No - Immunization History Hx Tetanus Toxoid Vaccination: Yes Hx Influenza Vaccination: Yes Hx Pneumococcal Vaccination: Yes Review Of Systems Constitutional: Negative for: Fever, Chills Cardiovascular: Negative for: Chest Pain Gastrointestinal: Negative for: Nausea, Vomiting Skin: Negative for: Rash Psych: Positive for: Depression, Suicidal ideation. Negative for: Anxiety Physical Exam - Physical Exam Appears: Non-toxic, No Acute Distress Skin: Warm, Dry, No Rash Head: Atraumatic, Normacephalic Eye(s): bilateral: Normal Inspection Oral Mucosa: Moist Neck: Normal ROM, Supple Cardiovascular: Rhythm Regular Respiratory: Normal Breath Sounds, No Rales, No Rhonchi, No Wheezing Gastrointestinal/Abdominal: Soft, No Tenderness, No Guarding, No Rebound Neurological/Psych: Oriented x3, Normal Speech, Normal Cognition ED Course And Treatment - Laboratory Results Result Diagrams: 09/15/17 17:33 09/15/17 17:33 O2 Sat by Pulse Oximetry: 95 (RA) Medical Decision Making Medical Decision Makin: Patient is medically cleared Disposition - Disposition Disposition: HOSPITALIZED Disposition Time: 08:00 Condition: STABLE - Clinical Impression Clinical Impression: Moderate major depression, single episode - Scribe Statement The provider has reviewed the documentation as recorded by the Scribcarter Barber All medical record entries made by the Scribe were at my direction and personally dictated by me. I have reviewed the chart and agree that the record accurately reflects my personal performance of the history, physical exam, medical decision making, and the department course for this patient. I have also personally directed, reviewed, and agree with the discharge instructions and disposition. Decision To Admit - Pt Status Changed To: Hospital Disposition Of: Inpatient - Admit Certification Admit to Inpatient:: After my assessment, the patient will require hospitalization for at least two midnights. This is because of the severity of symptoms shown, intensity of services needed, and/or the medical risk in this patient being treated as an outpatient. - InPatient: Physician Admission Certification: I certify that this patient requires 2 or more midnights of care for the following reason:: needs pysch - . Bed Request Type: Psychiatry Admitting Physician: Robert Viera Patient Diagnosis: Moderate major depression, single episode
[2017-09-15 17:39] LABS: BASO # 0.2 K/uL (0.0-0.2); BASO % 1.8 % (0.0-2.0); EOS # 0.2 K/uL (0.0-0.7); EOS % 2.2 % (0.0-4.0); HEMOGLOBIN 16.2 g/dL (12.0-18.0); LYMPH # 2.2 K/uL (1.0-4.3); LYMPH % 25.3 % (20.0-40.0); MEAN CELL VOLUME 91.1 fL (80.0-94.0); MEAN CORPUSCULAR HEMOGLOBIN 31.7 pg (27.0-31.0); MEAN CORPUSCULAR HGB CONC 34.8 g/dL (33.0-37.0); MEAN PLATELET VOLUME 7.8 fL (7.2-11.7); MONO # 0.5 K/uL (0.0-0.8); MONO % 5.9 % (0.0-10.0); NEUT # 5.6 K/uL (1.8-7.0); NEUT % 64.8 % (50.0-75.0); NRBC % 0.2 % (0.0-2.0); RBC 5.11 Mil/uL (4.40-5.90); RED CELL DISTRIBUTION WIDTH 13.6 % (11.5-14.5); WHITE BLOOD COUNT 8.7 K/uL (4.8-10.8)
[2017-09-15 17:43] LABS: SQUAMOUS EPITHIAL < 1 /hpf (0-5); URINE BACTERIA RARE (<OCC); URINE BILIRUBIN NEGATIVE (NEGATIVE); URINE BLOOD NEGATIVE (NEGATIVE); URINE CLARITY Hazy (Clear); URINE COLOR Yellow (YELLOW); URINE GLUCOSE (UA) NORMAL (Normal); URINE LEUKOCYTE ESTERASE NEG Leu/uL (Negative); URINE PROTEIN NEGATIVE (NEGATIVE); URINE UROBILINOGEN NORMAL mg/dL (0.2-1.0)
[2017-09-15 17:56] LABS: BARBITURATES, UR NEGATIVE (NEGATIVE); BENZODIAZEPINES, UR NEGATIVE (NEGATIVE); OPIATES, UR NEGATIVE (NEGATIVE); PHENCYCLIDINE, UR NEGATIVE (NEGATIVE)
[2017-09-15 18:03] LABS: ACETAMINOPHEN < 10.0 ug/mL (10.0-30.0); ALB/GLOB RATIO 1.4 (1.0-2.1); ALBUMIN 4.7 g/dL (3.5-5.0); ALT/SGPT 30 U/L (21-72); AST/SGOT 21 U/L (17-59); BLOOD UREA NITROGEN 9 mg/dL (9-20); CALCIUM 10.2 mg/dl (8.6-10.4); GFR AFRICAN-AMERICAN > 60; GFR NON-AFRICAN AMERICAN > 60; SALICYLATE < 1.0 mg/dL 1
[2017-09-15] MEDS ORDERED: Potassium Chloride 20 mEq ER Tab PO STA (19:51)
[2017-09-15] MEDS ORDERED: Potassium Chloride 20 mEq ER Tab PO ONE (20:11)
[2017-09-15 20:50] VITALS: O2SAT 95
--- NOTE | 2017-09-15 20:53 | PCM.BM ---
<Nina Rios - Last Filed: 09/15/17 20:52> Treatment Plan Problems - Problems identified on initial assessmt Depression Date Initiated: 09/15/17 Time Initiated: 20:52 Assessment reference: NA Status: Active Suicidal Ideation Date Initiated: 09/15/17 Time Initiated: 20:52 Assessment reference: NA Status: Active Treatment assets and liabiliti Patient Assests: adapts well, cooperative, self-reliant, ADL independent, physically healthy, negotiates basic needs, good past tx response, cognitively intact Patient Liabilities: live alone (Homeless), financial problems, substance abuse (Hx of ETOH), medical problems (Asthma, COPD, back pain, Athritis), visual impairment (Wear glasses) - Milieu Protocol Maintain good personal hygiene: daily Encourage regular showers, daily Remind patient to perform daily oral care, daily Assist patient to perform ADL's (Self) Maintain personal safety: every shift Educate patient to report safety concerns to staff, every shift Monitor environment for contraband/sharps Medication safety: Monitor for expected outcome, potential side effects: every shift, Assess barriers to learning: every shift, Assess readiness for medication education: every shift <Tracy Bose - Last Filed: 09/16/17 14:57> Family Contact Family involvement: Patient does not wish Family/SO involvement Family contact: Patient declines to allow family contact at present - Goals for Treatment Patient goals for treatment: "I want to attend an inpatient program." Discharge/Continuing Care - Education Needs Education Needs: Patient Medication, Patient Coping Skills, Patient Placement options, Patient Community resources - Discharge Discharge Criteria: Free of Suicidal thoughts, Normal sleep pattern, Ability to care for self, No longer exhibiting s/s of withdrawal, Reduction of target symptoms Discharge to:: Substance Abuse Rehab, Other - Treatment Team Participation Discussed with Family/SO: No Was Patient/Family/SO present at Treatment Team Meeting: Yes <Filippo Marshall - Last Filed: 09/18/17 00:10> - Diagnosis (1) Alcohol dependence Status: Acute Interventions: 09/18/17 00:10 * Assess 7x/week regarding severity of withdrawal * Educate regarding risks, benefits, side effects and alternatives of medications * Use Motivational Interviewing for abstinence * Use CBT for relapse prevention * Medication management for withdrawal symptoms * Encourage medication assisted treatment * (2) Depression Status: Acute Interventions: 09/18/17 00:10 * Assess/adjust medications daily and /or as needed * See patient on an individual basis 7x/week to assess symptoms of depression * Monitor for side effects & effectiveness of medications *
[2017-09-16] MEDS: Multiple Vitamins Tab PO SCH (10:00)
[2017-09-16] MEDS ORDERED: DiphenhydrAMINE 50 mg/ml Inj IM ONE (12:00)
--- NOTE | 2017-09-16 14:45 | PCM.PSYCH ---
Initial Psychiatric Evaluation - Initial Psychiatric Evaluation Type of Admission: Voluntary Legal Status: Capacity Chief Complaint (in patient's own words): "I'm depressed and anxious" History of Present Illness and Precipitating Events: He is seen, chart reviewed and case discussed He is well-known from previous admissions. Patient is a 42 year old male who lives alone, is homeless and unemployed. Patient has a history of depression with suicidal ideation. Patient denies any past suicide attempts, but he said he thought about jumping into traffic. Patient states that he has been depressed for the past two years. He said he has had loss of family members which have contributed to his depression. Patient states he is depressed, anxious, has racing thoughts and difficulty concentrating, is paranoid, and is hearing voices that tell him to hurt himself at times. Patient denies visual hallucinations. Patient denies drug use, but states he has been drinking 0.5-1 pint of vodka/ day for the past two years. Patient has smoked 2 cigarettes/day for the past 3 years. Patient currently complains of withdrawal symptoms of anxiety and hand tremor. Patient has had many past psychiatric hospitalizations, the most recent one this past year. Patient has been to detox twice, the most recent this past year. Patient's longest period of sobriety was 3 months. Patient recently left [facility] after a week of stay and drank, and then came here. he says he liked it a lot but he needed to get his psych meds. Patient does not currently see a psychiatrist, and states he stopped using his medications when his insurance . PMH: Denies Family Hx: Mother has stage 4 breast cancer; no psych history in family Current Medications: Active Medications Generic Name Dose Route Start Last Admin Trade Name Freq PRN Reason Stop Dose Admin Clonidine HCl 0.1 mg 09/15/17 23:02 Catapres PO Q4H PRN Symptoms of alcohol withdrawl Folic Acid 1 mg 09/16/17 10:00 09/16/17 10:00 Folic Acid PO 1 mg DAILY TOREY Administration Gabapentin 300 mg 09/16/17 18:00 Neurontin PO BID TOREY Ibuprofen 400 mg 09/15/17 23:05 Motrin Tab PO Q6 PRN Pain, moderate (4-7) Mirtazapine 30 mg 09/16/17 22:00 Remeron PO HS TOREY Multivitamins 1 tab 09/16/17 10:00 09/16/17 10:00 Hexavitamin PO 1 tab DAILY TOREY Administration Nicotine 1 patch 09/16/17 10:00 09/16/17 09:59 Nicoderm Cq TD 1 patch DAILY TOREY Administration Thiamine HCl 100 mg 09/16/17 10:00 09/16/17 10:00 Vitamin B1 Tab PO 100 mg DAILY TOREY Administration Trazodone HCl 50 mg 09/15/17 23:02 Desyrel PO HS PRN Insomnia Past Psychiatric History - Past Psychiatric History Previous Treatment History: Inpatient Pertinent Medical Hx (Current Medical&Sleep Prob, Allergies): Allergies Allergy/AdvReac Type Severity Reaction Status Date / Time shellfish derived Allergy ANAPHYLAXIS Verified 09/15/17 16:17 Famotidine [Pepcid] 20 mg PO BID #60 tab 08/07/17 Gabapentin [Neurontin] 100 mg PO TID 30 Days #90 cap 09/08/17 QUEtiapine [SEROquel] 50 mg PO BID 30 Days #60 tab 09/08/17 Review of Systems - Psychiatric Psychiatric: Anxiety, Auditory Hallucinations, Depression, Difficulty Concentrating, Hallucinations, Suicidal Ideation. absent: Visual Hallucinations Mental Status Examination - Personal Presentation Personal Presentation: Looks older than stated age - Affect Affect: Depressed - Motor Activity Motor Activity: Psychomotor Agitation, Psychomotor Retardation - Reliability in Providing Information Reliability in Providing Information: Poor, due to altered mood - Speech Speech: Disorganized - Mood Mood: Depressed, Anxious - Formal Thought Process Formal Thought Process: Hallucinations, Circumstantial - Hallucinations/Delusions Hallucinations: Auditory - Cognitive Functions Orientation: Person, Place, Situation, Time Sensorium: Alert Attention/Concentration: Easily distracted Judgement: Intact, as evidence by: Insight regarding need for hospitalization Memory: Recent intact, as evidence by: Ability to recall events of the day, Remote intact, as evidenced by: Abilit to recall sig. life events - Risk Risk: Suicidal, Withdrawal, Diminished functioning - Strength & Assets Inventory Strength & Assets Inventory: Cooperative DSM 5 DX - DSM 5 DSM 5 Diagnosis: Major Depressive Disorder, severe, recurrent, w/o psychosis Alcohol Use Disorder - severe - Recommended/Plan of Treatment Treatment Recommendations and Plan of Treatment: Start Remeron 30 mg PO HS Neurontin 300 mg PO BID Clonidine 0.1 mg PO Q4H PRN Desyrel 50 mg PO HS PRN Folic Acid 1 mg PO daily Thiamine 100 mg PO daily Multivitamin All risks, benefits and alternatives of the meds discussed, and the pt agreed and understood. Attend groups and activities Individual therapy daily Psychoeducation and support daily Encourage compliance with meds and after care Refer to outpatient program Teach healthy lifestyle methods, i.e. diet, exercise, meditation Smoking cessation and patch if needed 32 min Projected ELOS: 3-4 days - Smoking Cessation Smoking Cessation Initiated: Yes
[2017-09-17] MEDS: Multiple Vitamins Tab PO SCH (09:19)
--- NOTE | 2017-09-17 12:46 | PCM.PYCHPN ---
Psychiatric Progress Note - Psychiatric Progress Note Patient seen today, length of contact: 16 min Patient Chief Complaint: "I'm not well" Problems Identified/Issues Discussed: The pt is seen, chart reviewed, case discussed with staff. The pt is compliant with medications and reports no side-effects. Symptoms are improving but needs more time to stabilize. After care discussed, support and psychoeducation given. Medication Change: Yes Medical Record Reviewed: Yes Mental Status Examination - Cognitive Function Orientation: Person, Place, Situation, Time Memory: Intact Attention: WNL Concentration: Poor Association: WNL Fund of Knowledge: WNL - Mood Mood: Depressed, Anxious - Affect Affect: Constricted, Depressed - Speech Speech: Appropriate - Formal Thought Process Formal Thought Process: No Impairment - Suicidal Ideation Suicidal Ideation: No - Homicidal Ideation Homicidal Ideation: No Goal/Treatment Plan - Goal/Treatment Plan Need for Continued Stay: Discharge may exacerbated symptoms, Severe functional impairment Progress Toward Problem(s) and Goals/Treatment Plan: Remeron 30 mg PO HS Neurontin 300 mg PO TID now Atarax 50 q6h PRN Clonidine 0.1 mg PO Q4H PRN Desyrel 50 mg PO HS PRN Folic Acid 1 mg PO daily Thiamine 100 mg PO daily Multivitamin All risks, benefits and alternatives of the meds discussed, and the pt agreed and understood. Attend groups and activities Individual therapy daily Psychoeducation and support daily Encourage compliance with meds and after care Refer to outpatient program Teach healthy lifestyle methods, i.e. diet, exercise, meditation Smoking cessation and patch if needed
[2017-09-18] MEDS: Multiple Vitamins Tab PO SCH (09:33)
--- NOTE | 2017-09-18 13:39 | PCM.PYCHPN ---
Psychiatric Progress Note - Psychiatric Progress Note Patient seen today, length of contact: 16 min Patient Chief Complaint: "I'm still depressed" Problems Identified/Issues Discussed: The pt is seen, chart reviewed, case discussed with staff. Support given, CBT and [place] used briefly No new symptoms reported, improving slowly and needs more time No SEs from medications, risks discussed. After care discussed - interested in traditional rehabs Medication Change: Yes (add inderal for anxiety) Medical Record Reviewed: Yes Mental Status Examination - Cognitive Function Orientation: Person, Place, Situation, Time Memory: Intact Attention: WNL Concentration: Poor Association: WNL Fund of Knowledge: WNL - Mood Mood: Depressed, Anxious - Affect Affect: Constricted, Depressed - Speech Speech: Appropriate - Formal Thought Process Formal Thought Process: No Impairment - Suicidal Ideation Suicidal Ideation: No - Homicidal Ideation Homicidal Ideation: No Goal/Treatment Plan - Goal/Treatment Plan Need for Continued Stay: Discharge may exacerbated symptoms, Severe functional impairment Progress Toward Problem(s) and Goals/Treatment Plan: Remeron 30 mg PO HS Neurontin 300 mg PO TID now Atarax 50 q6h PRN Clonidine 0.1 mg PO Q4H PRN Desyrel 50 mg PO HS PRN Folic Acid 1 mg PO daily Thiamine 100 mg PO daily Multivitamin All risks, benefits and alternatives of the meds discussed, and the pt agreed and understood. Attend groups and activities Individual therapy daily Psychoeducation and support daily Encourage compliance with meds and after care Refer to outpatient program Teach healthy lifestyle methods, i.e. diet, exercise, meditation Smoking cessation and patch if needed Estimated Date of D/C: 09/21/17
[2017-09-19] MEDS: Multiple Vitamins Tab PO SCH (09:05)
--- NOTE | 2017-09-19 16:35 | PCM.PYCHPN ---
Psychiatric Progress Note - Psychiatric Progress Note Patient seen today, length of contact: 16 min Patient Chief Complaint: "I'm feeling Good" Problems Identified/Issues Discussed: Patient was seen. Chart was reviewed important content noted. Nurse input received. Patient has no new complaints. Pt stated that he is feeling good. He denied any withdrawal symptoms. No events overnight. Patient slept well and is eating well. Patient denies any depressive symptoms. Denies suicidal or homicidal ideations. Patient does not report hallucinations. No delusions elicited. No paranoia elicited. Patient has remained in good clinical and behavioral control. Symptoms are improving, but needs more time to stabilize. Medication Change: No Medical Record Reviewed: Yes Mental Status Examination - Cognitive Function Orientation: Person, Place, Situation, Time Memory: Intact Attention: WNL Concentration: Poor Association: WNL Fund of Knowledge: WNL - Mood Mood: Depressed, Anxious - Affect Affect: Constricted, Depressed - Speech Speech: Appropriate - Formal Thought Process Formal Thought Process: No Impairment - Suicidal Ideation Suicidal Ideation: No - Homicidal Ideation Homicidal Ideation: No Goal/Treatment Plan - Goal/Treatment Plan Need for Continued Stay: Discharge may exacerbated symptoms, Severe functional impairment Estimated Date of D/C: 09/21/17
[2017-09-20] MEDS: Multiple Vitamins Tab PO SCH (09:17)
--- NOTE | 2017-09-20 17:11 | PCM.PYCHPN ---
Psychiatric Progress Note - Psychiatric Progress Note Patient seen today, length of contact: 16 min Patient Chief Complaint: "Everything is good" Problems Identified/Issues Discussed: Patient was seen. Chart was reviewed important content noted. Nurse input received. pt is compliant with his meds and denied side effects. Patient has no new complaints. Pt stated that he is feeling good. He denied any withdrawal symptoms. No events overnight. Patient slept well and is eating well. Patient denies any depressive symptoms. Denies suicidal or homicidal ideations. Patient does not report hallucinations. No delusions elicited. No paranoia elicited. Patient has remained in good clinical and behavioral control. Symptoms are improving, but needs more time to stabilize. Medication Change: No Medical Record Reviewed: Yes Mental Status Examination - Cognitive Function Orientation: Person, Place, Situation, Time Memory: Intact Attention: WNL Concentration: Poor Association: WNL Fund of Knowledge: WNL Decription of patient's judgement and insights: good/good - Mood Mood: Anxious - Affect Affect: Constricted, Depressed - Speech Speech: Appropriate - Formal Thought Process Formal Thought Process: No Impairment Psychotic Thoughts and Behaviors: denied - Suicidal Ideation Suicidal Ideation: No Plan: denied - Homicidal Ideation Homicidal Ideation: No Plan: denied Goal/Treatment Plan - Goal/Treatment Plan Need for Continued Stay: Discharge may exacerbated symptoms, Severe functional impairment Progress Toward Problem(s) and Goals/Treatment Plan: Continue current treatment and medication as per primary team. THerapy in milieu. Psychoeducation provided Mmedication benefits and side effects discussed with the pt. he verbalized understanding and agree with the treatment plan. Estimated Date of D/C: 09/21/17
[2017-09-21] MEDS: Multiple Vitamins Tab PO SCH (09:56)
--- NOTE | 2017-09-21 14:26 | PCM.PYCHPN ---
Psychiatric Progress Note - Psychiatric Progress Note Patient seen today, length of contact: 16 min Patient Chief Complaint: "I'm still depressed" Problems Identified/Issues Discussed: The pt is seen, chart reviewed, case discussed with staff. The pt is compliant with medications and reports no side-effects. Symptoms are improving but needs more time to stabilize. After care discussed, support and psychoeducation given. Somewhat depressed Medication Change: No Medical Record Reviewed: Yes Mental Status Examination - Cognitive Function Orientation: Person, Place, Situation, Time Memory: Intact Attention: WNL Concentration: Poor Association: WNL Fund of Knowledge: WNL - Mood Mood: Anxious - Affect Affect: Constricted, Depressed - Speech Speech: Appropriate - Formal Thought Process Formal Thought Process: No Impairment - Suicidal Ideation Suicidal Ideation: No - Homicidal Ideation Homicidal Ideation: No Goal/Treatment Plan - Goal/Treatment Plan Need for Continued Stay: Discharge may exacerbated symptoms, Severe functional impairment Progress Toward Problem(s) and Goals/Treatment Plan: Remeron 30 mg PO HS Neurontin 300 mg PO TID now Atarax 50 q6h PRN Clonidine 0.1 mg PO Q4H PRN Desyrel 50 mg PO HS PRN Folic Acid 1 mg PO daily Thiamine 100 mg PO daily Multivitamin All risks, benefits and alternatives of the meds discussed, and the pt agreed and understood. Attend groups and activities Individual therapy daily Psychoeducation and support daily Encourage compliance with meds and after care Refer to outpatient program Teach healthy lifestyle methods, i.e. diet, exercise, meditation Smoking cessation and patch if needed Estimated Date of D/C: 09/22/17 If changed, why: Unsafe to d/c today
[2017-09-22 06:27] VITALS: TEMP 98.1
[2017-09-22] MEDS: Multiple Vitamins Tab PO SCH (09:45)
--- NOTE | 2017-09-22 14:03 | PCM.PYCHPN ---
Psychiatric Progress Note - Psychiatric Progress Note Patient seen today, length of contact: 16 min Patient Chief Complaint: "I'm OK" Problems Identified/Issues Discussed: The pt is seen, chart reviewed, case discussed with staff. Support and psychoeducation given, CBT and [place] used briefly No new symptoms reported, improving slowly and needs more time No SEs from medications, risks discussed. After care discussed Medication Change: No Medical Record Reviewed: Yes Mental Status Examination - Cognitive Function Orientation: Person, Place, Situation, Time Memory: Intact Attention: WNL Concentration: Poor Association: WNL Fund of Knowledge: WNL - Mood Mood: Anxious - Affect Affect: Constricted, Depressed - Speech Speech: Appropriate - Formal Thought Process Formal Thought Process: No Impairment - Suicidal Ideation Suicidal Ideation: No - Homicidal Ideation Homicidal Ideation: No Goal/Treatment Plan - Goal/Treatment Plan Need for Continued Stay: Discharge may exacerbated symptoms, Severe functional impairment Progress Toward Problem(s) and Goals/Treatment Plan: Remeron 30 mg PO HS Neurontin 300 mg PO TID now Atarax 50 q6h PRN Clonidine 0.1 mg PO Q4H PRN Desyrel 50 mg PO HS PRN Folic Acid 1 mg PO daily Thiamine 100 mg PO daily Multivitamin All risks, benefits and alternatives of the meds discussed, and the pt agreed and understood. Attend groups and activities Individual therapy daily Psychoeducation and support daily Encourage compliance with meds and after care Refer to outpatient program Teach healthy lifestyle methods, i.e. diet, exercise, meditation Smoking cessation and patch if needed Estimated Date of D/C: 09/22/17
[2017-09-23 06:54] VITALS: PULSE 69; RESP 19
[2017-09-23] MEDS: Multiple Vitamins Tab PO SCH (09:03)
[2017-09-23 09:04] VITALS: BP 100/75
--- NOTE | 2017-09-23 10:28 | PCM.PYCHDC ---
Mental Status Examination - Mental Status Examination Orientation: Person Discharge Summary - Discharge Note Consultations:: List each consultation separately and include: 1. Reason for request. 2. Findings. 3. Follow-up Summary of Hospital Course include:: 1. Description of specific treatment plan utilized for patients during their course of treatmen. 2. Summarize the time- course for resolution of acute symptoms and/or regressed behaviors. 3. Describe issues identified and worked on during hospitalization. 4. Describe medication utilized. 5. Describe medical problems identified and treated. 6. Reassessment of suicide risk Summary of Hospital Course: He is seen, chart reviewed and case discussed He is well-known from previous admissions. Patient is a 42 year old male who lives alone, is homeless and unemployed. Patient has a history of depression with suicidal ideation. Patient denies any past suicide attempts, but he said he thought about jumping into traffic. Patient states that he has been depressed for the past two years. He said he has had loss of family members which have contributed to his depression. Patient states he is depressed, anxious, has racing thoughts and difficulty concentrating, is paranoid, and is hearing voices that tell him to hurt himself at times. Patient denies visual hallucinations. Patient denies drug use, but states he has been drinking 0.5-1 pint of vodka/ day for the past two years. Patient has smoked 2 cigarettes/day for the past 3 years. Patient currently complains of withdrawal symptoms of anxiety and hand tremor. Patient has had many past psychiatric hospitalizations, the most recent one this past year. Patient has been to detox twice, the most recent this past year. Patient's longest period of sobriety was 3 months. Patient recently left [facility] after a week of stay and drank, and then came here. he says he liked it a lot but he needed to get his psych meds. Patient does not currently see a psychiatrist, and states he stopped using his medications when his insurance . PMH: Denies Family Hx: Mother has stage 4 breast cancer; no psych history in family Accepted by [facility] but no beds. - Diagnosis (1) Alcohol dependence Current Visit: No Status: Acute (2) Depression Current Visit: No Status: Acute - Final Diagnosis (DSM 5) Condition upon Discharge: STABLE Disposition: HOME/ ROUTINE Follow-up Treatment Plan: Remeron 30 mg PO HS Neurontin 300 mg PO TID now Atarax 50 q6h PRN Clonidine 0.1 mg PO Q4H PRN Desyrel 50 mg PO HS PRN Folic Acid 1 mg PO daily Thiamine 100 mg PO daily Multivitamin All risks, benefits and alternatives of the meds discussed, and the pt agreed and understood. Attend groups and activities Individual therapy daily Psychoeducation and support daily Encourage compliance with meds and after care Refer to outpatient program Teach healthy lifestyle methods, i.e. diet, exercise, meditation Smoking cessation and patch if needed Prescriptions/Medication Reconciliation: Gabapentin [Neurontin] 300 mg PO TID #45 cap Mirtazapine [Remeron] 30 mg PO HS #14 tab Propranolol [Inderal] 20 mg PO TID #45 tab traZODone [Desyrel] 50 mg PO HS PRN #14 tab PRN Reason: Insomnia
== END 2017-09-23 13:00 | disposition home or self-care (01) | DRG 885 ==
LOC: C.ER 15:35 → C.5E 19:51
PROC: GZHZZZZ Group Psychotherapy (ICD-10-PCS; principal; 2017-09-15)
PROC: GZ58ZZZ Individual Psychotherapy, Cognitive-Behavioral (ICD-10-PCS; 2017-09-15)
PROC: GZ56ZZZ Individual Psychotherapy, Supportive (ICD-10-PCS; 2017-09-15)
DX: F33.2 Major depressive disorder, recurrent severe without psychotic features (principal); R45.851 Suicidal ideations; F10.20 Alcohol dependence, uncomplicated; F20.0 Paranoid schizophrenia; Y90.4 Blood alcohol level of 80-99 mg/100 ml; F17.210 Nicotine dependence, cigarettes, uncomplicated; G47.00 Insomnia, unspecified; J44.9 Chronic obstructive pulmonary disease, unspecified; Z59.0 Homelessness; Z80.3 Family history of malignant neoplasm of breast

== ENCOUNTER 2017-10-18 11:00 | Emergency (ER) | payer MEDICAID ==
[2017-10-18 11:00] VITALS: BMI 31.1
[2017-10-18 12:38] VITALS: BP 126/73; PULSE 78; RESP 18; TEMP 98; O2SAT 98
--- NOTE | 2017-10-18 13:00 | C.PDOC ---
History Of Present Illness 42 year old homeless male with a history of depression and alcohol dependence presents to the ED complaining of depression and requesting detox. Patient was recently admitted to [facility] for depression, and recently seen at [facility] for same complaint. Since then, patient has been drinking heavily. In addition, has been complaining of auditory hallucinations, insomnia, and lack of appetite. Denies drug use and visual hallucinations. Time Seen by Provider: 10/18/17 11:08 Chief Complaint (Nursing): Substance Abuse History Per: Patient History/Exam Limitations: no limitations Onset/Duration Of Symptoms: Days Current Symptoms Are (Timing): Still Present Past Medical History Reviewed: Historical Data, Nursing Documentation, Vital Signs Vital Signs: Last Vital Signs Temp 98 F 10/18/17 12:38 Pulse 78 10/18/17 12:38 Resp 18 10/18/17 12:38 BP 126/73 10/18/17 12:38 Pulse Ox 98 10/18/17 13:09 - Medical History PMH: Anxiety, Arthritis, Asthma, Back Problems, Bipolar Disorder, COPD, Depression, Pancreatitis, Paranoia, Schizophrenia - [facility] Procedures DETOXIFICATION SERVICES FOR SUBSTANCE ABUSE TREATMENT (08/07/17) GROUP LIFE SKILLS WORKER FOR SUBSTANCE ABUSE TREATMENT, PSYCHOEDUCATION (06/26/16) GROUP PSYCHOTHERAPY (09/15/17) INDIV PSYCHOTHERAPY FOR SUBSTANCE ABUSE TREATMENT, SUPPORT (09/02/17) INDIV PSYCHOTHERAPY FOR SUBSTANCE ABUSE, COGNITIV BEHAVIORAL (07/31/17) INDIV PSYCHOTHERAPY FOR SUBSTANCE ABUSE, MOTIVATION ENHANCE (09/02/17) INDIVIDUAL PSYCHOTHERAPY, COGNITIVE-BEHAVIORAL (09/15/17) INDIVIDUAL PSYCHOTHERAPY, SUPPORTIVE (09/15/17) INJECT/INFUSE NEC (10/10/14) MEDICATION MANAGEMENT (04/23/17) NEBULIZER THERAPY (02/16/14) Family History: States: No Known Family Hx - Social History Hx Tobacco Use: Yes (light smoker) Hx Alcohol Use: Yes Hx Substance Use: No - Immunization History Hx Tetanus Toxoid Vaccination: Yes Hx Influenza Vaccination: Yes Hx Pneumococcal Vaccination: Yes Review Of Systems Constitutional: Negative for: Fever, Chills Cardiovascular: Negative for: Chest Pain Respiratory: Negative for: Shortness of Breath Gastrointestinal: Negative for: Nausea, Vomiting Genitourinary: Negative for: Dysuria Musculoskeletal: Negative for: Back Pain Neurological: Negative for: Weakness, Numbness, Headache, Dizziness Psych: Positive for: Depression, Suicidal ideation. Negative for: Withdrawal Physical Exam - Physical Exam Appears: Non-toxic, Other (anxious) Skin: Normal Color, Warm, Dry, No Rash Head: Atraumatic, Normacephalic Eye(s): bilateral: Normal Inspection, EOMI Nose: Normal Oral Mucosa: Moist Lips: Normal Appearing Neck: Normal ROM Chest: Symmetrical Cardiovascular: Rhythm Regular Respiratory: No Accessory Muscle Use Extremity: Normal ROM, No Deformity, No Swelling Neurological/Psych: Oriented x3, Normal Speech ED Course And Treatment O2 Sat by Pulse Oximetry: 98 Medical Decision Making Medical Decision Making: Prior records reviewed patient evaluated in [facility] earlier today for alcohol intoxication, labs drawn and patient discharged. Patient presents to ER today requesting detox and complains of anxiety. Call Crisis and there are no detox beds available. Librium PO ordered. Vitals improved. Patient given number to call for detox and list of other facilities Disposition - Disposition Referrals: [facility] [Outside] Disposition: HOME/ ROUTINE Disposition Time: 12:40 Condition: GOOD Instructions: Alcohol Abuse and Alcoholism (DC) Forms: [employer] (Albanian) - POA Present On Arrival: None - Clinical Impression Clinical Impression: Alcohol abuse with intoxication - Scribe Statement The provider has reviewed the documentation as recorded by the Scribe (Shae Apodaca) All medical record entries made by the Scribe were at my direction and personally dictated by me. I have reviewed the chart and agree that the record accurately reflects my personal performance of the history, physical exam, medical decision making, and the department course for this patient. I have also personally directed, reviewed, and agree with the discharge instructions and disposition.
== END 2017-10-18 12:42 | disposition home or self-care (01) ==
LOC: C.ER 11:00
DX: F10.129 Alcohol abuse with intoxication, unspecified (principal); F20.9 Schizophrenia, unspecified; Z59.0 Homelessness; F17.200 Nicotine dependence, unspecified, uncomplicated

== ENCOUNTER 2017-10-19 19:05 | Emergency (ER) | payer MEDICAID ==
[2017-10-19 19:05] VITALS: BMI 31.1
[2017-10-19 19:24] VITALS: RESP 16; O2SAT 97
--- NOTE | 2017-10-19 19:46 | C.PDOC ---
History Of Present Illness 42 y/o male presents to the ED requesting detox from alcohol. Patient admits to drinking today. Otherwise he denies any suicidal/homicidal ideation, fever, shakes, vomiting, or abdominal pain. No physical complaints offered at this time. Time Seen by Provider: 10/19/17 19:46 Chief Complaint (Nursing): Substance Abuse History Per: Patient History/Exam Limitations: no limitations Onset/Duration Of Symptoms: Days Current Symptoms Are (Timing): Still Present Suicide/Self Injury Attempted (Context): None Modifying Factor(s): Alcohol Severity: None Pain Scale Rating Of: 0 Involuntary Hold By: None Recent travel outside of the [place]: No Past Medical History Reviewed: Historical Data, Nursing Documentation, Vital Signs Vital Signs: Last Vital Signs Temp 99.3 F 10/19/17 19:20 Pulse 133 H 10/19/17 19:20 Resp 16 10/19/17 19:20 BP 125/95 H 10/19/17 19:20 Pulse Ox 97 10/19/17 20:15 - Medical History PMH: Anxiety, Arthritis, Asthma, Back Problems, Bipolar Disorder, COPD, Depression, Pancreatitis, Paranoia, Schizophrenia Denies: HIV, HTN, Chronic Kidney Disease, Seizures, Sexually Transmitted Disease - [facility] Procedures DETOXIFICATION SERVICES FOR SUBSTANCE ABUSE TREATMENT (08/07/17) GROUP AGENCY DIRECTOR FOR SUBSTANCE ABUSE TREATMENT, PSYCHOEDUCATION (06/26/16) GROUP PSYCHOTHERAPY (09/15/17) INDIV PSYCHOTHERAPY FOR SUBSTANCE ABUSE TREATMENT, SUPPORT (09/02/17) INDIV PSYCHOTHERAPY FOR SUBSTANCE ABUSE, COGNITIV BEHAVIORAL (07/31/17) INDIV PSYCHOTHERAPY FOR SUBSTANCE ABUSE, MOTIVATION ENHANCE (09/02/17) INDIVIDUAL PSYCHOTHERAPY, COGNITIVE-BEHAVIORAL (09/15/17) INDIVIDUAL PSYCHOTHERAPY, SUPPORTIVE (09/15/17) INJECT/INFUSE NEC (10/10/14) MEDICATION MANAGEMENT (04/23/17) NEBULIZER THERAPY (02/16/14) Family History: States: No Known Family Hx - Social History Hx Tobacco Use: Yes (light smoker) Hx Alcohol Use: Yes Hx Substance Use: No - Immunization History Hx Tetanus Toxoid Vaccination: Yes Hx Influenza Vaccination: Yes Hx Pneumococcal Vaccination: Yes Review Of Systems Constitutional: Negative for: Fever, Chills Gastrointestinal: Negative for: Vomiting, Abdominal Pain Psych: Negative for: Suicidal ideation, Withdrawal Physical Exam - Physical Exam Appears: No Acute Distress Skin: Warm, Dry Head: Normacephalic Eye(s): bilateral: Normal Inspection Oral Mucosa: Moist Neck: Trachea Midline, Supple Chest: Symmetrical Respiratory: No Accessory Muscle Use Extremity: Bilateral: Atraumatic, Normal Color And Temperature, Normal ROM Neurological/Psych: Oriented x3 Gait: Steady ED Course And Treatment O2 Sat by Pulse Oximetry: 97 (RA) Pulse Ox Interpretation: Normal Progress Note: Informed patient that there are no detox beds available. Information given for putpatient treatment centers and encouraged to call for pre-screen Reevaluation Time: 21:00 Reassessment Condition: Improved Disposition Counseled Patient/Family Regarding: Studies Performed, Diagnosis, Need For Followup - Disposition Referrals: [facility] [Outside] Disposition: HOME/ ROUTINE Disposition Time: 19:46 Condition: FAIR Instructions: Alcohol Abuse and Alcoholism (DC) Forms: [employer] [facility] (Algerian) - Clinical Impression Clinical Impression: Alcohol use - Scribe Statement The provider has reviewed the documentation as recorded by the Scribe (Maral Yao) Provider Attestation: All medical record entries made by the Scribe were at my direction and personally dictated by me. I have reviewed the chart and agree that the record accurately reflects my personal performance of the history, physical exam, medical decision making, and the department course for this patient. I have also personally directed, reviewed, and agree with the discharge instructions and disposition.
[2017-10-19 21:06] VITALS: BP 119/74; PULSE 107; TEMP 98.2
== END 2017-10-19 21:09 | disposition home or self-care (01) ==
LOC: C.ER 19:05
DX: Z72.89 Other problems related to lifestyle (principal)

== ENCOUNTER 2017-10-21 07:11 | Emergency (ER) | payer MEDICAID ==
[2017-10-21 07:12] VITALS: BMI 31.1
[2017-10-21 07:15] VITALS: O2SAT 97
--- NOTE | 2017-10-21 07:22 | C.PDOC ---
History Of Present Illness 42 y/o male with history of multiple prior evaluations for ETOH detox presents to ED with c/o nausea and multiple episodes of watery black and green diarrhea for 2 days. Patient also c/o dehydration and generalized weakness, admits to last drink 2 days ago. Patient states "I been trying to detox on my own" and denies fever, chills, seizure, drug use or any other complaints at this time. Recently admitted to [facility] for depression, and recently seen at [facility] for same complaint. MULT RECENT ER EVAL REQUESTING ETOH DETOX. Recently admitted to [facility] for depression, and recently seen at [facility] for same complaint Time Seen by Provider: 10/21/17 07:20 Chief Complaint (Nursing): GI Problem History Per: Patient History/Exam Limitations: no limitations Onset/Duration Of Symptoms: Days Current Symptoms Are (Timing): Still Present Associated Symptoms: Nausea, Diarrhea Past Medical History Reviewed: Historical Data, Nursing Documentation, Vital Signs Vital Signs: Last Vital Signs Temp 98.7 F 10/21/17 07:14 Pulse 82 10/21/17 10:00 Resp 18 10/21/17 10:00 BP 138/89 10/21/17 10:00 Pulse Ox 97 10/21/17 10:08 - Medical History PMH: Anxiety, Arthritis, Asthma, Back Problems, Bipolar Disorder, COPD, Depression, Pancreatitis, Paranoia, Schizophrenia Surgical History: No Surg Hx - [facility] Procedures DETOXIFICATION SERVICES FOR SUBSTANCE ABUSE TREATMENT (08/07/17) GROUP DOCK LOADER FOR SUBSTANCE ABUSE TREATMENT, PSYCHOEDUCATION (06/26/16) GROUP PSYCHOTHERAPY (09/15/17) INDIV PSYCHOTHERAPY FOR SUBSTANCE ABUSE TREATMENT, SUPPORT (09/02/17) INDIV PSYCHOTHERAPY FOR SUBSTANCE ABUSE, COGNITIV BEHAVIORAL (07/31/17) INDIV PSYCHOTHERAPY FOR SUBSTANCE ABUSE, MOTIVATION ENHANCE (09/02/17) INDIVIDUAL PSYCHOTHERAPY, COGNITIVE-BEHAVIORAL (09/15/17) INDIVIDUAL PSYCHOTHERAPY, SUPPORTIVE (09/15/17) INJECT/INFUSE NEC (10/10/14) MEDICATION MANAGEMENT (04/23/17) NEBULIZER THERAPY (02/16/14) Family History: States: No Known Family Hx - Social History Hx Tobacco Use: Yes (light smoker) Hx Alcohol Use: Yes Hx Substance Use: No - Immunization History Hx Tetanus Toxoid Vaccination: No Hx Influenza Vaccination: Yes Hx Pneumococcal Vaccination: Yes Review Of Systems Constitutional: Negative for: Fever, Chills Gastrointestinal: Positive for: Nausea, Diarrhea. Negative for: Vomiting, Abdominal Pain Skin: Negative for: Rash Neurological: Positive for: Weakness Physical Exam - Physical Exam Appears: Non-toxic, Other (In moderate distress, Calm. Cooperative) Skin: Warm, Dry, No Rash, Other (poor turgor) Head: Atraumatic, Normacephalic Eye(s): bilateral: PERRL, EOMI Oral Mucosa: Dry Neck: Normal ROM, Supple Cardiovascular: Rhythm Regular Respiratory: Normal Breath Sounds, No Rales, No Rhonchi, No Wheezing Gastrointestinal/Abdominal: Soft, Tenderness (non focal, generalized), No Guarding, No Rebound Neurological/Psych: Oriented x3, Normal Speech, Normal Cognition, Other (+hand tremors. No acute intox, No psychosis. No focal deficits) Gait: Steady ED Course And Treatment - Laboratory Results Result Diagrams: 10/21/17 07:58 10/21/17 07:58 ECG: Interpreted By Me, Viewed By Me ECG Rhythm: Sinus Rhythm Rate From EC (BPM) O2 Sat by Pulse Oximetry: 97 (RA) Pulse Ox Interpretation: Normal Progress - Re-Evaluation Re-evaluation Note: 10/21/17 10:08 HR 86 APPEARS IMPROVED FROM PRIOR EXAM. PS FEELS BETTER. SP IVF, NO UO SINCE IVF. NO RECUR DIARRHEA. REPEAT IVF PENDING UO, DC 10/21/17 11:29 IMPROVED. VSS - Data Reviewed Data Reviewed: Lab, EKG, Old records Disposition Counseled Patient/Family Regarding: Studies Performed, Diagnosis, Need For Followup, Rx Given - Disposition Referrals: [facility] [Outside] [facility] [Outside] Disposition: HOME/ ROUTINE Disposition Time: 11:30 Condition: IMPROVED Prescriptions: Ondansetron ODT [Zofran ODT] 4 mg PO TID PRN #12 odt PRN Reason: Nausea/Vomiting Instructions: Diarrhea and Traveler's Diarrhea, Adult (DC), Alcohol Withdrawal (DC) Forms: [employer] [facility] (Occitan) - Clinical Impression Clinical Impression: Dehydration, Alcohol withdrawal, Diarrhea - Scribe Statement The provider has reviewed the documentation as recorded by the Kennaibcarter Barber All medical record entries made by the Scribe were at my direction and personally dictated by me. I have reviewed the chart and agree that the record accurately reflects my personal performance of the history, physical exam, medical decision making, and the department course for this patient. I have also personally directed, reviewed, and agree with the discharge instructions and disposition.
[2017-10-21] MEDS ORDERED: Atropine-Diphenoxylate 0.025-2.5 mg Tab PO STA (07:47)
[2017-10-21] MEDS ORDERED: Atropine-Diphenoxylate 0.025-2.5 mg Tab ONE (08:00)
[2017-10-21] MEDS ORDERED: Sodium Chloride 0.9% 1,000 ML ONE ×2 (08:01→10:05)
[2017-10-21 08:03] LABS: BASO # 0.1 K/uL (0.0-0.2); BASO % 1.1 % (0.0-2.0); EOS # 0.1 K/uL (0.0-0.7); EOS % 1.4 % (0.0-4.0); HEMOGLOBIN 15.7 g/dL (12.0-18.0); LYMPH # 1.7 K/uL (1.0-4.3); LYMPH % 21.6 % (20.0-40.0); MEAN CELL VOLUME 90.9 fL (80.0-94.0); MEAN CORPUSCULAR HEMOGLOBIN 32.1 pg (27.0-31.0); MEAN CORPUSCULAR HGB CONC 35.3 g/dL (33.0-37.0); MEAN PLATELET VOLUME 7.9 fL (7.2-11.7); MONO # 0.8 K/uL (0.0-0.8); NEUT % 64.9 % (50.0-75.0); RBC 4.88 Mil/uL (4.40-5.90); RED CELL DISTRIBUTION WIDTH 13.6 % (11.5-14.5); WHITE BLOOD COUNT 7.7 K/uL (4.8-10.8)
[2017-10-21 08:18] LABS: ALB/GLOB RATIO 1.5 (1.0-2.1); ALBUMIN 4.8 g/dL (3.5-5.0); ALT/SGPT 37 U/L (21-72); AST/SGOT 41 U/L (17-59); BLOOD UREA NITROGEN 14 mg/dL (9-20); CALCIUM 9.6 mg/dl (8.6-10.4); GFR AFRICAN-AMERICAN > 60; GFR NON-AFRICAN AMERICAN > 60; LIPASE 128 U/L (23-300)
[2017-10-21 08:22] LABS: BARBITURATES, UR NEGATIVE (NEGATIVE); OPIATES, UR NEGATIVE (NEGATIVE); PHENCYCLIDINE, UR NEGATIVE (NEGATIVE)
[2017-10-21 08:25] LABS: BENZODIAZEPINES, UR POSITIVE (NEGATIVE)
[2017-10-21 12:19] VITALS: BP 107/71; PULSE 79; RESP 16; TEMP 97
--- NOTE | 2017-10-22 15:35 | CARD ---
APPROVED REPORT EKG Measurement Heart [id number] OR [id number] <Conclusion> Normal sinus rhythm Normal ECG
== END 2017-10-21 12:18 | disposition home or self-care (01) ==
LOC: C.ER 07:11
DX: E86.0 Dehydration (principal); F10.239 Alcohol dependence with withdrawal, unspecified; Y90.9 Presence of alcohol in blood, level not specified; R19.7 Diarrhea, unspecified
CPT/HCPCS: 80053; 80320; 80324; 80345; 80346; 80349; 80353; 80358; 80361; 83690; 83992; 85025; 93005; 96361; 96374; 96375; 99285; C9113; J2405; J7030

== ENCOUNTER 2017-10-24 19:14 | Inpatient (IN) | payer MEDICAID ==
[2017-10-24 19:14] VITALS: BMI 31.1
[2017-10-24] MEDS ORDERED: Tdap Vaccine 0.5 ml Vial (10-64 yrs) IM ONE ×2 (19:42→19:56)
--- NOTE | 2017-10-24 20:02 | C.PDOC ---
History Of Present Illness 42 y/o male with a history of bipolar disorder, schizophrenia, and depression, presents to the ED with suicidal ideation for 2 days. Patient reported he attempted to cut right wrist yesterday and he drank a lot of alcohol today. He denies any fever, chills, chest pain, shortness of breath or vomiting. Unknown tetanus shot. PMD: None Time Seen by Provider: 10/24/17 19:35 Chief Complaint (Nursing): Substance Abuse History Per: Patient History/Exam Limitations: no limitations Onset/Duration Of Symptoms: Days Current Symptoms Are (Timing): Still Present Suicide/Self Injury Attempted (Context): Cut Wrists Modifying Factor(s): Alcohol Associated Symptoms: Depression, Suicidal Thoughts, Suicidal Plan Past Medical History Reviewed: Historical Data, Nursing Documentation, Vital Signs Vital Signs: Last Vital Signs Temp 98.3 F 10/24/17 19:27 Pulse 99 H 10/24/17 19:27 Resp 20 10/24/17 19:27 BP 149/96 H 10/24/17 19:27 Pulse Ox 99 10/24/17 21:43 - Medical History PMH: Anxiety, Arthritis, Asthma, Back Problems, Bipolar Disorder, COPD, Depression, Pancreatitis, Paranoia, Schizophrenia Denies: HIV, HTN, Chronic Kidney Disease, Seizures, Sexually Transmitted Disease Surgical History: No Surg Hx - [facility] Procedures DETOXIFICATION SERVICES FOR SUBSTANCE ABUSE TREATMENT (08/07/17) GROUP LIFT SUPERVISOR FOR SUBSTANCE ABUSE TREATMENT, PSYCHOEDUCATION (06/26/16) GROUP PSYCHOTHERAPY (09/15/17) INDIV PSYCHOTHERAPY FOR SUBSTANCE ABUSE TREATMENT, SUPPORT (09/02/17) INDIV PSYCHOTHERAPY FOR SUBSTANCE ABUSE, COGNITIV BEHAVIORAL (07/31/17) INDIV PSYCHOTHERAPY FOR SUBSTANCE ABUSE, MOTIVATION ENHANCE (09/02/17) INDIVIDUAL PSYCHOTHERAPY, COGNITIVE-BEHAVIORAL (09/15/17) INDIVIDUAL PSYCHOTHERAPY, SUPPORTIVE (09/15/17) INJECT/INFUSE NEC (10/10/14) MEDICATION MANAGEMENT (04/23/17) NEBULIZER THERAPY (02/16/14) Family History: States: No Known Family Hx Other Family History: Cancer - Social History Hx Tobacco Use: Yes (light smoker) Hx Alcohol Use: Yes Hx Substance Use: No - Immunization History Hx Tetanus Toxoid Vaccination: No Hx Influenza Vaccination: Yes Hx Pneumococcal Vaccination: Yes Review Of Systems Except As Marked, All Systems Reviewed And Found Negative. Constitutional: Negative for: Fever, Chills Cardiovascular: Negative for: Chest Pain Respiratory: Negative for: Shortness of Breath Gastrointestinal: Negative for: Vomiting Skin: Positive for: Other (Abrasion to right wrist) Physical Exam - Physical Exam Additional Physical Exam Comments: Constitutional: No acute distress. Head: Normocephalic. Atraumatic. Eyes: PERRL. ENT: Moist mucous membranes. Neck: Supple. Cardiovascular: Regular rate. Radial pulse 2+ bilaterally. Chest: No tenderness. Respiratory: Clear to auscultation bilaterally. GI: Soft. Nontender. Nondistended. Back: No CVA tenderness. Musculoskeletal: No tenderness or swelling of extremities. Skin: No rash. Superficial abrasion to right wrist. No actual laceration. Lipoma to posterior neck and thigh Neurologic: Alert, no focal deficit. ED Course And Treatment - Laboratory Results Result Diagrams: 10/24/17 20:04 10/24/17 20:04 O2 Sat by Pulse Oximetry: 99 (RA) Pulse Ox Interpretation: Normal Medical Decision Making Medical Decision Making: Impression: Suicidal Ideation Orders: 19:43 Tetanus shot updated. Patient medically clear for crisis. 21:40 Patient states he is not longer having suicidal ideation after the nurse offered him a detox bed. He now wants a substance detox. 1:1 was discontinued. Disposition - Disposition Disposition: HOSPITALIZED Disposition Time: 20:27 Condition: FAIR Forms: [facility] (Malian) - Clinical Impression Clinical Impression: Alcohol use disorder, severe, dependence - Scribe Statement The provider has reviewed the documentation as recorded by the Kennaibcarter Isaac All medical record entries made by the Lenka were at my direction and personally dictated by me. I have reviewed the chart and agree that the record accurately reflects my personal performance of the history, physical exam, medical decision making, and the department course for this patient. I have also personally directed, reviewed, and agree with the discharge instructions and disposition.
[2017-10-24 20:08] LABS: BASO # 0.1 K/uL (0.0-0.2); BASO % 1.1 % (0.0-2.0); EOS # 0.2 K/uL (0.0-0.7); EOS % 1.7 % (0.0-4.0); LYMPH # 2.8 K/uL (1.0-4.3); LYMPH % 31.5 % (20.0-40.0); MEAN CELL VOLUME 90.6 fL (80.0-94.0); MEAN CORPUSCULAR HEMOGLOBIN 31.2 pg (27.0-31.0); MEAN CORPUSCULAR HGB CONC 34.4 g/dL (33.0-37.0); MEAN PLATELET VOLUME 7.6 fL (7.2-11.7); MONO # 0.7 K/uL (0.0-0.8); MONO % 7.9 % (0.0-10.0); NEUT # 5.2 K/uL (1.8-7.0); NEUT % 57.8 % (50.0-75.0); NRBC % 0.1 % (0.0-2.0); RBC 5.13 Mil/uL (4.40-5.90); RED CELL DISTRIBUTION WIDTH 13.5 % (11.5-14.5); WHITE BLOOD COUNT 8.9 K/uL (4.8-10.8)
[2017-10-24 20:22] LABS: ALB/GLOB RATIO 1.5 (1.0-2.1); ALBUMIN 4.7 g/dL (3.5-5.0); ALT/SGPT 36 U/L (21-72); AST/SGOT 26 U/L (17-59); BLOOD UREA NITROGEN 9 mg/dL (9-20); CALCIUM 9.4 mg/dl (8.6-10.4); GFR AFRICAN-AMERICAN > 60; GFR NON-AFRICAN AMERICAN > 60
[2017-10-24 20:23] LABS: URINE BILIRUBIN NEGATIVE (NEGATIVE); URINE BLOOD NEGATIVE (NEGATIVE); URINE CLARITY Clear (Clear); URINE COLOR Yellow (YELLOW); URINE GLUCOSE (UA) NORMAL (Normal); URINE LEUKOCYTE ESTERASE NEG Leu/uL (Negative); URINE PROTEIN NEGATIVE (NEGATIVE); URINE UROBILINOGEN NORMAL mg/dL (0.2-1.0)
[2017-10-24 20:25] LABS: BARBITURATES, UR NEGATIVE (NEGATIVE); OPIATES, UR NEGATIVE (NEGATIVE); PHENCYCLIDINE, UR NEGATIVE (NEGATIVE)
[2017-10-24 20:36] LABS: URINE BACTERIA RARE (<OCC)
[2017-10-24 20:39] LABS: BENZODIAZEPINES, UR POSITIVE (NEGATIVE)
--- NOTE | 2017-10-24 23:01 | PCM.BM ---
<Olamide Hilton - Last Filed: 10/24/17 22:59> Treatment Plan Problems - Problems identified on initial assessmt potiential for automonic instability related to alcohol withdrawal Date Initiated: 10/24/17 Time Initiated: 23:00 Assessment reference: NA Status: Active Treatment assets and liabiliti Patient Assests: adapts well, cooperative, self-reliant, ADL independent, physically healthy, negotiates basic needs, good past tx response, cognitively intact Patient Liabilities: poor support system, substance abuse ( ) - Milieu Protocol Maintain good personal hygiene: daily Encourage regular showers, daily Remind patient to perform daily oral care, daily Assist patient to perform ADL's Maintain personal safety: every shift Educate patient to report safety concerns to staff, every shift Monitor environment for contraband/sharps Medication safety: Monitor for expected outcome, potential side effects: every shift, Assess barriers to learning: every shift, Assess readiness for medication education: every shift <Robert Viera - Last Filed: 10/25/17 17:53> - Diagnosis (1) Alcohol use disorder, severe, dependence Status: Acute Interventions: 10/25/17 17:53 * Assess 7x/week regarding severity of withdrawal * Educate regarding risks, benefits, side effects and alternatives of medications * Use Motivational Interviewing for abstinence * Use CBT for relapse prevention * Medication management for withdrawal symptoms * Encourage medication assisted treatment (2) Major depressive disorder, recurrent severe without psychotic features Status: Acute Interventions: 10/25/17 17:52 * Assess/adjust medications daily and /or as needed * See patient on an individual basis 7x/week to assess symptoms of depression * Monitor for side effects & effectiveness of medications
[2017-10-25] MEDS: Multiple Vitamins Tab PO SCH (10:28)
[2017-10-25 15:52] VITALS: RESP 18
--- NOTE | 2017-10-25 17:58 | PCM.PSYCH ---
Initial Psychiatric Evaluation - Initial Psychiatric Evaluation Type of Admission: Voluntary Legal Status: Capacity History of Present Illness and Precipitating Events: Patient is a 42 years old, single, unemployed, male with history of major depressive disorder and alcohol use disorder, noncompliant with treatment was admitted due to withdrawing from alcohol. During evaluation patient was very guarded to provide history, most of the history was obtained from previous records. Patient reported that he is not depressed anymore. According to history patient was admitted multiple times for admission and suicidal ideations. His last admission was about one month ago at [facility] psychiatric unit. Alcohol: According to patient he started drinking alcohol in 2014, increased gradually up to 2 pints of vodka daily. Last drink was yesterday, 1 pint. He smokes 3-4 cigarettes daily. He was born in [place], has high school graduation. Not working. Lost job first few months ago. Never and has no children. Lives with a friend. His height is 6 feet 1 inch and weight is 230 pounds. Current Medications: Active Medications Generic Name Dose Route Start Last Admin Trade Name Bertinq PRN Reason Stop Dose Admin Chlordiazepoxide 25 mg 10/25/17 00:00 10/25/17 17:33 Librium PO 10/28/17 23:59 25 mg Q6H TOREY Administration Taper Folic Acid 1 mg 10/25/17 10:00 10/25/17 10:28 Folic Acid PO 1 mg DAILY TOREY Administration Gabapentin 300 mg 10/24/17 23:45 10/25/17 17:33 Neurontin PO 300 mg BID TOREY Administration Hydroxyzine HCl 25 mg 10/24/17 23:45 10/25/17 12:44 Atarax PO 25 mg Q6H PRN Administration Anxiety Ibuprofen 400 mg 10/24/17 23:54 Motrin Tab PO Q6 PRN Pain, moderate (4-7) Mirtazapine 30 mg 10/25/17 22:00 Remeron PO HS TOREY Multivitamins 1 tab 10/25/17 10:00 10/25/17 10:28 Hexavitamin PO 1 tab DAILY TOREY Administration Thiamine HCl 100 mg 10/25/17 10:00 10/25/17 10:28 Vitamin B1 Tab PO 100 mg DAILY TOREY Administration Trazodone HCl 100 mg 10/24/17 23:45 10/24/17 23:58 Desyrel PO 100 mg HS TOREY Administration Past Psychiatric History - Past Psychiatric History Previous Treatment History: Inpatient At [facility]: Mostly at [facility] History of Abuse: None reported History of ETOH/Drug Use: See HPI History of Family Illness: None reported Pertinent Medical Hx (Current Medical&Sleep Prob, Allergies): Allergies Allergy/AdvReac Type Severity Reaction Status Date / Time FISH Allergy ANAPHYLAXIS Verified 10/24/17 19:34 shellfish derived Allergy ANAPHYLAXIS Verified 10/24/17 19:34 No Known Home Med 10/24/17 Review of Systems - Psychiatric Psychiatric: As Per HPI Mental Status Examination - Personal Presentation Personal Presentation: Looks stated age - Affect Affect: Flat - Motor Activity Motor Activity: Calm - Reliability in Providing Information Reliability in Providing Information: Fair - Speech Speech: Relevant - Mood Mood: Anxious - Formal Thought Process Formal Thought Process: No Impairment - Hallucinations/Delusions Hallucinations: Other (None reported) Delusions: Other - Obsessions/Compulsions Obsessions: None Compulsions: None - Cognitive Functions Orientation: Person, Place, Situation, Time Sensorium: Alert Attention/Concentration: Attentive Abstract Thinking: Patrick Estimate of Intelligence: Average Judgement: Intact, as evidence by: Insight regarding need for hospitalization Memory: Recent intact, as evidence by: Ability to recall events of the day, Remote intact, as evidenced by: Ability to recall historical events - Risk Risk: Withdrawal, Diminished functioning - Strength & Assets Inventory Strength & Assets Inventory: Cooperative - Limitations Limitations: Other DSM 5 DX - DSM 5 DSM 5 Diagnosis: Alcohol use disorder severe Major depressive disorder recurrent severe without psychotic features - Recommended/Plan of Treatment Treatment Recommendations and Plan of Treatment: Patient education. Supportive therapy. CBT for relapse prevention. MD for abstinence. We'll start Librium taper for alcohol withdrawal symptoms. Remeron 30 mg at bedtime. Patient was discharged on this dose about a month ago. Other when necessary medications. Patient wants to go to [facility] for follow-up care after discharge from the hospital. Projected ELOS: 4-5 days - Smoking Cessation Smoking Cessation Initiated: No Reason for not providing: Patient smokes 3-4 cigarettes daily and refused to get nicotine patch.
[2017-10-26] MEDS: Multiple Vitamins Tab PO SCH (09:59)
--- NOTE | 2017-10-26 10:17 | PCM.PYCHPN ---
Psychiatric Progress Note - Psychiatric Progress Note Patient seen today, length of contact: 18 min Patient Chief Complaint: "I needed help" Problems Identified/Issues Discussed: The pt is seen, chart reviewed, case discussed with staff. The pt is compliant with medications and reports no side-effects. Symptoms are improving but needs more time to stabilize. How he relapsed and what he should do differently discussed in detail. After care discussed, support and psychoeducation given. He will try rehab Medication Change: Yes (detox changes daily) Medical Record Reviewed: Yes Mental Status Examination - Cognitive Function Orientation: Person, Place, Situation, Time Memory: Intact Attention: WNL Concentration: Poor Association: WNL Fund of Knowledge: WNL - Mood Mood: Anxious - Affect Affect: Constricted - Speech Speech: Appropriate - Formal Thought Process Formal Thought Process: No Impairment - Suicidal Ideation Suicidal Ideation: No - Homicidal Ideation Homicidal Ideation: No Goal/Treatment Plan - Goal/Treatment Plan Need for Continued Stay: Discharge may exacerbated symptoms, Severe functional impairment Progress Toward Problem(s) and Goals/Treatment Plan: Librium detox As needed medications Gabapentin for augmentation if needed All risks, benefits and alternatives of medications, including no medications, discussed and the patient understood and agreed. Attend groups and activities Supportive therapy and psychoeducation [place] for abstinence CBT for relapse prevention Encourage MAT - Naltrexone started Refer to rehab or IOP Attend self-help groups as well ID for smoking cessation and patch if needed Estimated Date of D/C: 10/28/17 - Smoking Cessation Smoking Cessation Initiated: Yes
[2017-10-26] MEDS ORDERED: Naltrexone 25 MG TAB PO SCH (11:00)
[2017-10-26] MEDS ORDERED: Magnesium Hydroxide Susp 30 ml UD PO ONE (15:30)
[2017-10-27] MEDS: Multiple Vitamins Tab PO SCH (09:42)
--- NOTE | 2017-10-27 12:04 | PCM.PYCHPN ---
Psychiatric Progress Note - Psychiatric Progress Note Patient seen today, length of contact: 15 min Patient Chief Complaint: "I needed help" Problems Identified/Issues Discussed: The pt is seen, chart reviewed, case discussed with staff. The pt is compliant with medications and reports no side-effects. Symptoms are improving but needs more time to stabilize. How he relapsed and what he should do differently discussed in detail. After care discussed, support and psychoeducation given. He will try rehab Medication Change: Yes (detox changes daily) Medical Record Reviewed: Yes Mental Status Examination - Cognitive Function Orientation: Person, Place, Situation, Time Memory: Intact Attention: WNL Concentration: Poor Association: WNL Fund of Knowledge: WNL - Mood Mood: Anxious - Affect Affect: Constricted - Speech Speech: Appropriate - Formal Thought Process Formal Thought Process: No Impairment - Suicidal Ideation Suicidal Ideation: No - Homicidal Ideation Homicidal Ideation: No Goal/Treatment Plan - Goal/Treatment Plan Need for Continued Stay: Discharge may exacerbated symptoms, Severe functional impairment Progress Toward Problem(s) and Goals/Treatment Plan: Librium detox As needed medications Gabapentin for augmentation if needed All risks, benefits and alternatives of medications, including no medications, discussed and the patient understood and agreed. Attend groups and activities Supportive therapy and psychoeducation [place] for abstinence CBT for relapse prevention Encourage MAT - Naltrexone started Refer to rehab or IOP Attend self-help groups as well [place] for smoking cessation and patch if needed Estimated Date of D/C: 10/28/17
--- NOTE | 2017-10-28 10:31 | PCM.PYCHDC ---
Mental Status Examination - Mental Status Examination Orientation: Person Discharge Summary - Discharge Note Consultations:: List each consultation separately and include: 1. Reason for request. 2. Findings. 3. Follow-up Summary of Hospital Course include:: 1. Description of specific treatment plan utilized for patients during their course of treatmen. 2. Summarize the time- course for resolution of acute symptoms and/or regressed behaviors. 3. Describe issues identified and worked on during hospitalization. 4. Describe medication utilized. 5. Describe medical problems identified and treated. 6. Reassessment of suicide risk - Final Diagnosis (DSM 5) Condition upon Discharge: FAIR Disposition: HOME/ ROUTINE Follow-up Treatment Plan: Librium detox As needed medications Gabapentin for augmentation if needed All risks, benefits and alternatives of medications, including no medications, discussed and the patient understood and agreed. Attend groups and activities Supportive therapy and psychoeducation TX for abstinence CBT for relapse prevention Encourage MAT - Naltrexone started Refer to rehab or IOP Attend self-help groups as well TX for smoking cessation and patch if needed Prescriptions/Medication Reconciliation: Gabapentin [Neurontin] 300 mg PO BID #60 cap Mirtazapine [Remeron] 30 mg PO HS #30 tab Naltrexone [Revia] 50 mg PO DAILY #30 tab traZODone [Desyrel] 100 mg PO HS #30 tab
[2017-10-28] MEDS: Multiple Vitamins Tab PO SCH (10:33)
[2017-10-28 11:25] VITALS: BP 133/90; PULSE 91; TEMP 97.6; O2SAT 98
== END 2017-10-28 13:30 | disposition home or self-care (01) | DRG 430 ==
LOC: C.ER 19:14 → C.7D 22:27
DX: F33.2 Major depressive disorder, recurrent severe without psychotic features (principal); J44.9 Chronic obstructive pulmonary disease, unspecified; F10.220 Alcohol dependence with intoxication, uncomplicated; Y90.6 Blood alcohol level of 120-199 mg/100 ml; R45.851 Suicidal ideations; F17.210 Nicotine dependence, cigarettes, uncomplicated; S61.511A Laceration without foreign body of right wrist, initial encounter; X78.9XXA Intentional self-harm by unspecified sharp object, initial encounter

== ENCOUNTER 2017-10-30 06:42 | Emergency (ER) | payer MEDICAID ==
[2017-10-30 06:43] VITALS: BMI 31.1
[2017-10-30 06:54] VITALS: RESP 18
[2017-10-30] MEDS ORDERED: Sodium Chloride 0.9% 1,000 ML IV ONE ×2 (07:31→07:32)
--- NOTE | 2017-10-30 07:31 | C.PDOC ---
History Of Present Illness 42 Y/O MALE PRESENTS TO ED WITH C/O VOMITING, ANXIETY AND POSSIBLE RECURRENT DEHYDRATION X 2 DAYS. PATIENT SEEN 10/21 FOR SAME, HAS MULTIPLE ER ADMISSION AND RECENT DC FROM DETOX FOR ETOH ABUSE. PATIENT STATES HE HAD RECURRENT ANXIETY AND DRANK AGAIN. NO ABD PAIN, DIARRHEA. NO OTHER COMPLAINTS EXAM MILD DIST NONTOXIC HEENT NO TONGUE FASIC ABD NEG PSYCH CALM COOPERATIVE NO ACUTE INTOX, POSSIBLE ETOH WITDRAWAL NEURO NO TREMORS, GROSS FOCAL DEF SKIN WARM DRY CV RRR REMAINDER NEG Chief Complaint (Nursing): Anxiety History Per: Patient History/Exam Limitations: no limitations Onset/Duration Of Symptoms: Days Current Symptoms Are (Timing): Still Present Quality Of Discomfort: "Pain" Past Medical History Reviewed: Historical Data, Nursing Documentation, Vital Signs Vital Signs: Last Vital Signs Temp 97.7 F 10/30/17 06:50 Pulse 123 H 10/30/17 06:50 Resp 18 10/30/17 06:50 BP 143/93 H 10/30/17 06:50 Pulse Ox 99 10/30/17 08:36 - Medical History PMH: Anxiety, Arthritis, Asthma, Back Problems, Bipolar Disorder, COPD, Depression, Pancreatitis, Paranoia, Schizophrenia Surgical History: No Surg Hx - [facility] Procedures DETOXIFICATION SERVICES FOR SUBSTANCE ABUSE TREATMENT (08/07/17) GROUP POST HOLE DIGGER FOR SUBSTANCE ABUSE TREATMENT, PSYCHOEDUCATION (06/26/16) GROUP PSYCHOTHERAPY (09/15/17) INDIV PSYCHOTHERAPY FOR SUBSTANCE ABUSE TREATMENT, SUPPORT (09/02/17) INDIV PSYCHOTHERAPY FOR SUBSTANCE ABUSE, COGNITIV BEHAVIORAL (07/31/17) INDIV PSYCHOTHERAPY FOR SUBSTANCE ABUSE, MOTIVATION ENHANCE (09/02/17) INDIVIDUAL PSYCHOTHERAPY, COGNITIVE-BEHAVIORAL (09/15/17) INDIVIDUAL PSYCHOTHERAPY, SUPPORTIVE (09/15/17) INJECT/INFUSE NEC (10/10/14) MEDICATION MANAGEMENT (04/23/17) NEBULIZER THERAPY (02/16/14) Family History: States: No Known Family Hx - Social History Hx Tobacco Use: Yes (light smoker) Hx Alcohol Use: Yes Hx Substance Use: No - Immunization History Hx Tetanus Toxoid Vaccination: No Hx Influenza Vaccination: Yes Hx Pneumococcal Vaccination: Yes Review Of Systems Constitutional: Negative for: Fever, Chills Gastrointestinal: Positive for: Vomiting. Negative for: Nausea, Abdominal Pain , Diarrhea Skin: Negative for: Rash Psych: Positive for: Anxiety. Negative for: Suicidal ideation, Withdrawal Physical Exam - Physical Exam Appears: Non-toxic, Other (In mild distress) Skin: Warm, Dry, No Rash Head: Atraumatic, Normacephalic Eye(s): bilateral: PERRL, EOMI Oral Mucosa: Moist Tongue: Normal Appearing, Other (No tongue fasciculation) Neck: Normal ROM Cardiovascular: Rhythm Regular Respiratory: Normal Breath Sounds, No Rales, No Rhonchi, No Wheezing Gastrointestinal/Abdominal: Soft, No Tenderness, No Guarding, No Rebound Extremity: Normal ROM, Capillary Refill (<2 seconds), No Deformity Neurological/Psych: Oriented x3, Normal Speech, Other (calm, cooperative. Possible ETOH withdrawal. No acute ETOH intox. No tremors) Gait: Steady ED Course And Treatment O2 Sat by Pulse Oximetry: 99 (RA) Pulse Ox Interpretation: Normal Progress - Re-Evaluation Re-evaluation Note: 10/30/17 08:32 PER RN, PT NOTED TO SLOW IV DRIP RATE. PT APPEARS COMFORTABLE NAD VSS. IMPROVED COMPARED TO INITIAL. D/W STATES JENNIE WILL HAVE SYSTEM SUPPORT DEVELOPER EVAL 10/30/17 09:35 NO RECUR NV SINCE PRIOR EVAL. VSS - Data Reviewed Data Reviewed: Old records Disposition Counseled Patient/Family Regarding: Diagnosis, Need For Followup - Disposition Referrals: Non [facility] Provider, [Primary Care Provider] - [facility] [Outside] [facility] [Outside] Disposition: HOME/ ROUTINE Disposition Time: 09:36 Condition: IMPROVED Instructions: Alcohol Abuse and Alcoholism (DC) Forms: [employer] (Israeli) - Clinical Impression Clinical Impression: Alcohol abuse - Scribe Statement The provider has reviewed the documentation as recorded by the Scribcarter beltran All medical record entries made by the Scribe were at my direction and personally dictated by me. I have reviewed the chart and agree that the record accurately reflects my personal performance of the history, physical exam, medical decision making, and the department course for this patient. I have also personally directed, reviewed, and agree with the discharge instructions and disposition.
[2017-10-30] MEDS ORDERED: Sodium Chloride 0.9% 1,000 ML ONE ×2 (07:39→08:33)
[2017-10-30 09:40] VITALS: BP 131/88; PULSE 100; TEMP 99; O2SAT 98
== END 2017-10-30 10:15 | disposition home or self-care (01) ==
LOC: SUPCPDRO 06:42 → C.ER 06:42
DX: F10.10 Alcohol abuse, uncomplicated (principal); Y90.9 Presence of alcohol in blood, level not specified
CPT/HCPCS: 96361; 96374; 99284; J2405; J7030

== ENCOUNTER 2017-11-01 20:04 | Emergency (ER) | payer MEDICAID ==
[2017-11-01 20:04] VITALS: BMI 31.1
[2017-11-01 20:17] VITALS: BP 150/104; PULSE 86; RESP 18; TEMP 98.2; O2SAT 99
--- NOTE | 2017-11-01 20:23 | C.PDOC ---
Time Seen by Provider: 11/01/17 20:23 Chief Complaint (Nursing): Medical Clearance Past Medical History Vital Signs: Last Vital Signs Temp 98.2 F 11/01/17 20:14 Pulse 86 11/01/17 20:14 Resp 18 11/01/17 20:14 BP 150/104 H 11/01/17 20:14 Pulse Ox 99 11/01/17 20:14 - Medical History PMH: Anxiety, Arthritis, Asthma, Back Problems, Bipolar Disorder, COPD, Depression, Pancreatitis, Paranoia, Schizophrenia Denies: HIV, HTN, Chronic Kidney Disease, Seizures, Sexually Transmitted Disease - [facility] Procedures DETOXIFICATION SERVICES FOR SUBSTANCE ABUSE TREATMENT (08/07/17) GROUP MACHINERY DISMANTLER FOR SUBSTANCE ABUSE TREATMENT, PSYCHOEDUCATION (06/26/16) GROUP PSYCHOTHERAPY (09/15/17) INDIV PSYCHOTHERAPY FOR SUBSTANCE ABUSE TREATMENT, SUPPORT (09/02/17) INDIV PSYCHOTHERAPY FOR SUBSTANCE ABUSE, COGNITIV BEHAVIORAL (07/31/17) INDIV PSYCHOTHERAPY FOR SUBSTANCE ABUSE, MOTIVATION ENHANCE (09/02/17) INDIVIDUAL PSYCHOTHERAPY, COGNITIVE-BEHAVIORAL (09/15/17) INDIVIDUAL PSYCHOTHERAPY, SUPPORTIVE (09/15/17) INJECT/INFUSE NEC (10/10/14) MEDICATION MANAGEMENT (04/23/17) NEBULIZER THERAPY (02/16/14) Family History: States: Unknown Family Hx - Social History Hx Tobacco Use: Yes (light smoker) Hx Alcohol Use: Yes Hx Substance Use: No - Immunization History Hx Tetanus Toxoid Vaccination: No Hx Influenza Vaccination: Yes Hx Pneumococcal Vaccination: Yes ED Course And Treatment O2 Sat by Pulse Oximetry: 99 Pulse Ox Interpretation: Normal Disposition Counseled Patient/Family Regarding: Studies Performed, Diagnosis - Disposition Disposition Time: 20:23
--- NOTE | 2017-11-01 20:29 | C.PDOC ---
History Of Present Illness 42 year old male presents to the ED intoxicated for evaluation od feeling dehydrated. Patient has an extensive history of alcohol abuse, admits to drinking today. While in the ED patient is obnoxious, argumentative, intoxicated. Patient denies SI/HI, hallucinations, dizziness, headache, SOB, CP. Time Seen by Provider: 11/01/17 20:23 Chief Complaint (Nursing): Medical Clearance History Per: Patient History/Exam Limitations: intoxication Onset/Duration Of Symptoms: Hrs Current Symptoms Are (Timing): Still Present Suicide/Self Injury Attempted (Context): None Modifying Factor(s): Alcohol Associated Symptoms: denies: Depression, Suicidal Thoughts, Suicidal Plan Involuntary Hold By: None Recent travel outside of the [place]: No Additional History Per: Patient, EMS Past Medical History Reviewed: Historical Data, Nursing Documentation, Vital Signs Vital Signs: Last Vital Signs Temp 98.2 F 11/01/17 20:14 Pulse 86 11/01/17 20:14 Resp 18 11/01/17 20:14 BP 150/104 H 11/01/17 20:14 Pulse Ox 99 11/01/17 20:29 - Medical History PMH: Anxiety, Arthritis, Asthma, Back Problems, Bipolar Disorder, COPD, Depression, Pancreatitis, Paranoia, Schizophrenia Denies: HIV, HTN, Chronic Kidney Disease, Seizures, Sexually Transmitted Disease Surgical History: No Surg Hx - [facility] Procedures DETOXIFICATION SERVICES FOR SUBSTANCE ABUSE TREATMENT (08/07/17) GROUP MACHINE OPERATOR HAY STACKER FOR SUBSTANCE ABUSE TREATMENT, PSYCHOEDUCATION (06/26/16) GROUP PSYCHOTHERAPY (09/15/17) INDIV PSYCHOTHERAPY FOR SUBSTANCE ABUSE TREATMENT, SUPPORT (09/02/17) INDIV PSYCHOTHERAPY FOR SUBSTANCE ABUSE, COGNITIV BEHAVIORAL (07/31/17) INDIV PSYCHOTHERAPY FOR SUBSTANCE ABUSE, MOTIVATION ENHANCE (09/02/17) INDIVIDUAL PSYCHOTHERAPY, COGNITIVE-BEHAVIORAL (09/15/17) INDIVIDUAL PSYCHOTHERAPY, SUPPORTIVE (09/15/17) INJECT/INFUSE NEC (10/10/14) MEDICATION MANAGEMENT (04/23/17) NEBULIZER THERAPY (02/16/14) Family History: States: Unknown Family Hx - Social History Hx Tobacco Use: Yes (light smoker) Hx Alcohol Use: Yes Hx Substance Use: No - Immunization History Hx Tetanus Toxoid Vaccination: No Hx Influenza Vaccination: Yes Hx Pneumococcal Vaccination: Yes Review Of Systems Constitutional: Negative for: Fever, Chills Eyes: Negative for: Vision Change Cardiovascular: Negative for: Chest Pain Respiratory: Negative for: Cough, Shortness of Breath Gastrointestinal: Negative for: Nausea, Vomiting, Abdominal Pain Skin: Negative for: Rash Neurological: Negative for: Weakness, Numbness, Headache, Dizziness Physical Exam - Physical Exam Appears: Non-toxic, No Acute Distress, Combative, Other (argumentative, intoxicated) Skin: Normal Color, Warm, Dry, Other (no skin tenting) Head: Atraumatic, Normacephalic Eye(s): bilateral: Normal Inspection Oral Mucosa: Moist Neck: Normal ROM, Supple Chest: Symmetrical Cardiovascular: Rhythm Regular Respiratory: Normal Breath Sounds, No Rales, No Rhonchi, No Wheezing Gastrointestinal/Abdominal: Soft, No Tenderness, No Guarding, No Rebound Extremity: Normal ROM, No Tenderness, No Swelling Neurological/Psych: Oriented x3, Normal Speech Gait: Steady ED Course And Treatment O2 Sat by Pulse Oximetry: 99 (ON RA) Pulse Ox Interpretation: Normal Medical Decision Making Medical Decision Making: While in the ED patient is eating and drinking a pitch of water. typical alcohol abuse no s/s of dehydration extensive alcohol and psych hx. safe for d/c Disposition Doctor Will See Patient In The: Office Counseled Patient/Family Regarding: Studies Performed, Diagnosis - Disposition Referrals: Alcoholics Anonymous [Outside] [facility] [Outside] [facility] [Outside] [facility] [Outside] [facility] [Outside] [facility] [Outside] Non [facility] Provider, [Primary Care Provider] - Disposition: HOME/ ROUTINE Disposition Time: 20:28 Condition: GOOD Instructions: Alcohol Abuse and Alcoholism (DC) Forms: [employer] (Mozambican) - Clinical Impression Clinical Impression: Alcohol abuse - Scribe Statement The provider has reviewed the documentation as recorded by the Scribe Doug Whiteside All medical record entries made by the Scribe were at my direction and personally dictated by me. I have reviewed the chart and agree that the record accurately reflects my personal performance of the history, physical exam, medical decision making, and the department course for this patient. I have also personally directed, reviewed, and agree with the discharge instructions and disposition.
== END 2017-11-01 20:56 | disposition home or self-care (01) ==
LOC: SUPCPDRO 20:04 → C.ER 20:04
DX: F10.129 Alcohol abuse with intoxication, unspecified (principal); Y90.9 Presence of alcohol in blood, level not specified

== ENCOUNTER 2018-03-23 10:13 | Emergency (ER) | payer MEDICAID ==
[2018-03-23 10:13] VITALS: BMI 31.1
[2018-03-23 10:35] VITALS: BP 146/101; PULSE 104; TEMP 98.4; O2SAT 95
[2018-03-23 11:11] LABS: URINE BILIRUBIN NEGATIVE (NEGATIVE); URINE BLOOD 1+ (NEGATIVE); URINE CLARITY Clear (Clear); URINE COLOR Yellow (YELLOW); URINE GLUCOSE (UA) NORMAL (Normal); URINE LEUKOCYTE ESTERASE NEG Leu/uL (Negative); URINE PROTEIN NEGATIVE (NEGATIVE); URINE UROBILINOGEN NORMAL mg/dL (0.2-1.0)
[2018-03-23 11:33] LABS: BARBITURATES, UR NEGATIVE (NEGATIVE); BENZODIAZEPINES, UR NEGATIVE (NEGATIVE); OPIATES, UR NEGATIVE (NEGATIVE); PHENCYCLIDINE, UR NEGATIVE (NEGATIVE)
--- NOTE | 2018-03-23 12:08 | C.PDOC ---
History Of Present Illness 43 y/o male presents to the ER complaining of lower back discomfort which has been present for the past 1 week. Patient states that he takes Motrin 400 mg every 12 hours with some relief. Denies having fever, chills, dysuria, hematuria, and trauma. Of note, patient has history of psychiatric illness and ETOH abuse. He notes that he is not compliant with medications for his psychiatric illness. He started drinking ETOH a few days, however he did not drink today. Time Seen by Provider: 03/23/18 10:46 Chief Complaint (Nursing): Male Genitourinary History Per: Patient History/Exam Limitations: no limitations Onset/Duration Of Symptoms: Days Current Symptoms Are (Timing): Still Present Severity: Moderate Past Medical History Reviewed: Historical Data, Nursing Documentation, Vital Signs Vital Signs: Last Vital Signs Temp 98.4 F 03/23/18 10:28 Pulse 104 H 03/23/18 10:28 Resp 20 03/23/18 10:28 BP 146/101 H 03/23/18 10:28 Pulse Ox 95 03/23/18 10:28 - Medical History PMH: Anxiety, Arthritis, Asthma, Back Problems, Bipolar Disorder, COPD, Depression, Pancreatitis, Paranoia, Schizophrenia Denies: HIV, HTN, Chronic Kidney Disease, Seizures, Sexually Transmitted Disease Other Surgeries: Hx of surgeries - [facility] Procedures DETOXIFICATION SERVICES FOR SUBSTANCE ABUSE TREATMENT (08/07/17) GROUP MEDICAL OFFICE SPECIALIST FOR SUBSTANCE ABUSE TREATMENT, PSYCHOEDUCATION (06/26/16) GROUP PSYCHOTHERAPY (09/15/17) INDIV PSYCHOTHERAPY FOR SUBSTANCE ABUSE TREATMENT, SUPPORT (09/02/17) INDIV PSYCHOTHERAPY FOR SUBSTANCE ABUSE, COGNITIV BEHAVIORAL (07/31/17) INDIV PSYCHOTHERAPY FOR SUBSTANCE ABUSE, MOTIVATION ENHANCE (09/02/17) INDIVIDUAL PSYCHOTHERAPY, COGNITIVE-BEHAVIORAL (09/15/17) INDIVIDUAL PSYCHOTHERAPY, SUPPORTIVE (09/15/17) INJECT/INFUSE NEC (10/10/14) MEDICATION MANAGEMENT (04/23/17) NEBULIZER THERAPY (02/16/14) Family History: States: No Known Family Hx - Social History Hx Tobacco Use: Yes (light smoker) Hx Alcohol Use: Yes (hx of alcohol abuse) Hx Substance Use: No - Immunization History Hx Tetanus Toxoid Vaccination: No Hx Influenza Vaccination: No Hx Pneumococcal Vaccination: Yes Review Of Systems Except As Marked, All Systems Reviewed And Found Negative. Constitutional: Negative for: Fever, Chills Genitourinary: Negative for: Dysuria, Frequency, Incontinence, Hematuria Musculoskeletal: Positive for: Back Pain Physical Exam - Physical Exam Appears: No Acute Distress, Other (very tall large white male, mildly tremulous) Skin: Normal Color, Warm, Dry Head: Atraumatic, Normacephalic Eye(s): bilateral: Normal Inspection, Other (no scleral icterus) Nose: Normal Oral Mucosa: Moist Neck: Supple, Other (no JVD) Chest: Symmetrical Cardiovascular: Rhythm Regular Respiratory: Normal Breath Sounds, No Rales, No Rhonchi, No Wheezing Gastrointestinal/Abdominal: Bowel Sounds (normal bowel sounds), Soft, No Tenderness, No Distention, No Guarding, No Rebound, Other (obese, globular abdomen, no shift in dullness, no caput medusae, no spider angioma) Extremity: Normal ROM, Tenderness (minimal tenderness to bilateral sacroiliac regions), No Pedal Edema Neurological/Psych: Oriented x3, Normal Speech ED Course And Treatment - Laboratory Results Lab Interpretation: Normal (UA neg.) O2 Sat by Pulse Oximetry: 95 (RA) Pulse Ox Interpretation: Normal Progress Note: UA ordered. Patient treated with Pepcid PO and Motrin PO. Medical Decision Making Medical Decision Making: low back strain Disposition Doctor Will See Patient In The: Office Counseled Patient/Family Regarding: Studies Performed, Diagnosis - Disposition Referrals: Alcoholics Anonymous [Outside] [facility] [Outside] [facility] [Outside] [facility] [Outside] [facility] [Outside] Disposition: HOME/ ROUTINE Disposition Time: 12:08 Condition: GOOD Additional Instructions: lower back strain: ice packs 1/2 hour per hour, nothing hot no hot showers Motrin/Advil/ibuprofen 600 mg every 6 hours as needed outpatient followup as needed Urinalysis is NORMAL today- no UTI/Pyelonephritis Instructions: Alcohol Use - When Is Drinking a Problem?, Lumbar Muscle Strain (DC) Forms: [employer] (Slovak) - Clinical Impression Clinical Impression: Chronic back pain, Alcohol dependence - Scribe Statement The provider has reviewed the documentation as recorded by the Lenka Gu Provider Attestation: All medical record entries made by the Kennaibcarter were at my direction and personally dictated by me. I have reviewed the chart and agree that the record accurately reflects my personal performance of the history, physical exam, medical decision making, and the department course for this patient. I have also personally directed, reviewed, and agree with the discharge instructions and disposition.
[2018-03-23 12:36] VITALS: RESP 16
== END 2018-03-23 12:34 | disposition home or self-care (01) ==
LOC: C.ER 10:13
DX: G89.29 Other chronic pain (principal); M54.5 Low back pain; F10.20 Alcohol dependence, uncomplicated; Y90.9 Presence of alcohol in blood, level not specified

== ENCOUNTER 2018-06-29 16:43 | Emergency (ER) | payer MEDICAID ==
[2018-06-29 16:43] VITALS: BMI 31.1
--- NOTE | 2018-06-29 17:24 | C.PDOC ---
History Of Present Illness 43 y/o male with no PMHx presents to the ED complaining of persistent swelling to the top of his left hand, onset a few days ago. States he underwent detox at [facility] recently and had an IV in the left hand. He was seen at [facility] ED yesterday for the swelling and had x-ray, US, and labs done. Patient was diagnosed with superficial thrombophlebitis and cellulitis, however, he left prior to receiving treatment and all his prescriptions. States he did not feel like waiting anymore. 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 He notes the area appears unchanged today. No new fever, chills, or trauma. Patient has a prior hx of substance abuse but denies recent use. Time Seen by Provider: 06/29/18 17:10 Chief Complaint (Nursing): Upper Extremity Problem/Injury History Per: Patient History/Exam Limitations: no limitations Onset/Duration Of Symptoms: Days Current Symptoms Are (Timing): Still Present Additional History Per: Prior Records Past Medical History Reviewed: Historical Data, Nursing Documentation, Vital Signs Vital Signs: Last Vital Signs Temp 97.6 F 06/29/18 16:54 Pulse 125 H 06/29/18 16:54 Resp 20 06/29/18 16:54 BP 159/110 H 06/29/18 16:54 Pulse Ox 98 06/29/18 16:54 - Medical History PMH: Anxiety, Arthritis, Asthma, Back Problems, Bipolar Disorder, COPD, Depression, Pancreatitis, Paranoia, Schizophrenia Denies: HIV, HTN, Chronic Kidney Disease, Seizures, Sexually Transmitted Disease Other Surgeries: cyst removal from axilla - [facility] Procedures DETOXIFICATION SERVICES FOR SUBSTANCE ABUSE TREATMENT (08/07/17) GROUP PARKING OFFICER FOR SUBSTANCE ABUSE TREATMENT, PSYCHOEDUCATION (06/26/16) GROUP PSYCHOTHERAPY (09/15/17) INDIV PSYCHOTHERAPY FOR SUBSTANCE ABUSE TREATMENT, SUPPORT (09/02/17) INDIV PSYCHOTHERAPY FOR SUBSTANCE ABUSE, COGNITIV BEHAVIORAL (07/31/17) INDIV PSYCHOTHERAPY FOR SUBSTANCE ABUSE, MOTIVATION ENHANCE (09/02/17) INDIVIDUAL PSYCHOTHERAPY, COGNITIVE-BEHAVIORAL (09/15/17) INDIVIDUAL PSYCHOTHERAPY, SUPPORTIVE (09/15/17) INJECT/INFUSE NEC (10/10/14) MEDICATION MANAGEMENT (04/23/17) NEBULIZER THERAPY (02/16/14) Family History: States: Unknown Family Hx - Social History Hx Tobacco Use: Yes (light smoker) Hx Alcohol Use: Yes (hx of alcohol abuse) Hx Substance Use: No - Immunization History Hx Tetanus Toxoid Vaccination: No Hx Influenza Vaccination: No Hx Pneumococcal Vaccination: Yes Review Of Systems Except As Marked, All Systems Reviewed And Found Negative. Constitutional: Negative for: Fever, Chills Cardiovascular: Negative for: Chest Pain Respiratory: Negative for: Shortness of Breath Gastrointestinal: Negative for: Vomiting Musculoskeletal: Positive for: Hand Pain (with swelling to dorsum of left hand) Skin: Positive for: Rash (redness to left hand) Neurological: Negative for: Weakness, Numbness, Incoordination Physical Exam - Physical Exam Appears: Non-toxic, In Acute Distress (mild distress), Other (Appears uncomfortable) Skin: Warm, Dry Head: Atraumatic, Normacephalic Eye(s): bilateral: Normal Inspection, PERRL, EOMI Neck: Normal ROM Chest: Symmetrical Cardiovascular: Rhythm Regular, No Murmur Respiratory: Normal Breath Sounds, No Accessory Muscle Use, Other (NARD) Gastrointestinal/Abdominal: Soft, No Tenderness, No Distention Extremity: Normal ROM (Able to range the left hand/wrist without difficulty), No Tenderness, No Swelling (or edema to hand), Other (erythema to dorsum of left hand, no fluctuance, no streaking, skin is intact) Pulses: Left Radial: Normal, Right Radial: Normal Neurological/Psych: Oriented x3, Normal Motor, Normal Sensation, Other (No acute intoxication or withdrawal) ED Course And Treatment O2 Sat by Pulse Oximetry: 98 (RA) Pulse Ox Interpretation: Normal Medical Decision Making Medical Decision Making: Plan: - 1 tab PO Percocet for pain control - PO Keflex and Bactrim given in the ED Patient will be discharged home with RX for antibiotics. Return precautions discussed. Disposition Counseled Patient/Family Regarding: Diagnosis, Need For Followup, Rx Given - Disposition Referrals: [facility] [Outside] [facility] [Outside] Disposition: HOME/ ROUTINE Disposition Time: 17:29 Condition: IMPROVED Prescriptions: Cephalexin [cephalexin] 500 mg PO BID #14 cap Sulfamethoxazole/Trimethoprim [Bactrim DS 800 mg-160 mg] 1 tab PO BID #14 tab Instructions: Phlebitis (DC), Cellulitis (Skin Infection), Adult (DC), Superficial Phlebitis Forms: [employer] (Mongolian), Work Excuse - Clinical Impression Clinical Impression: Cellulitis, Thrombophlebitis - Scribe Statement The provider has reviewed the documentation as recorded by the Kennaibcarter Yao Provider Attestation: All medical record entries made by the Lenka were at my direction and personally dictated by me. I have reviewed the chart and agree that the record accurately reflects my personal performance of the history, physical exam, medical decision making, and the department course for this patient. I have also personally directed, reviewed, and agree with the discharge instructions and disposition.
[2018-06-29] MEDS ORDERED: Tmp-Smz 800 mg-160 mg DS Tab PO STA (17:27)
[2018-06-29] MEDS ORDERED: Oxycodone/Acetaminophen 5/325 mg Tab PO STA (17:28)
[2018-06-29] MEDS ORDERED: Tmp-Smz 800 mg-160 mg DS Tab ONE (17:39)
[2018-06-29] MEDS ORDERED: Oxycodone/Acetaminophen 5/325 mg Tab ONE (17:39)
[2018-06-29 18:04] VITALS: BP 156/98; PULSE 96; RESP 18; TEMP 97.8
[2018-06-30 07:02] VITALS: O2SAT 98
--- NOTE | 2018-06-30 12:24 | CARD ---
APPROVED REPORT Date of service: 06/29/2018 EKG Measurement Heart [id number] <Conclusion> Sinus tachycardia Otherwise normal ECG
== END 2018-06-29 18:04 | disposition home or self-care (01) ==
LOC: C.ER 16:43
DX: L03.114 Cellulitis of left upper limb (principal); I80.8 Phlebitis and thrombophlebitis of other sites; M19.90 Unspecified osteoarthritis, unspecified site